=== PATIENT | female | born 1995 | race Caucasian/White ===

== ENCOUNTER 2017-06-12 16:44 | Emergency (ER) | payer BC, OTHER ==
[2017-06-12] MEDS ORDERED: MORPHINE 4 MG/ML SYR ONE ×2 (18:40→21:02)
[2017-06-12] MEDS ORDERED: ONDANSETRON 4 MG/2 ML VIAL ONE (18:41)
[2017-06-12] MEDS ORDERED: NA CHLORIDE 0.9% 1,000 ML ONE (18:43)
[2017-06-12 18:50] LABS: Absolute Monocytes 0.8 K/uL (0.1-1.3); Absolute Neutrophil 9.7 K/uL (1.8-8.0); Basophils % 0.6 % (0-1.3); Eosinophils % 0.6 % (0-4.4); Hematocrit 39.7 % (36.0-45.0); MCH 27.9 pg (27.0-35.0); MPV 7.4 fL (7.6-11.3); Monocytes % 5.8 % (3.3-12.3); RBC Red Blood Cell Count 4.67 M/uL (3.86-4.86)
[2017-06-12 19:05] LABS: Urine Blood TRACE (NEG); Urine Glucose NEGATIVE (NEG); Urine Protein NEGATIVE (NEG); Urine Specific Gravity 1.025 (1.005-1.030)
[2017-06-12 19:07] LABS: Bicarbonate 26 mEq/L (21-31); Glucose Level 88 mg/dL (65-120); Lipase 23 U/L (22-51); Potassium 3.8 mEq/L (3.6-5.0); Sodium Level 137 mEq/L (135-145)
[2017-06-12 19:07] LABS: Urine Bacteria <20 /HPF (<20); Urine Culture Reflex Order NOT NEEDED; Urine Mucus 1+ /HPF (NONE SEEN); Urine RBC <5 /HPF (NONE SEEN)
[2017-06-12 19:13] LABS: ALT/SGPT 16 IU/L (10-60); AST/SGOT 18 IU/L (10-42); Albumin 4.6 g/dL (3.2-5.5); Alkaline Phosphatase 67 IU/L (42-121); Amylase Level 45 U/L (28-100); BUN Blood Urea Nitrogen 14 mg/dL (6-20); Bilirubin Direct < 0.1 mg/dL (0-0.2); Bilirubin Total 0.3 mg/dL (0.3-1.2); Protein, Total 7.7 g/dL (6.0-8.3)
--- NOTE | 2017-06-12 20:42 | RAD REPORT ---
EXAM DESCRIPTION: CT - Abdomen Pelvis W Contrast - 06/12/2017 8:28 pm CLINICAL HISTORY: Right lower quadrant pain, history of ovarian cysts COMPARISON: November 2015 TECHNIQUE: Biphasic, helical CT imaging of the abdomen and pelvis was performed following 100 ml non -ionic IV contrast. Oral contrast was given. All CT scans are performed using dose optimization technique as appropriate and may include automated exposure control or mA/KV adjustment according to patient size. FINDINGS: No suspicious findings in the lung bases. The liver, spleen, and pancreas show no suspicious findings. Gallbladder and biliary tree are also wi thout suspicious finding. Symmetric renal function is seen with no hydronephrosis or suspicious renal mass. No pyelonephritis o r acute renal parenchymal process. No urinary bladder abnormality. Uterus and left ovary show no suspicious findings. An approximately 3 centimeter ruptured or involuting right ovarian cyst present. There is free fluid adjacent to the right ovary and in the cul-de-sac. This is relatively low in attenuation and without any significant hemorrhagic component. No dilated bowel loops or bowel wall thickening. No appendicitis findings. Cecum is low lying along t he floor the pelvis. No free air, free fluid or inflammatory stranding. No hernia, mass or bulky lym phadenopathy. No adrenal abnormality. No suspicious bony findings. IMPRESSION: Approximately 3 centimeter ruptured or involuting right ovarian cyst with free fluid in the cul-de-sac and right adnexa. This is the most likely etiology for the patient's pain symptoms. No appendicitis or other acute GI process. No pyelonephritis or other abnormality to explain right lo wer quadrant symptoms.
[2017-06-12] MEDS ORDERED: KETOROLAC 30 MG/ML INJ ONE (21:03)
--- NOTE | 2017-06-12 21:05 | EDPHYS ---
Physician Documentation [facility] Name: Maria Rivera Age: 21 yrs Sex: Female : 1995 Arrival Date: 06/12/2017 Time: 16:47 Bed 30 Private MD: Manny Avery T ED Physician Alverto Mondragon HPI: 06/12 20:00 This 21 yrs old Female presents to ER via Ambulatory with complaints of pm1 Abdominal Pain. 20:00 The patient presents with abdominal pain in the lower abdomen. Onset: The pm1 symptoms/episode began/occurred 1 week(s) ago. The symptoms do not radiate. Associated signs and symptoms: Pertinent negatives: nausea, vomiting, and diarrhea, chest pain, dysuria, fever, shortness of breath. The symptoms are described as achy, constant. Modifying factors: The symptoms are alleviated by nothing, the symptoms are aggravated by nothing. Severity of pain: in the emergency department the pain is actually worse. The patient has not experienced similar symptoms in the past. The patient has not recently seen a physician. Patient with history of ovarian cysts. 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 - Social history:: Smoking status: Patient/guardian denies using tobacco. ROS: 20:00 Constitutional: Negative for fever, chills, and weight loss, Eyes: Negative for injury, pm1 pain, redness, and discharge, ENT: Negative for injury, pain, and discharge, Neck: Negative for injury, pain, and swelling, Cardiovascular: Negative for chest pain, palpitations, and edema, Respiratory: Negative for shortness of breath, cough, wheezing, and pleuritic chest pain. 20:00 Back: Negative for injury and pain, : Negative for injury, bleeding, discharge, and swelling, MS/Extremity: Negative for injury and deformity, Skin: Negative for injury, rash, and discoloration, Neuro: Negative for headache, weakness, numbness, tingling, and seizure. 20:00 Abdomen/GI: Positive for abdominal pain, Negative for nausea, vomiting, and diarrhea. Exam: 20:00 Constitutional: This is a well developed, well nourished patient who is awake, alert, pm1 and in no acute distress. Head/Face: Normocephalic, atraumatic. Eyes: Pupils equal round and reactive to light, extra-ocular motions intact. Lids and lashes normal. Conjunctiva and sclera are non-icteric and not injected. Cornea within normal limits. Periorbital areas with no swelling, redness, or edema. ENT: Nares patent. No nasal discharge, no septal abnormalities noted. Tympanic membranes are normal and external auditory canals are clear. Oropharynx with no redness, swelling, or masses, exudates, or evidence of obstruction, uvula midline. Mucous membranes moist. Neck: Trachea midline, no thyromegaly or masses palpated, and no cervical lymphadenopathy. Supple, full range of motion without nuchal rigidity, or vertebral point tenderness. No Meningismus. Chest/axilla: Normal chest wall appearance and motion. Nontender with no deformity. No lesions are appreciated. Cardiovascular: Regular rate and rhythm with a normal S1 and S2. No gallops, murmurs, or rubs. Normal PMI, no JVD. No pulse deficits. Respiratory: Lungs have equal breath sounds bilaterally, clear to auscultation and percussion. No rales, rhonchi or wheezes noted. No increased work of breathing, no retractions or nasal flaring. Back: No spinal tenderness. No costovertebral tenderness. Full range of motion. Skin: Warm, dry with normal turgor. Normal color with no rashes, no lesions, and no evidence of cellulitis. MS/ Extremity: Pulses equal, no cyanosis. Neurovascular intact. Full, normal range of motion. Neuro: Awake and alert, GCS 15, oriented to person, place, time, and situation. Cranial nerves II-XII grossly intact. Motor strength 5/5 in all extremities. Sensory grossly intact. Cerebellar exam normal. Normal gait. 20:00 Abdomen/GI: Inspection: abdomen appears normal, Bowel sounds: normal, Palpation: soft, mild abdominal tenderness, in the left lower quadrant, mass, is not appreciated, rebound tenderness, is not appreciated. Vital Signs: 17:20 BP 133 / 65; Pulse 82; Resp 16; Temp 98.4; Pulse Ox 100% on R/A; Weight 68.95 kg; hb Height 5 ft. 4 in. (162.56 cm); Pain 8/10; 19:00 BP 120 / 76; Pulse 69; Resp 17; Pulse Ox 100% on R/A; rk2 20:32 BP 115 / 75; Pulse 71; Resp 16; Pulse Ox 99% on R/A; rk2 21:30 BP 119 / 76; Pulse 76; Resp 16; Pulse Ox 100% on R/A; rk2 17:20 Body Mass Index 26.09 (68.95 kg, 162.56 cm) hb MDM: 17:29 Patient medically screened. pm1 21:03 Data reviewed: vital signs. Data interpreted: Pulse oximetry: on room air is 100 %. pm1 Interpretation: normal. Counseling: I had a detailed discussion with the patient and/or guardian regarding: the historical points, exam findings, and any diagnostic results supporting the discharge/admit diagnosis, lab results, radiology results, the need for outpatient follow up, to return to the emergency department if symptoms worsen or persist or if there are any questions or concerns that arise at home. 06/12 18:13 Order name: Amylase, Serum; Complete Time: 19:23 pm06/12 18:13 Order name: Basic Metabolic Panel; Complete Time: 19:23 pm06/12 18:13 Order name: CBC with Diff; Complete Time: 19:01 pm06/12 18:13 Order name: Creatinine for Radiology; Complete Time: 19:23 pm06/12 18:13 Order name: Hepatic Function; Complete Time: 19:23 pm06/12 18:13 Order name: Lipase; Complete Time: 19:23 pm06/12 18:13 Order name: Urine Microscopic Only; Complete Time: 19:23 pm06/12 18:17 Order name: CT Abd/Pelvis - W/Contrast; Complete Time: 20:51 pm06/12 18:29 Order name: Urine Dipstick--Ancillary (enter results); Complete Time: 19:23 bd 06/12 18:29 Order name: Urine --Ancillary (enter results); Complete Time: 19:23 bd 06/12 18:13 Order name: Urine Test (obtain specimen); Complete Time: 18:28 pm06/12 18:13 Order name: IV Saline Lock; Complete Time: 20:58 pm1 06/12 18:13 Order name: Labs collected and sent; Complete Time: 20:58 pm1 06/12 18:13 Order name: Urine Dipstick-Ancillary (obtain specimen); Complete Time: 18:28 pm1 Administered Medications: 18:49 Drug: morphine 4 mg Route: IVP; Site: right antecubital; rk2 21:41 Follow up: Response: No adverse reaction rk2 18:49 Drug: Zofran 4 mg Route: IVP; Site: right antecubital; rk2 21:40 Follow up: Response: No adverse reaction rk2 18:49 Drug: NS 0.9% 1000 ml Route: IV; Rate: 1000 ml; Site: right antecubital; rk2 20:00 Follow up: Response: No adverse reaction; IV Status: Completed infusion rk2 21:07 Drug: morphine 4 mg Route: IVP; Site: right antecubital; rk2 21:40 Follow up: Response: No adverse reaction rk2 21:08 Drug: TORadol 30 mg Route: IVP; Site: right antecubital; rk2 21:40 Follow up: Response: No adverse reaction rk2 Disposition: 06/13 12:35 Co-signature as Attending Physician, Alverto Mondragon MD. Disposition: 06/12/17 21:05 Discharged to Home. Impression: Other ovarian cysts - right - ruptured. - Condition is Stable. - Discharge Instructions: Ovarian Cyst. - Prescriptions for Naprosyn 500 mg Oral Tablet - take 1 tablet by ORAL route 2 times per day take with food; 30 tablet. Tramadol 50 mg Oral Tablet - take 1 tablet by ORAL route every 8 hours as needed; 12 tablet. - Medication Reconciliation Form, Thank You Letter, Prescription Opioid Use form. - Follow up: Emergency Department; When: As needed; Reason: Worsening of condition. Follow up: Deborah Barton MD; When: 2 - 3 days; Reason: Recheck today's complaints, Continuance of care, Re-evaluation by your physician. Follow up: Danita Poe MD; When: 2 - 3 days; Reason: Recheck today's complaints, Continuance of care, Re-evaluation by your physician. - Problem is new. - Symptoms have improved. Signatures: Dispatcher [employer] EDSC Heather Gay, INTERNAL MEDICINE PHYSICIAN-C INTERNAL MEDICINE PHYSICIAN-Csnw Jin Hall, PREFITTER DOORS PREFITTER DOORS pm1 Larissa Ware, RN RN hb Alverto Mondragon MD MD gs Renee Aragon, RN RN rk2
--- NOTE | 2017-06-12 21:05 | ER ---
Nurse's Notes [facility] Name: Maria Rivera Age: 21 yrs Sex: Female : 1995 Arrival Date: 06/12/2017 Time: 16:47 Bed 30 Private MD: Manny Avery T Diagnosis: Other ovarian cysts-right - ruptured Presentation: 06/12 17:17 Presenting complaint: Patient states: Intermittent RLQ pain x 2 weeks. Today she felt a hb pop and then a gushing heat in the same area, then severe pain that radiates to LLQ and left flank and left low back. Denies vaginal bleeding/diarrhea/constipation/urinary s/s. Hx ovarian cysts. Transition of care: patient was not received from another setting of care. Onset of symptoms was June 12, 2017. Initial Sepsis Screen: Does the patient meet any 2 criteria? No. Patient's initial sepsis screen is negative. Does the patient have a suspected source of infection? No. Patient's initial sepsis screen is negative. Care prior to arrival: None. 17:17 Method Of Arrival: Ambulatory 17:17 Acuity: BROOKE 3 hb Triage Assessment: 18:04 General: Appears in no apparent distress. well groomed, well developed, well nourished, rk2 Behavior is cooperative. Pain: Complains of pain in abdomen. Neuro: Level of Consciousness is alert, obeys commands, Oriented to person, place, time, situation. Respiratory: Airway is patent Respiratory effort is even, unlabored, Respiratory pattern is regular, symmetrical, Breath sounds are clear bilaterally. GI: Abdomen is flat, Bowel sounds present X 4 quads. Abd is soft X 4 quads Abdomen is tender to palpation in left upper quadrant, right lower quadrant and left lower quadrant. Derm: Skin is pink, warm \T\ dry. 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 - Social history:: Smoking status: Patient/guardian denies using tobacco. Screenin:50 Abuse screen: Denies threats or abuse. Nutritional screening: No deficits noted. rk2 Tuberculosis screening: No symptoms or risk factors identified. Fall Risk None identified. Assessment: 19:08 Reassessment: Pt. resting in room \T\ this time... iv fluids infusing. Pt. appears to be rk2 in no obvious distress nor did she voice any needs \T\ this time. 20:00 Reassessment: Pt. resting in room \T\ this time... appears to be in no obvious distress. rk2 No needs voiced. 21:10 Reassessment: Pt. received pain medication... resting in room \T\ this time waiting for rk2 ride home. No other needs voiced. Vital Signs: 17:20 BP 133 / 65; Pulse 82; Resp 16; Temp 98.4; Pulse Ox 100% on R/A; Weight 68.95 kg; hb Height 5 ft. 4 in. (162.56 cm); Pain 8/10; 19:00 BP 120 / 76; Pulse 69; Resp 17; Pulse Ox 100% on R/A; rk2 20:32 BP 115 / 75; Pulse 71; Resp 16; Pulse Ox 99% on R/A; rk2 21:30 BP 119 / 76; Pulse 76; Resp 16; Pulse Ox 100% on R/A; rk2 17:20 Body Mass Index 26.09 (68.95 kg, 162.56 cm) hb ED Course: 16:47 Patient arrived in ED. mr 16:47 Manny Avery MD is Private Physician. mr 17:20 Triage completed. hb 17:20 Arm band placed on right wrist. hb 17:21 Renee Aragon, NIEVES is Primary Nurse. rk2 17:26 Jin Hall NP is PHCP. pm1 17:26 Alverto Mondragon MD is Attending Physician. pm1 17:50 Patient has correct armband on for positive identification. Bed in low position. Call rk2 light in reach. 20:24 CT completed. Patient moved to CT via wheelchair. Patient moved back from CT. cw1 20:28 CT Abd/Pelvis - W/Contrast In Process Unspecified. EDMS 21:04 Deborah Barton MD is Referral Physician. pm1 21:04 Danita Poe MD is Referral Physician. pm1 21:42 No provider procedures requiring assistance completed. IV discontinued. rk2 Administered Medications: 18:49 Drug: morphine 4 mg Route: IVP; Site: right antecubital; rk2 21:41 Follow up: Response: No adverse reaction rk2 18:49 Drug: Zofran 4 mg Route: IVP; Site: right antecubital; rk2 21:40 Follow up: Response: No adverse reaction rk2 18:49 Drug: NS 0.9% 1000 ml Route: IV; Rate: 1000 ml; Site: right antecubital; rk2 20:00 Follow up: Response: No adverse reaction; IV Status: Completed infusion rk2 21:07 Drug: morphine 4 mg Route: IVP; Site: right antecubital; rk2 21:40 Follow up: Response: No adverse reaction rk2 21:08 Drug: TORadol 30 mg Route: IVP; Site: right antecubital; rk2 21:40 Follow up: Response: No adverse reaction rk2 Outcome: 21:05 Discharge ordered by . pm1 21:42 Discharged to home ambulatory. rk2 21:42 Condition: good 21:42 Discharge instructions given to patient, Prescriptions given X 2. 21:44 Patient left the ED. rk2 Signatures: Dispatcher [employer] EDSC Yancy Meza mr DeG uzman, Poonam cw1 Jin Hall NP [employer] PROCESSOR pm1 Larissa Ware RN RN hb Kidder, Rhonda, RN RN rk2
[2017-06-12 21:47] VITALS: TEMP 98.4
[2017-06-12 21:51] VITALS: BP 119/76; O2SAT 100
== END 2017-06-12 21:44 | disposition home or self-care (01) ==
LOC: ER 16:44
DX: N83.291 Other ovarian cyst, right side (principal)
CPT/HCPCS: 36415; 74177; 80048; 80076; 81003; 81015; 81025; 82150; 83690; 85025; 96361; 96374; 96375; 99284; J2405; J7030; Q9967

== ENCOUNTER 2024-07-06 12:04 | Emergency (ER) | payer BC, OTHER ==
--- OUTSIDE RECORDS SUMMARY | 2024-07-06 12:16 | XMS REPORT | Continuity of Care Document ---
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 [facility] Loestrin Fe 03/05 Loestrin Fe 03/05 Yes Danita Browna 1 tablet Common [facility] Zofran ODT Zofran ODT Yes Danita Poe 1 Tab Common [facility] Immunizations Ordered Immunization Name Filled Immunization Name Date Status Comments Source Influenza Virus Vaccine Quad .5 mL IM 6+ MO (FLUZONE/FLULAVAL/FL UARIX) 2023-07-11 13:43:00 Completed [facility] TDAP 2023-07-11 13:43:00 Completed [facility] Varicella (varivax)(chicken pox) 2023-07-11 13:43:00 Completed [facility] SARS-COV-2 COVID-19 PFIZER VACCINE 2023-07-11 13:43:00 Completed [facility] Meningococcal B, OMV 2023-07-11 13:43:00 Completed [facility] Influenza Virus Vaccine Quad IM, Preserv and ABX Free 6 MO-64 YRS (FLUCELVAX) 2023-07-11 13:43:00 Completed [facility] Influenza Virus Vaccine Quad .5 mL IM 6+ MO (FLUZONE/FLULAVAL/FL UARIX) 2023-01-05 13:31:06 Completed [facility] TDAP 2023-01-05 13:31:06 Completed [facility] Varicella (varivax)(chicken pox) 2023-01-05 13:31:06 Completed [facility] SARS-COV-2 COVID-19 PFIZER VACCINE 2023-01-05 13:31:06 Completed [facility] Meningococcal B, OMV 2023-01-05 13:31:06 Completed [facility] Influenza Virus Vaccine Quad IM, Preserv and ABX Free 6 MO-64 YRS (FLUCELVAX) 2023-01-05 13:31:06 Completed [facility] Influenza Virus Vaccine Quad .5 mL IM 6+ MO (FLUZONE/FLULAVAL/FL UARIX) 2022-11-14 11:00:00 Completed [facility] TDAP 2022-11-14 11:00:00 Completed [facility] Varicella (varivax)(chicken pox) 2022-11-14 11:00:00 Completed [facility] SARS-COV-2 COVID-19 PFIZER VACCINE 2022-11-14 11:00:00 Completed [facility] Meningococcal B, OMV 2022-11-14 11:00:00 Completed [facility] Influenza Virus Vaccine Quad IM, Preserv and ABX Free 6 MO-64 YRS (FLUCELVAX) 2022-11-14 11:00:00 Completed [facility] Influenza Virus Vaccine Quad IM, Preserv and ABX Free 6 MO-64 YRS 2022-01-26 00:00:00 Completed [facility] Influenza Virus Vaccine Quad IM, Preserv and ABX Free 6 MO-64 YRS 2022-01-26 00:00:00 Completed [facility] Influenza Virus Vaccine Quad IM, Preserv and ABX Free 6 MO-64 YRS 2022-01-26 00:00:00 Completed [facility] Influenza Virus Vaccine Quad IM, Preserv and ABX Free 6 MO-64 YRS 2022-01-26 00:00:00 Completed [facility] Influenza Virus Vaccine Quad IM, Preserv and ABX Free 6 MO-64 YRS 2022-01-26 00:00:00 Completed [facility] Influenza Virus Vaccine Quad IM, Preserv and ABX Free 6 MO-64 YRS 2022-01-26 00:00:00 Completed [facility] Influenza Virus Vaccine Quad IM, Preserv and ABX Free 6 MO-64 YRS 2022-01-26 00:00:00 Completed [facility] Influenza Virus Vaccine Quad IM, Preserv and ABX Free 6 MO-64 YRS 2022-01-26 00:00:00 Completed [facility] Influenza Virus Vaccine Quad IM, Preserv and ABX Free 6 MO-64 YRS 2022-01-26 00:00:00 Completed [facility] Influenza Virus Vaccine Quad IM, Preserv and ABX Free 6 MO-64 YRS 2022-01-26 00:00:00 Completed [facility] Influenza Virus Vaccine Quad IM, Preserv and ABX Free 6 MO-64 YRS 2022-01-26 00:00:00 Completed [facility] Influenza Virus Vaccine Quad IM, Preserv and ABX Free 6 MO-64 YRS 2022-01-26 00:00:00 Completed [facility] Influenza Virus Vaccine Quad IM, Preserv and ABX Free 6 MO-64 YRS 2022-01-26 00:00:00 Completed [facility] Influenza Virus Vaccine Quad IM, Preserv and ABX Free 6 MO-64 YRS 2022-01-26 00:00:00 Completed [facility] Influenza Virus Vaccine Quad IM, Preserv and ABX Free 6 MO-64 YRS 2022-01-26 00:00:00 Completed [facility] Influenza Virus Vaccine Quad IM, Preserv and ABX Free 6 MO-64 YRS 2022-01-26 00:00:00 Completed [facility] Influenza Virus Vaccine Quad IM, Preserv and ABX Free 6 MO-64 YRS 2022-01-26 00:00:00 Completed [facility] Influenza Virus Vaccine Quad IM, Preserv and ABX Free 6 MO-64 YRS 2022-01-26 00:00:00 Completed [facility] Influenza Virus Vaccine Quad IM, Preserv and ABX Free 6 MO-64 YRS 2022-01-26 00:00:00 Completed [facility] Influenza Virus Vaccine Quad IM, Preserv and ABX Free 6 MO-64 YRS 2022-01-26 00:00:00 Completed [facility] Influenza Virus Vaccine Quad IM, Preserv and ABX Free 6 MO-64 YRS 2022-01-26 00:00:00 Completed [facility] Influenza Virus Vaccine Quad IM, Preserv and ABX Free 6 MO-64 YRS 2022-01-26 00:00:00 Completed [facility] Influenza Virus Vaccine Quad IM, Preserv and ABX Free 6 MO-64 YRS 2022-01-26 00:00:00 Completed [facility] Influenza Virus Vaccine Quad IM, Preserv and ABX Free 6 MO-64 YRS 2022-01-26 00:00:00 Completed [facility] Influenza Virus Vaccine Quad IM, Preserv and ABX Free 6 MO-64 YRS 2022-01-26 00:00:00 Completed [facility] Influenza Virus Vaccine Quad IM, Preserv and ABX Free 6 MO-64 YRS 2022-01-26 00:00:00 Completed [facility] Influenza Virus Vaccine Quad IM, Preserv and ABX Free 6 MO-64 YRS (FLUCELVAX) 2022-01-26 00:00:00 Completed [facility] Influenza Virus Vaccine Quad .5 mL IM 6+ MO (FLUZONE/FLULAVAL/FL UARIX) 2021-05-13 00:00:00 Completed [facility] TDAP 2021-05-13 00:00:00 Completed [facility] Varicella (varivax)(chicken pox) 2021-05-13 00:00:00 Completed [facility] SARS-COV-2 COVID-19 PFIZER VACCINE 2021-05-13 00:00:00 Completed [facility] Meningococcal B, OMV 2021-05-13 00:00:00 Completed [facility] Meningococcal B, OMV 2021-01-13 00:00:00 Completed [facility] Meningococcal B, OMV 2021-01-13 00:00:00 Completed [facility] Meningococcal B, OMV 2021-01-13 00:00:00 Completed [facility] Meningococcal B, OMV 2021-01-13 00:00:00 Completed [facility] Meningococcal B, OMV 2021-01-13 00:00:00 Completed [facility] Meningococcal B, OMV 2021-01-13 00:00:00 Completed [facility] Meningococcal B, OMV 2021-01-13 00:00:00 Completed [facility] Meningococcal B, OMV 2021-01-13 00:00:00 Completed [facility] Meningococcal B, OMV 2021-01-13 00:00:00 Completed [facility] Meningococcal B, OMV 2021-01-13 00:00:00 Completed [facility] Meningococcal B, OMV 2021-01-13 00:00:00 Completed [facility] Meningococcal B, OMV 2021-01-13 00:00:00 Completed [facility] Meningococcal B, OMV 2021-01-13 00:00:00 Completed [facility] Meningococcal B, OMV 2021-01-13 00:00:00 Completed [facility] Meningococcal B, OMV 2021-01-13 00:00:00 Completed [facility] Meningococcal B, OMV 2021-01-13 00:00:00 Completed [facility] Meningococcal B, OMV 2021-01-13 00:00:00 Completed [facility] Meningococcal B, OMV 2021-01-13 00:00:00 Completed [facility] Meningococcal B, OMV 2021-01-13 00:00:00 Completed [facility] Meningococcal B, OMV 2021-01-13 00:00:00 Completed [facility] Meningococcal B, OMV 2021-01-13 00:00:00 Completed [facility] Meningococcal B, OMV 2021-01-13 00:00:00 Completed [facility] Meningococcal B, OMV 2021-01-13 00:00:00 Completed [facility] Meningococcal B, OMV 2021-01-13 00:00:00 Completed [facility] Meningococcal B, OMV 2021-01-13 00:00:00 Completed [facility] Meningococcal B, OMV 2021-01-13 00:00:00 Completed [facility] Meningococcal B, OMV 2021-01-13 00:00:00 Completed [facility] Meningococcal B, OMV 2021-01-13 00:00:00 Completed [facility] Meningococcal B, OMV 2021-01-13 00:00:00 Completed SARS-COV-2 COVID-19 PFIZER VACCINE 2020-10-11 00:00:00 Completed [facility] SARS-COV-2 COVID-19 PFIZER VACCINE 2020-10-11 00:00:00 Completed [facility] SARS-COV-2 COVID-19 PFIZER VACCINE 2020-10-11 00:00:00 Completed [facility] SARS-COV-2 COVID-19 PFIZER VACCINE 2020-10-11 00:00:00 Completed [facility] SARS-COV-2 COVID-19 PFIZER VACCINE 2020-10-11 00:00:00 Completed [facility] SARS-COV-2 COVID-19 PFIZER VACCINE 2020-10-11 00:00:00 Completed [facility] SARS-COV-2 COVID-19 PFIZER VACCINE 2020-10-11 00:00:00 Completed [facility] SARS-COV-2 COVID-19 PFIZER VACCINE 2020-10-11 00:00:00 Completed [facility] SARS-COV-2 COVID-19 PFIZER VACCINE 2020-10-11 00:00:00 Completed [facility] SARS-COV-2 COVID-19 PFIZER VACCINE 2020-10-11 00:00:00 Completed [facility] SARS-COV-2 COVID-19 PFIZER VACCINE 2020-10-11 00:00:00 Completed [facility] SARS-COV-2 COVID-19 PFIZER VACCINE 2020-10-11 00:00:00 Completed [facility] SARS-COV-2 COVID-19 PFIZER VACCINE 2020-10-11 00:00:00 Completed [facility] SARS-COV-2 COVID-19 PFIZER VACCINE 2020-10-11 00:00:00 Completed [facility] SARS-COV-2 COVID-19 PFIZER VACCINE 2020-10-11 00:00:00 Completed [facility] SARS-COV-2 COVID-19 PFIZER VACCINE 2020-10-11 00:00:00 Completed [facility] SARS-COV-2 COVID-19 PFIZER VACCINE 2020-10-11 00:00:00 Completed [facility] SARS-COV-2 COVID-19 PFIZER VACCINE 2020-10-11 00:00:00 Completed [facility] SARS-COV-2 COVID-19 PFIZER VACCINE 2020-10-11 00:00:00 Completed [facility] SARS-COV-2 COVID-19 PFIZER VACCINE 2020-10-11 00:00:00 Completed [facility] SARS-COV-2 COVID-19 PFIZER VACCINE 2020-10-11 00:00:00 Completed [facility] SARS-COV-2 COVID-19 PFIZER VACCINE 2020-10-11 00:00:00 Completed [facility] SARS-COV-2 COVID-19 PFIZER VACCINE 2020-10-11 00:00:00 Completed [facility] SARS-COV-2 COVID-19 PFIZER VACCINE 2020-10-11 00:00:00 Completed [facility] SARS-COV-2 COVID-19 PFIZER VACCINE 2020-10-11 00:00:00 Completed [facility] SARS-COV-2 COVID-19 PFIZER VACCINE 2020-10-11 00:00:00 Completed [facility] SARS-COV-2 COVID-19 PFIZER VACCINE 2020-10-11 00:00:00 Completed [facility] SARS-COV-2 COVID-19 PFIZER VACCINE 2020-10-11 00:00:00 Completed [facility] SARS-COV-2 COVID-19 PFIZER VACCINE 2020-10-11 00:00:00 Completed [facility] SARS-COV-2 COVID-19 PFIZER VACCINE 2020-10-11 00:00:00 Completed [facility] SARS-COV-2 COVID-19 PFIZER VACCINE 2020-10-11 00:00:00 Completed SARS-COV-2 COVID-19 PFIZER VACCINE 2020-10-11 00:00:00 Completed [facility] SARS-COV-2 COVID-19 PFIZER VACCINE 2020-09-20 00:00:00 Completed [facility] SARS-COV-2 COVID-19 PFIZER VACCINE 2020-09-20 00:00:00 Completed [facility] SARS-COV-2 COVID-19 PFIZER VACCINE 2020-09-20 00:00:00 Completed [facility] SARS-COV-2 COVID-19 PFIZER VACCINE 2020-09-20 00:00:00 Completed [facility] SARS-COV-2 COVID-19 PFIZER VACCINE 2020-09-20 00:00:00 Completed [facility] SARS-COV-2 COVID-19 PFIZER VACCINE 2020-09-20 00:00:00 Completed [facility] SARS-COV-2 COVID-19 PFIZER VACCINE 2020-09-20 00:00:00 Completed [facility] SARS-COV-2 COVID-19 PFIZER VACCINE 2020-09-20 00:00:00 Completed [facility] SARS-COV-2 COVID-19 PFIZER VACCINE 2020-09-20 00:00:00 Completed [facility] SARS-COV-2 COVID-19 PFIZER VACCINE 2020-09-20 00:00:00 Completed [facility] SARS-COV-2 COVID-19 PFIZER VACCINE 2020-09-20 00:00:00 Completed [facility] SARS-COV-2 COVID-19 PFIZER VACCINE 2020-09-20 00:00:00 Completed [facility] SARS-COV-2 COVID-19 PFIZER VACCINE 2020-09-20 00:00:00 Completed [facility] SARS-COV-2 COVID-19 PFIZER VACCINE 2020-09-20 00:00:00 Completed [facility] SARS-COV-2 COVID-19 PFIZER VACCINE 2020-09-20 00:00:00 Completed [facility] SARS-COV-2 COVID-19 PFIZER VACCINE 2020-09-20 00:00:00 Completed [facility] SARS-COV-2 COVID-19 PFIZER VACCINE 2020-09-20 00:00:00 Completed [facility] SARS-COV-2 COVID-19 PFIZER VACCINE 2020-09-20 00:00:00 Completed [facility] SARS-COV-2 COVID-19 PFIZER VACCINE 2020-09-20 00:00:00 Completed [facility] SARS-COV-2 COVID-19 PFIZER VACCINE 2020-09-20 00:00:00 Completed [facility] SARS-COV-2 COVID-19 PFIZER VACCINE 2020-09-20 00:00:00 Completed [facility] SARS-COV-2 COVID-19 PFIZER VACCINE 2020-09-20 00:00:00 Completed [facility] SARS-COV-2 COVID-19 PFIZER VACCINE 2020-09-20 00:00:00 Completed [facility] SARS-COV-2 COVID-19 PFIZER VACCINE 2020-09-20 00:00:00 Completed [facility] SARS-COV-2 COVID-19 PFIZER VACCINE 2020-09-20 00:00:00 Completed [facility] SARS-COV-2 COVID-19 PFIZER VACCINE 2020-09-20 00:00:00 Completed [facility] SARS-COV-2 COVID-19 PFIZER VACCINE 2020-09-20 00:00:00 Completed [facility] SARS-COV-2 COVID-19 PFIZER VACCINE 2020-09-20 00:00:00 Completed [facility] SARS-COV-2 COVID-19 PFIZER VACCINE 2020-09-20 00:00:00 Completed [facility] SARS-COV-2 COVID-19 PFIZER VACCINE 2020-09-20 00:00:00 Completed [facility] SARS-COV-2 COVID-19 PFIZER VACCINE 2020-09-20 00:00:00 Completed [facility] SARS-COV-2 COVID-19 PFIZER VACCINE 2020-09-20 00:00:00 Completed [facility] SARS-COV-2 COVID-19 PFIZER VACCINE 2020-09-20 00:00:00 Completed [facility] Varicella (varivax)(chicken pox) 2020-04-28 00:00:00 Completed [facility] Varicella (varivax)(chicken pox) 2020-04-28 00:00:00 Completed [facility] Varicella (varivax)(chicken pox) 2020-04-28 00:00:00 Completed [facility] Varicella (varivax)(chicken pox) 2020-04-28 00:00:00 Completed [facility] Varicella (varivax)(chicken pox) 2020-04-28 00:00:00 Completed [facility] Varicella (varivax)(chicken pox) 2020-04-28 00:00:00 Completed [facility] Varicella (varivax)(chicken pox) 2020-04-28 00:00:00 Completed [facility] Varicella (varivax)(chicken pox) 2020-04-28 00:00:00 Completed [facility] Varicella (varivax)(chicken pox) 2020-04-28 00:00:00 Completed [facility] Varicella (varivax)(chicken pox) 2020-04-28 00:00:00 Completed [facility] Varicella (varivax)(chicken pox) 2020-04-28 00:00:00 Completed [facility] Varicella (varivax)(chicken pox) 2020-04-28 00:00:00 Completed [facility] Varicella (varivax)(chicken pox) 2020-04-28 00:00:00 Completed [facility] Varicella (varivax)(chicken pox) 2020-04-28 00:00:00 Completed [facility] Varicella (varivax)(chicken pox) 2020-04-28 00:00:00 Completed [facility] Varicella (varivax)(chicken pox) 2020-04-28 00:00:00 Completed [facility] Varicella (varivax)(chicken pox) 2020-04-28 00:00:00 Completed [facility] Varicella (varivax)(chicken pox) 2020-04-28 00:00:00 Completed [facility] Varicella (varivax)(chicken pox) 2020-04-28 00:00:00 Completed [facility] Varicella (varivax)(chicken pox) 2020-04-28 00:00:00 Completed [facility] Varicella (varivax)(chicken pox) 2020-04-28 00:00:00 Completed [facility] Varicella (varivax)(chicken pox) 2020-04-28 00:00:00 Completed [facility] Varicella (varivax)(chicken pox) 2020-04-28 00:00:00 Completed [facility] Varicella (varivax)(chicken pox) 2020-04-28 00:00:00 Completed [facility] Varicella (varivax)(chicken pox) 2020-04-28 00:00:00 Completed [facility] Varicella (varivax)(chicken pox) 2020-04-28 00:00:00 Completed [facility] Varicella (varivax)(chicken pox) 2020-04-28 00:00:00 Completed [facility] Varicella (varivax)(chicken pox) 2020-04-28 00:00:00 Completed [facility] Varicella (varivax)(chicken pox) 2020-04-28 00:00:00 Completed [facility] Varicella (varivax)(chicken pox) 2020-04-28 00:00:00 Completed [facility] Varicella (varivax)(chicken pox) 2020-04-28 00:00:00 Completed [facility] Varicella (varivax)(chicken pox) 2020-04-28 00:00:00 Completed [facility] Varicella (varivax)(chicken pox) 2020-04-28 00:00:00 Completed [facility] Varicella (varivax)(chicken pox) 2020-04-28 00:00:00 Completed [facility] Varicella (varivax)(chicken pox) 2020-04-28 00:00:00 Completed [facility] Varicella (varivax)(chicken pox) 2020-04-28 00:00:00 Completed [facility] Varicella (varivax)(chicken pox) 2020-04-28 00:00:00 Completed [facility] Varicella (varivax)(chicken pox) 2020-04-28 00:00:00 Completed [facility] Varicella (varivax)(chicken pox) 2020-04-28 00:00:00 Completed [facility] Varicella (varivax)(chicken pox) 2020-04-28 00:00:00 Completed [facility] Varicella (varivax)(chicken pox) 2020-04-28 00:00:00 Completed [facility] Varicella (varivax)(chicken pox) 2020-04-28 00:00:00 Completed [facility] Varicella (varivax)(chicken pox) 2020-04-28 00:00:00 Completed [facility] Varicella (varivax)(chicken pox) 2020-04-28 00:00:00 Completed [facility] Varicella (varivax)(chicken pox) 2020-04-28 00:00:00 Completed [facility] Varicella (varivax)(chicken pox) 2020-04-28 00:00:00 Completed [facility] Varicella (varivax)(chicken pox) 2020-04-28 00:00:00 Completed [facility] Varicella (varivax)(chicken pox) 2020-04-28 00:00:00 Completed [facility] Varicella (varivax)(chicken pox) 2020-04-28 00:00:00 Completed [facility] Varicella (varivax)(chicken pox) 2020-04-28 00:00:00 Completed [facility] Varicella (varivax)(chicken pox) 2020-04-28 00:00:00 Completed [facility] Varicella (varivax)(chicken pox) 2020-03-25 00:00:00 Completed [facility] Varicella (varivax)(chicken pox) 2020-03-25 00:00:00 Completed [facility] Varicella (varivax)(chicken pox) 2020-03-25 00:00:00 Completed [facility] Varicella (varivax)(chicken pox) 2020-03-25 00:00:00 Completed [facility] Varicella (varivax)(chicken pox) 2020-03-25 00:00:00 Completed [facility] Varicella (varivax)(chicken pox) 2020-03-25 00:00:00 Completed [facility] Varicella (varivax)(chicken pox) 2020-03-25 00:00:00 Completed [facility] Varicella (varivax)(chicken pox) 2020-03-25 00:00:00 Completed [facility] Varicella (varivax)(chicken pox) 2020-03-25 00:00:00 Completed [facility] Varicella (varivax)(chicken pox) 2020-03-25 00:00:00 Completed [facility] Varicella (varivax)(chicken pox) 2020-03-25 00:00:00 Completed [facility] Varicella (varivax)(chicken pox) 2020-03-25 00:00:00 Completed [facility] Varicella (varivax)(chicken pox) 2020-03-25 00:00:00 Completed [facility] Varicella (varivax)(chicken pox) 2020-03-25 00:00:00 Completed [facility] Varicella (varivax)(chicken pox) 2020-03-25 00:00:00 Completed [facility] Varicella (varivax)(chicken pox) 2020-03-25 00:00:00 Completed [facility] Varicella (varivax)(chicken pox) 2020-03-25 00:00:00 Completed [facility] Varicella (varivax)(chicken pox) 2020-03-25 00:00:00 Completed [facility] Varicella (varivax)(chicken pox) 2020-03-25 00:00:00 Completed [facility] Varicella (varivax)(chicken pox) 2020-03-25 00:00:00 Completed [facility] Varicella (varivax)(chicken pox) 2020-03-25 00:00:00 Completed [facility] Varicella (varivax)(chicken pox) 2020-03-25 00:00:00 Completed [facility] Varicella (varivax)(chicken pox) 2020-03-25 00:00:00 Completed [facility] Varicella (varivax)(chicken pox) 2020-03-25 00:00:00 Completed [facility] Varicella (varivax)(chicken pox) 2020-03-25 00:00:00 Completed [facility] Varicella (varivax)(chicken pox) 2020-03-25 00:00:00 Completed [facility] Varicella (varivax)(chicken pox) 2020-03-25 00:00:00 Completed [facility] Varicella (varivax)(chicken pox) 2020-03-25 00:00:00 Completed [facility] Varicella (varivax)(chicken pox) 2020-03-25 00:00:00 Completed [facility] Varicella (varivax)(chicken pox) 2020-03-25 00:00:00 Completed [facility] Varicella (varivax)(chicken pox) 2020-03-25 00:00:00 Completed Varicella (varivax)(chicken pox) 2020-03-25 00:00:00 Completed [facility] Varicella (varivax)(chicken pox) 2020-03-25 00:00:00 Completed [facility] Varicella (varivax)(chicken pox) 2020-03-25 00:00:00 Completed [facility] Varicella (varivax)(chicken pox) 2020-03-25 00:00:00 Completed [facility] Varicella (varivax)(chicken pox) 2020-03-25 00:00:00 Completed [facility] Varicella (varivax)(chicken pox) 2020-03-25 00:00:00 Completed [facility] Varicella (varivax)(chicken pox) 2020-03-25 00:00:00 Completed [facility] Varicella (varivax)(chicken pox) 2020-03-25 00:00:00 Completed [facility] Varicella (varivax)(chicken pox) 2020-03-25 00:00:00 Completed [facility] Varicella (varivax)(chicken pox) 2020-03-25 00:00:00 Completed [facility] Varicella (varivax)(chicken pox) 2020-03-25 00:00:00 Completed [facility] Varicella (varivax)(chicken pox) 2020-03-25 00:00:00 Completed [facility] Varicella (varivax)(chicken pox) 2020-03-25 00:00:00 Completed [facility] Varicella (varivax)(chicken pox) 2020-03-25 00:00:00 Completed [facility] Varicella (varivax)(chicken pox) 2020-03-25 00:00:00 Completed [facility] Varicella (varivax)(chicken pox) 2020-03-25 00:00:00 Completed [facility] Varicella (varivax)(chicken pox) 2020-03-25 00:00:00 Completed [facility] Varicella (varivax)(chicken pox) 2020-03-25 00:00:00 Completed [facility] Varicella (varivax)(chicken pox) 2020-03-25 00:00:00 Completed [facility] Varicella (varivax)(chicken pox) 2020-03-25 00:00:00 Completed [facility] Varicella (varivax)(chicken pox) 2020-03-25 00:00:00 Completed [facility] Influenza Virus Vaccine Quad .5 mL IM 6+ MO 2019-12-04 00:00:00 Completed [facility] TDAP 2019-12-04 00:00:00 Completed [facility] Influenza Virus Vaccine Quad .5 mL IM 6+ MO 2019-12-04 00:00:00 Completed [facility] TDAP 2019-12-04 00:00:00 Completed [facility] Influenza Virus Vaccine Quad .5 mL IM 6+ MO 2019-12-04 00:00:00 Completed [facility] TDAP 2019-12-04 00:00:00 Completed [facility] Influenza Virus Vaccine Quad .5 mL IM 6+ MO 2019-12-04 00:00:00 Completed [facility] TDAP 2019-12-04 00:00:00 Completed [facility] Influenza Virus Vaccine Quad .5 mL IM 6+ MO 2019-12-04 00:00:00 Completed [facility] TDAP 2019-12-04 00:00:00 Completed [facility] Influenza Virus Vaccine Quad .5 mL IM 6+ MO 2019-12-04 00:00:00 Completed [facility] TDAP 2019-12-04 00:00:00 Completed [facility] Influenza Virus Vaccine Quad .5 mL IM 6+ MO 2019-12-04 00:00:00 Completed [facility] TDAP 2019-12-04 00:00:00 Completed [facility] Influenza Virus Vaccine Quad .5 mL IM 6+ MO 2019-12-04 00:00:00 Completed [facility] TDAP 2019-12-04 00:00:00 Completed [facility] Influenza Virus Vaccine Quad .5 mL IM 6+ MO 2019-12-04 00:00:00 Completed [facility] TDAP 2019-12-04 00:00:00 Completed [facility] Influenza Virus Vaccine Quad .5 mL IM 6+ MO 2019-12-04 00:00:00 Completed [facility] TDAP 2019-12-04 00:00:00 Completed [facility] Influenza Virus Vaccine Quad .5 mL IM 6+ MO 2019-12-04 00:00:00 Completed [facility] TDAP 2019-12-04 00:00:00 Completed [facility] Influenza Virus Vaccine Quad .5 mL IM 6+ MO 2019-12-04 00:00:00 Completed [facility] TDAP 2019-12-04 00:00:00 Completed [facility] Influenza Virus Vaccine Quad .5 mL IM 6+ MO 2019-12-04 00:00:00 Completed [facility] TDAP 2019-12-04 00:00:00 Completed [facility] Influenza Virus Vaccine Quad .5 mL IM 6+ MO 2019-12-04 00:00:00 Completed [facility] TDAP 2019-12-04 00:00:00 Completed [facility] Influenza Virus Vaccine Quad .5 mL IM 6+ MO 2019-12-04 00:00:00 Completed [facility] TDAP 2019-12-04 00:00:00 Completed [facility] Influenza Virus Vaccine Quad .5 mL IM 6+ MO 2019-12-04 00:00:00 Completed [facility] TDAP 2019-12-04 00:00:00 Completed [facility] Influenza Virus Vaccine Quad .5 mL IM 6+ MO 2019-12-04 00:00:00 Completed [facility] TDAP 2019-12-04 00:00:00 Completed [facility] Influenza Virus Vaccine Quad .5 mL IM 6+ MO 2019-12-04 00:00:00 Completed [facility] TDAP 2019-12-04 00:00:00 Completed [facility] Influenza Virus Vaccine Quad .5 mL IM 6+ MO 2019-12-04 00:00:00 Completed [facility] TDAP 2019-12-04 00:00:00 Completed [facility] Influenza Virus Vaccine Quad .5 mL IM 6+ MO 2019-12-04 00:00:00 Completed [facility] TDAP 2019-12-04 00:00:00 Completed [facility] Influenza Virus Vaccine Quad .5 mL IM 6+ MO 2019-12-04 00:00:00 Completed [facility] TDAP 2019-12-04 00:00:00 Completed [facility] Influenza Virus Vaccine Quad .5 mL IM 6+ MO 2019-12-04 00:00:00 Completed [facility] TDAP 2019-12-04 00:00:00 Completed [facility] Influenza Virus Vaccine Quad .5 mL IM 6+ MO 2019-12-04 00:00:00 Completed [facility] TDAP 2019-12-04 00:00:00 Completed [facility] Influenza Virus Vaccine Quad .5 mL IM 6+ MO 2019-12-04 00:00:00 Completed [facility] TDAP 2019-12-04 00:00:00 Completed [facility] Influenza Virus Vaccine Quad .5 mL IM 6+ MO 2019-12-04 00:00:00 Completed [facility] TDAP 2019-12-04 00:00:00 Completed [facility] Influenza Virus Vaccine Quad .5 mL IM 6+ MO 2019-12-04 00:00:00 Completed [facility] TDAP 2019-12-04 00:00:00 Completed [facility] Influenza Virus Vaccine Quad .5 mL IM 6+ MO 2019-12-04 00:00:00 Completed [facility] TDAP 2019-12-04 00:00:00 Completed [facility] Influenza Virus Vaccine Quad .5 mL IM 6+ MO 2019-12-04 00:00:00 Completed [facility] TDAP 2019-12-04 00:00:00 Completed [facility] Influenza Virus Vaccine Quad .5 mL IM 6+ MO 2019-12-04 00:00:00 Completed [facility] TDAP 2019-12-04 00:00:00 Completed [facility] Influenza Virus Vaccine Quad .5 mL IM 6+ MO 2019-12-04 00:00:00 Completed [facility] TDAP 2019-12-04 00:00:00 Completed [facility] Influenza Virus Vaccine Quad .5 mL IM 6+ MO (FLUZONE/FLULAVAL/FL UARIX) 2019-12-04 00:00:00 Completed TDAP 2019-12-04 00:00:00 Completed Influenza Virus Vaccine Quad .5 mL IM 6+ MO 2019-12-04 00:00:00 Completed [facility] TDAP 2019-12-04 00:00:00 Completed [facility] Influenza Virus Vaccine Quad .5 mL IM 6+ MO 2019-12-04 00:00:00 Completed [facility] TDAP 2019-12-04 00:00:00 Completed [facility] Influenza Virus Vaccine Quad .5 mL IM 6+ MO 2019-12-04 00:00:00 Completed [facility] TDAP 2019-12-04 00:00:00 Completed [facility] Influenza Virus Vaccine Quad .5 mL IM 6+ MO 2019-12-04 00:00:00 Completed [facility] TDAP 2019-12-04 00:00:00 Completed [facility] Influenza Virus Vaccine Quad .5 mL IM 6+ MO 2019-12-04 00:00:00 Completed [facility] TDAP 2019-12-04 00:00:00 Completed [facility] Influenza Virus Vaccine Quad .5 mL IM 6+ MO 2019-12-04 00:00:00 Completed [facility] TDAP 2019-12-04 00:00:00 Completed [facility] Influenza Virus Vaccine Quad .5 mL IM 6+ MO 2019-12-04 00:00:00 Completed [facility] TDAP 2019-12-04 00:00:00 Completed [facility] Influenza Virus Vaccine Quad .5 mL IM 6+ MO 2019-12-04 00:00:00 Completed [facility] TDAP 2019-12-04 00:00:00 Completed [facility] Influenza Virus Vaccine Quad .5 mL IM 6+ MO 2019-12-04 00:00:00 Completed [facility] TDAP 2019-12-04 00:00:00 Completed [facility] Influenza Virus Vaccine Quad .5 mL IM 6+ MO 2019-12-04 00:00:00 Completed [facility] TDAP 2019-12-04 00:00:00 Completed [facility] Influenza Virus Vaccine Quad .5 mL IM 6+ MO 2019-12-04 00:00:00 Completed [facility] TDAP 2019-12-04 00:00:00 Completed [facility] Influenza Virus Vaccine Quad .5 mL IM 6+ MO 2019-12-04 00:00:00 Completed [facility] TDAP 2019-12-04 00:00:00 Completed [facility] Influenza Virus Vaccine Quad .5 mL IM 6+ MO 2019-12-04 00:00:00 Completed [facility] TDAP 2019-12-04 00:00:00 Completed [facility] Influenza Virus Vaccine Quad .5 mL IM 6+ MO 2019-12-04 00:00:00 Completed [facility] TDAP 2019-12-04 00:00:00 Completed [facility] Influenza Virus Vaccine Quad .5 mL IM 6+ MO 2019-12-04 00:00:00 Completed [facility] TDAP 2019-12-04 00:00:00 Completed [facility] Influenza Virus Vaccine Quad .5 mL IM 6+ MO 2019-12-04 00:00:00 Completed [facility] TDAP 2019-12-04 00:00:00 Completed [facility] Influenza Virus Vaccine Quad .5 mL IM 6+ MO 2019-12-04 00:00:00 Completed [facility] TDAP 2019-12-04 00:00:00 Completed [facility] Influenza Virus Vaccine Quad .5 mL IM 6+ MO 2019-12-04 00:00:00 Completed [facility] TDAP 2019-12-04 00:00:00 Completed [facility] Influenza Virus Vaccine Quad .5 mL IM 6+ MO 2019-12-04 00:00:00 Completed [facility] TDAP 2019-12-04 00:00:00 Completed [facility] Influenza Virus Vaccine Quad .5 mL IM 6+ MO 2019-12-04 00:00:00 Completed [facility] TDAP 2019-12-04 00:00:00 Completed [facility] Influenza Virus Vaccine Quad .5 mL IM 6+ MO 2019-12-04 00:00:00 Completed [facility] TDAP 2019-12-04 00:00:00 Completed [facility] Influenza Virus Vaccine Quad .5 mL IM 6+ MO 2019-12-04 00:00:00 Completed [facility] TDAP 2019-12-04 00:00:00 Completed [facility] Influenza Virus Vaccine Quad .5 mL IM 6+ MO 2019-12-04 00:00:00 Completed [facility] TDAP 2019-12-04 00:00:00 Completed [facility] Influenza Virus Vaccine Quad .5 mL IM 6+ MO 2019-12-04 00:00:00 Completed [facility] TDAP 2019-12-04 00:00:00 Completed [facility] Influenza Virus Vaccine Quad .5 mL IM 6+ MO 2019-12-04 00:00:00 Completed [facility] TDAP 2019-12-04 00:00:00 Completed [facility] Influenza Virus Vaccine Quad .5 mL IM 6+ MO 2019-12-04 00:00:00 Completed [facility] TDAP 2019-12-04 00:00:00 Completed [facility] Influenza Virus Vaccine Quad .5 mL IM 6+ MO 2019-12-04 00:00:00 Completed [facility] TDAP 2019-12-04 00:00:00 Completed [facility] Influenza Virus Vaccine Quad .5 mL IM 6+ MO 2019-12-04 00:00:00 Completed [facility] TDAP 2019-12-04 00:00:00 Completed [facility] Influenza Virus Vaccine Quad .5 mL IM 6+ MO 2019-12-04 00:00:00 Completed [facility] TDAP 2019-12-04 00:00:00 Completed [facility] Influenza Virus Vaccine Quad .5 mL IM 6+ MO 2019-12-04 00:00:00 Completed [facility] TDAP 2019-12-04 00:00:00 Completed [facility] Influenza Virus Vaccine Quad .5 mL IM 6+ MO 2019-12-04 00:00:00 Completed [facility] TDAP 2019-12-04 00:00:00 Completed [facility] Influenza Virus Vaccine Quad .5 mL IM 6+ MO 2019-12-04 00:00:00 Completed [facility] TDAP 2019-12-04 00:00:00 Completed [facility] Influenza Virus Vaccine Quad .5 mL IM 6+ MO 2019-12-04 00:00:00 Completed [facility] TDAP 2019-12-04 00:00:00 Completed [facility] Influenza Virus Vaccine Quad .5 mL IM 6+ MO 2019-12-04 00:00:00 Completed [facility] TDAP 2019-12-04 00:00:00 Completed [facility] Influenza Virus Vaccine Quad .5 mL IM 6+ MO 2019-12-04 00:00:00 Completed [facility] TDAP 2019-12-04 00:00:00 Completed [facility] Influenza Virus Vaccine Quad .5 mL IM 6+ MO 2019-12-04 00:00:00 Completed [facility] Influenza Virus Vaccine Quad .5 mL IM 6+ MO 2019-12-04 00:00:00 Completed [facility] TDAP 2019-12-04 00:00:00 Completed [facility] TDAP 2019-12-04 00:00:00 Completed [facility] Influenza Virus Vaccine Quad .5 mL IM 6+ MO 2019-12-04 00:00:00 Completed [facility] TDAP 2019-12-04 00:00:00 Completed [facility] Influenza Virus Vaccine Quad .5 mL IM 6+ MO 2019-12-04 00:00:00 Completed [facility] TDAP 2019-12-04 00:00:00 Completed [facility] Vital Signs Vital Name Observation Time Observation Value Shelli cervantes Systolic blood pressure 2024-06-13 18:42:00 120 mm[Hg] [facility] Diastolic blood pressure 2024-06-13 18:42:00 80 mm[Hg] [facility] Heart rate 2024-06-13 18:42:00 83 /min [facility] Body temperature 2024-06-13 18:42:00 36.94 Am[facility] Respiratory rate 2024-06-13 18:42:00 14 /min [facility] Body height 2024-06-13 18:42:00 162.6 cm [facility] Body weight 2024-06-13 18:42:00 74.39 kg [facility] BMI 2024-06-13 18:42:00 28.15 kg/m2 [facility] Oxygen saturation in Arterial blood by Pulse oximetry 2024-06-13 18:42:00 99 /min [facility] Systolic blood pressure 2024-05-08 20:49:00 127 mm[Hg] [facility] Diastolic blood pressure 2024-05-08 20:49:00 89 mm[Hg] [facility] Heart rate 2024-05-08 20:49:00 98 /min [facility] Body temperature 2024-05-08 20:49:00 36.67 Amelia [facility] Respiratory rate 2024-05-08 20:49:00 16 /min [facility] Body height 2024-05-08 20:49:00 162.6 cm [facility] Body weight 2024-05-08 20:49:00 68.04 kg [facility] BMI 2024-05-08 20:49:00 25.75 kg/m2 [facility] Oxygen saturation in Arterial blood by Pulse oximetry 2024-05-08 20:49:00 98 /min [facility] Body temperature 2023-07-11 20:08:00 38.17 Am[facility] Systolic blood pressure 2023-07-11 20:00:00 110 mm[Hg] [facility] Diastolic blood pressure 2023-07-11 20:00:00 64 mm[Hg] [facility] Heart rate 2023-07-11 20:00:00 112 /min [facility] Respiratory rate 2023-07-11 20:00:00 22 /min [facility] Oxygen saturation in Arterial blood by Pulse oximetry 2023-07-11 20:00:00 99 /min [facility] Body height 2023-07-11 18:44:00 162.6 cm [facility] Body weight 2023-07-11 18:44:00 58.968 kg [facility] BMI 2023-07-11 18:44:00 22.31 kg/m2 [facility] Systolic blood pressure 2022-11-14 16:22:00 118 mm[Hg] [facility] Diastolic blood pressure 2022-11-14 16:22:00 86 mm[Hg] [facility] Heart rate 2022-11-14 16:22:00 84 /min [facility] Body temperature 2022-11-14 16:22:00 36.5 Amelia [facility] Respiratory rate 2022-11-14 16:22:00 17 /min [facility] Body weight 2022-11-14 16:22:00 57.652 kg [facility] BMI 2022-11-14 16:22:00 21.82 kg/m2 [facility] Oxygen saturation in Arterial blood by Pulse oximetry 2022-11-14 16:22:00 94 /min [facility] Systolic blood pressure 2022-07-08 21:36:00 143 mm[Hg] [facility] Diastolic blood pressure 2022-07-08 21:36:00 95 mm[Hg] [facility] Heart rate 2022-07-08 21:36:00 100 /min [facility] Body temperature 2022-07-08 21:36:00 36.89 Am[facility] Respiratory rate 2022-07-08 21:36:00 18 /min [facility] Body weight 2022-07-08 21:36:00 58.06 kg [facility] BMI 2022-07-08 21:36:00 21.97 kg/m2 [facility] Oxygen saturation in Arterial blood by Pulse oximetry 2022-07-08 21:36:00 100 /min [facility] Systolic blood pressure 2022-07-05 21:04:00 118 mm[Hg] [facility] Diastolic blood pressure 2022-07-05 21:04:00 76 mm[Hg] [facility] Heart rate 2022-07-05 21:04:00 83 /min [facility] Body temperature 2022-07-05 21:04:00 36.61 Amelia [facility] Respiratory rate 2022-07-05 21:04:00 18 /min [facility] Body height 2022-07-05 21:04:00 162.6 cm [facility] Body weight 2022-07-05 21:04:00 58.599 kg [facility] BMI 2022-07-05 21:04:00 22.17 kg/m2 [facility] Oxygen saturation in Arterial blood by Pulse oximetry 2022-07-05 21:04:00 98 /min [facility] Systolic blood pressure 2022-06-29 14:35:00 117 mm[Hg] [facility] Diastolic blood pressure 2022-06-29 14:35:00 77 mm[Hg] [facility] Heart rate 2022-06-29 14:35:00 92 /min [facility] Body temperature 2022-06-29 14:35:00 36.61 Am[facility] Respiratory rate 2022-06-29 14:35:00 17 /min [facility] Body weight 2022-06-29 14:35:00 58.145 kg [facility] BMI 2022-06-29 14:35:00 22.00 kg/m2 [facility] Oxygen saturation in Arterial blood by Pulse oximetry 2022-06-29 14:35:00 100 /min [facility] Systolic blood pressure 2022-06-09 14:30:00 110 mm[Hg] [facility] Diastolic blood pressure 2022-06-09 14:30:00 78 mm[Hg] [facility] Heart rate 2022-06-09 14:30:00 77 /min [facility] Body temperature 2022-06-09 14:30:00 36.78 Amelia [facility] Respiratory rate 2022-06-09 14:30:00 16 /min [facility] Body height 2022-06-09 14:30:00 162.6 cm [facility] Body weight 2022-06-09 14:30:00 58.712 kg [facility] BMI 2022-06-09 14:30:00 22.22 kg/m2 [facility] Oxygen saturation in Arterial blood by Pulse oximetry 2022-06-09 14:30:00 97 /min [facility] Systolic blood pressure 2022-03-25 19:16:00 116 mm[Hg] [facility] Diastolic blood pressure 2022-03-25 19:16:00 74 mm[Hg] [facility] Heart rate 2022-03-25 19:16:00 77 /min [facility] Body temperature 2022-03-25 19:16:00 36.83 Amelia [facility] Respiratory rate 2022-03-25 19:16:00 18 /min [facility] Body height 2022-03-25 19:16:00 162.6 cm [facility] Body weight 2022-03-25 19:16:00 57.607 kg [facility] BMI 2022-03-25 19:16:00 21.80 kg/m2 [facility] Systolic blood pressure 2022-03-11 20:16:00 116 mm[Hg] [facility] Diastolic blood pressure 2022-03-11 20:16:00 79 mm[Hg] [facility] Heart rate 2022-03-11 20:16:00 77 /min [facility] Body temperature 2022-03-11 20:16:00 36.72 Amelia [facility] Respiratory rate 2022-03-11 20:16:00 17 /min [facility] Body height 2022-03-11 20:16:00 162.6 [facility] Body weight 2022-03-11 20:16:00 57.244 kg [facility] BMI 2022-03-11 20:16:00 21.66 kg/m2 [facility] Systolic blood pressure 2022-03-10 21:42:00 126 mm[Hg] [facility] Diastolic blood pressure 2022-03-10 21:42:00 89 mm[Hg] [facility] Heart rate 2022-03-10 21:42:00 91 /min [facility] Body temperature 2022-03-10 21:42:00 36.78 Am[facility] Respiratory rate 2022-03-10 21:42:00 17 /min [facility] Body height 2022-03-10 21:42:00 162.6 cm [facility] Body weight 2022-03-10 21:42:00 56.7 kg [facility] BMI 2022-03-10 21:42:00 21.46 kg/m2 [facility] Oxygen saturation in Arterial blood by Pulse oximetry 2022-03-10 21:42:00 100 /min [facility] Systolic blood pressure 2022-03-04 15:58:00 113 mm[Hg] [facility] Diastolic blood pressure 2022-03-04 15:58:00 70 mm[Hg] [facility] Heart rate 2022-03-04 15:58:00 80 /min [facility] Body temperature 2022-03-04 15:58:00 36.94 Am[facility] Respiratory rate 2022-03-04 15:58:00 18 /min [facility] Body height 2022-03-04 15:58:00 162.6 [facility] Body weight 2022-03-04 15:58:00 56.7 kg [facility] BMI 2022-03-04 15:58:00 21.46 kg/m2 [facility] Systolic blood pressure 2022-02-25 19:44:00 121 mm[Hg] [facility] Diastolic blood pressure 2022-02-25 19:44:00 72 mm[Hg] [facility] Heart rate 2022-02-25 19:44:00 84 /min [facility] Body temperature 2022-02-25 19:44:00 36.72 Am[facility] Body height 2022-02-25 19:44:00 162.6 cm [facility] Body weight 2022-02-25 19:44:00 56.518 kg [facility] BMI 2022-02-25 19:44:00 21.39 kg/m2 [facility] Systolic blood pressure 2022-02-09 17:38:00 126 mm[Hg] [facility] Diastolic blood pressure 2022-02-09 17:38:00 74 mm[Hg] [facility] Heart rate 2022-02-09 17:38:00 73 /min [facility] Body temperature 2022-02-09 17:38:00 36.61 Am[facility] Body height 2022-02-09 17:38:00 162.6 cm [facility] Body weight 2022-02-09 17:38:00 56.337 kg [facility] BMI 2022-02-09 17:38:00 21.32 kg/m2 [facility] Systolic blood pressure 2022-01-26 17:24:00 129 mm[Hg] [facility] Diastolic blood pressure 2022-01-26 17:24:00 84 mm[Hg] [facility] Heart rate 2022-01-26 17:24:00 96 /min [facility] Body temperature 2022-01-26 17:24:00 36.83 Amelia [facility] Respiratory rate 2022-01-26 17:24:00 17 /min [facility] Body height 2022-01-26 17:24:00 162.6 cm Univ [facility] Body weight 2022-01-26 17:24:00 55.792 kg Univ [facility] BMI 2022-01-26 17:24:00 21.11 kg/m2 [facility] Systolic blood pressure 2021 19:00:00 125 mm[Hg] [facility] Diastolic blood pressure 2021 19:00:00 83 mm[Hg] [facility] Heart rate 2021 19:00:00 71 /min [facility] Respiratory rate 2021 19:00:00 18 /min [facility] Oxygen saturation in Arterial blood by Pulse oximetry 2021 19:00:00 100 /min [facility] Body temperature 2021 16:19:00 37 Amelia [facility] Body weight 2021 16:19:00 56.7 kg [facility] BMI 2021 16:19:00 21.46 kg/m2 [facility] Systolic blood pressure 2021-04-29 15:48:00 121 mm[Hg] [facility] Diastolic blood pressure 2021-04-29 15:48:00 72 mm[Hg] [facility] Heart rate 2021-04-29 15:48:00 118 /min [facility] Body temperature 2021-04-29 15:48:00 38.11 Amelia [facility] Respiratory rate 2021-04-29 15:48:00 18 /min [facility] Body height 2021-04-29 15:48:00 162.6 cm [facility] Body weight 2021-04-29 15:48:00 56.7 kg Univ [facility] BMI 2021-04-29 15:48:00 21.46 kg/m2 [facility] Oxygen saturation in Arterial blood by Pulse oximetry 2021-04-29 15:48:00 98 /min [facility] Oxygen saturation in Arterial blood by Pulse oximetry 2021-01-31 16:16:00 99 /min [facility] Systolic blood pressure 2021-01-31 15:48:00 121 mm[Hg] [facility] Diastolic blood pressure 2021-01-31 15:48:00 72 mm[Hg] [facility] Heart rate 2021-01-31 15:48:00 91 /min [facility] Body temperature 2021-01-31 15:48:00 36.67 Amelia [facility] Respiratory rate 2021-01-31 15:48:00 18 /min [facility] Body weight 2021-01-31 15:48:00 72.576 kg [facility] BMI 2021-01-31 15:48:00 27.46 kg/m2 [facility] Systolic blood pressure 2020-05-13 14:10:00 115 mm[Hg] [facility] Diastolic blood pressure 2020-05-13 14:10:00 58 mm[Hg] [facility] Heart rate 2020-05-13 14:10:00 81 /min [facility] Body temperature 2020-05-13 14:10:00 36.94 Amelia [facility] Respiratory rate 2020-05-13 14:10:00 20 /min [facility] Oxygen saturation in Arterial blood by Pulse oximetry 2020-05-13 14:10:00 100 /min [facility] Body height 2020-05-12 17:32:00 162.6 cm [facility] Body weight 2020-05-12 17:32:00 72.576 kg [facility] BMI 2020-05-12 17:32:00 27.46 kg/m2 [facility] Systolic blood pressure 2020-05-01 18:40:00 123 mm[Hg] [facility] Diastolic blood pressure 2020-05-01 18:40:00 75 mm[Hg] [facility] Heart rate 2020-05-01 18:40:00 81 /min [facility] Body temperature 2020-05-01 18:40:00 36.78 Amelia [facility] Respiratory rate 2020-05-01 18:40:00 18 /min [facility] Body height 2020-05-01 18:40:00 162.6 cm [facility] Body weight 2020-05-01 18:40:00 72.576 kg [facility] BMI 2020-05-01 18:40:00 27.46 kg/m2 [facility] Systolic blood pressure 2020-04-28 13:55:00 108 mm[Hg] [facility] Diastolic blood pressure 2020-04-28 13:55:00 72 mm[Hg] [facility] Heart rate 2020-04-28 13:55:00 82 /min [facility] Body temperature 2020-04-28 13:55:00 36.83 Ameila [facility] Respiratory rate 2020-04-28 13:55:00 18 /min [facility] Body height 2020-04-28 13:55:00 162.6 cm [facility] Body weight 2020-04-28 13:55:00 73.029 kg [facility] BMI 2020-04-28 13:55:00 27.64 kg/m2 [facility] Systolic blood pressure 2020-02-26 14:45:00 126 mm[Hg] [facility] Diastolic blood pressure 2020-02-26 14:45:00 79 mm[Hg] [facility] Heart rate 2020-02-26 14:45:00 83 /min [facility] Body temperature 2020-02-26 14:40:00 36.72 Amelia [facility] Respiratory rate 2020-02-26 14:40:00 18 /min [facility] Oxygen saturation in Arterial blood by Pulse oximetry 2020-02-25 22:30:00 100 /min [facility] Body height 2020-02-25 10:00:00 162.6 cm [facility] Body weight 2020-02-25 10:00:00 83.825 kg [facility] BMI 2020-02-25 10:00:00 31.70 kg/m2 [facility] Systolic blood pressure 2020-02-19 19:42:00 124 mm[Hg] [facility] Diastolic blood pressure 2020-02-19 19:42:00 85 mm[Hg] [facility] Heart rate 2020-02-19 19:42:00 86 /min [facility] Body temperature 2020-02-19 19:42:00 36.67 Amelia [facility] Respiratory rate 2020-02-19 19:42:00 18 /min [facility] Body height 2020-02-19 19:42:00 162.6 cm [facility] Body weight 2020-02-19 19:42:00 82.736 kg [facility] BMI 2020-02-19 19:42:00 31.31 kg/m2 [facility] Systolic blood pressure 2020-02-12 18:13:00 128 mm[Hg] [facility] Diastolic blood pressure 2020-02-12 18:13:00 81 mm[Hg] [facility] Heart rate 2020-02-12 18:13:00 90 /min [facility] Body temperature 2020-02-12 18:13:00 36.67 Amelia [facility] Respiratory rate 2020-02-12 18:13:00 16 /min [facility] Body height 2020-02-12 18:13:00 162.6 cm [facility] Body weight 2020-02-12 18:13:00 82.373 kg [facility] BMI 2020-02-12 18:13:00 31.17 kg/m2 [facility] Systolic blood pressure 2020-01-28 21:12:00 132 mm[Hg] [facility] Diastolic blood pressure 2020-01-28 21:12:00 79 mm[Hg] [facility] Heart rate 2020-01-28 21:12:00 96 /min [facility] Body temperature 2020-01-28 21:12:00 36.78 Amelia [facility] Respiratory rate 2020-01-28 21:12:00 16 /min [facility] Body height 2020-01-28 21:12:00 162.6 cm [facility] Body weight 2020-01-28 21:12:00 82.192 kg [facility] BMI 2020-01-28 21:12:00 31.10 kg/m2 [facility] Systolic blood pressure 2020-01-07 15:14:00 113 mm[Hg] [facility] Diastolic blood pressure 2020-01-07 15:14:00 68 mm[Hg] [facility] Heart rate 2020-01-07 15:14:00 99 /min [facility] Body temperature 2020-01-07 15:14:00 36.78 Amelia [facility] Respiratory rate 2020-01-07 15:14:00 18 /min [facility] Body height 2020-01-07 15:14:00 162.6 cm [facility] Body weight 2020-01-07 15:14:00 78.019 kg [facility] BMI 2020-01-07 15:14:00 29.52 kg/m2 [facility] Systolic blood pressure 2019-12-24 15:09:00 113 mm[Hg] [facility] Diastolic blood pressure 2019-12-24 15:09:00 72 mm[Hg] [facility] Heart rate 2019-12-24 15:09:00 96 /min [facility] Body temperature 2019-12-24 15:09:00 36.72 Amelia [facility] Respiratory rate 2019-12-24 15:09:00 18 /min [facility] Body height 2019-12-24 15:09:00 162.6 cm [facility] Body weight 2019-12-24 15:09:00 76.204 kg [facility] BMI 2019-12-24 15:09:00 28.84 kg/m2 [facility] Systolic blood pressure 2019-12-14 15:00:00 126 mm[Hg] [facility] Diastolic blood pressure 2019-12-14 15:00:00 68 mm[Hg] [facility] Heart rate 2019-12-14 15:00:00 82 /min [facility] Oxygen saturation in Arterial blood by Pulse oximetry 2019-12-14 15:00:00 100 /min [facility] Body temperature 2019-12-14 14:33:00 36.78 Amelia [facility] Respiratory rate 2019-12-14 14:33:00 16 /min [facility] Body height 2019-12-14 14:33:00 162.6 cm [facility] Body weight 2019-12-14 14:33:00 75.297 kg [facility] BMI 2019-12-14 14:33:00 28.49 kg/m2 [facility] Systolic blood pressure 2019-12-04 13:53:00 123 mm[Hg] [facility] Diastolic blood pressure 2019-12-04 13:53:00 79 mm[Hg] [facility] Heart rate 2019-12-04 13:53:00 92 /min [facility] Body temperature 2019-12-04 13:53:00 36.72 Amelia [facility] Respiratory rate 2019-12-04 13:53:00 16 /min [facility] Body height 2019-12-04 13:53:00 162.6 cm [facility] Body weight 2019-12-04 13:53:00 73.936 kg [facility] BMI 2019-12-04 13:53:00 27.98 kg/m2 [facility] Systolic blood pressure 2019-10-01 16:55:00 115 mm[Hg] [facility] Diastolic blood pressure 2019-10-01 16:55:00 68 mm[Hg] [facility] Heart rate 2019-10-01 16:55:00 84 /min [facility] Body temperature 2019-10-01 16:55:00 36.72 Amelia [facility] Respiratory rate 2019-10-01 16:55:00 18 /min [facility] Body height 2019-10-01 16:55:00 162.6 cm [facility] Body weight 2019-10-01 16:55:00 64.864 kg [facility] BMI 2019-10-01 16:55:00 24.55 kg/m2 [facility] Systolic blood pressure 2019-09-24 14:24:00 119 mm[Hg] [facility] Diastolic blood pressure 2019-09-24 14:24:00 68 mm[Hg] [facility] Heart rate 2019-09-24 14:24:00 95 /[facility] 2019-09-24 14:24:00 36.78 Amelia [facility] Respiratory rate 2019-09-24 14:24:00 18 /min [facility] Body height 2019-09-24 14:24:00 [facility] Body weight 2019-09-24 14:24:00 63.504 kg [facility] BMI 2019-09-24 14:24:00 24.03 kg/m2 [facility] Systolic blood pressure 2019-08-06 14:06:00 114 mm[Hg] [facility] Diastolic blood pressure 2019-08-06 14:06:00 71 mm[Hg] [facility] Heart rate 2019-08-06 14:06:00 85 /min [facility] Body temperature 2019-08-06 14:06:00 36.94 Amelia [facility] Respiratory rate 2019-08-06 14:06:00 18 /min [facility] Body height 2019-08-06 14:06:00 162.6 cm [facility] Body weight 2019-08-06 14:06:00 60.328 kg [facility] BMI 2019-08-06 14:06:00 22.83 kg/m2 [facility] Systolic blood pressure 2019-07-04 00:15:00 127 mm[Hg] [facility] Diastolic blood pressure 2019-07-04 00:15:00 81 mm[Hg] [facility] Heart rate 2019-07-04 00:15:00 99 /min [facility] Body temperature 2019-07-04 00:15:00 37.28 Amelia [facility] Respiratory rate 2019-07-04 00:15:00 18 /min [facility] Body height 2019-07-04 00:15:00 162.6 [facility] Body weight 2019-07-04 00:15:00 61.236 kg [facility] BMI 2019-07-04 00:15:00 23.17 kg/m2 [facility] Oxygen saturation in Arterial blood by Pulse oximetry 2019-07-04 00:15:00 100 /min [facility] Body height 2019-07-02 19:39:00 162.6 cm [facility] Body weight 2019-07-02 19:39:00 61.236 kg [facility] BMI 2019-07-02 19:39:00 23.17 kg/m2 [facility] Systolic blood pressure 2018-10-29 17:57:00 124 mm[Hg] [facility] Diastolic blood pressure 2018-10-29 17:57:00 66 mm[Hg] [facility] Heart rate 2018-10-29 17:57:00 84 /min [facility] Body temperature 2018-10-29 17:57:00 36.89 Amelia [facility] Respiratory rate 2018-10-29 17:57:00 18 /min [facility] Oxygen saturation in Arterial blood by Pulse oximetry 2018-10-29 17:57:00 99 /min [facility] Body weight 2018-10-29 17:55:00 63.504 kg [facility] Procedures Procedure Date / Time Performed Performing Clinician Source POCT MOLECULAR STREP 2024-05-08 20:53:00 Deyanira Wright [facility] XR CHEST 1 VW 2023-07-11 19:25:00 Shayna Flores [facility] COMP. METABOLIC PANEL ([id number]) 2023-07-11 19:13:00 Shayna Flores [facility] CBC WITH DIFF 2023-07-11 19:13:00 Shayna Flores [facility] URINALYSIS 2023-07-11 19:13:00 Shayna Flores [facility] RAPID STREP SCREEN FOR GROUP A 2023-07-11 19:13:00 Shayna Flores [facility] POCT TEST 2023-07-11 19:13:00 Elder Flores [facility] COVID-19 (ID NOW RAPID TESTING) 2023-07-11 19:13:00 Shayna Flores [facility] POCT MOLECULAR FLU 2022-11-14 16:39:00 Unknown, Attend ing [facility] POCT SARS-COV-2 ANTIGEN (BINAX NOW) 2022-11-14 16:37:00 Yfn Pandya [facility] POCT MOLECULAR STREP 2022-11-14 16:28:00 Unknown, Attbinh cornell [facility] NOTICE OF PRIVACY PRACTICES 2022-07-08 21:29:26 Doctor Unassigned, [place] [facility] CONSENT/REFUSAL FOR DIAGNOSIS AND TREATMENT 2022-07-08 21:27:46 Doctor Unassigned, [place] [facility] POCT MOLECULAR STREP 2022-07-05 21:09:00 Unknown, Attbinh cornell [facility] POCT MOLECULAR STREP 2022-06-29 14:43:00 Unknown, Attbinh cornell [facility] POCT MOLECULAR STREP 2022-06-09 14:35:00 Unknown, Attbinh cornell [facility] PATIENT FINANCIAL POLICY 2022-06-09 14:15:59 Doctor Unassigned, [place] [facility] US PELVIS COMPLETE WITH TRANSVAGINAL 2022-03-12 19:50:00 Max Sherly [facility] ASSIGNMENT OF BENEFITS 2022-03-12 16:55:06 Docto r Unassigned, [place] [facility] POCT URINALYSIS W/O SPECIFIC GRAVITY 2022-03-11 21:29:00 Sherly Santana [facility] POCT MOLECULAR STREP 2022-03-10 21:54:00 Unknown, Attbinh cornell [facility] POCT URINALYSIS W/O SPECIFIC GRAVITY 2022-03-04 00:00:00 Max Sherly [facility] DISCLOSURE AND CONSENT MEDICAL & SURGICAL PROCEDURES - FEMALM 2022-02-25 06:01:00 Doctor Unassigned, [place] [facility] POCT TEST 2022-02-25 00:00:00 [place] Ponce [facility] POCT URINALYSIS W/O SPECIFIC GRAVITY 2022-02-25 00:00:00 Rosario [place] Estrada [facility] US UPPER LEG LEFT 2022-02-02 20:07:27 Sherly Santana [facility] FLU VACC (), 6 MO-64 YRS, .5ML, IM, QUAD (FLUCELVAX) 2022-01-26 17:29:16 Sherly Santana [facility] CT ABDOMEN PELVIS W CONTRAST 2021 17:33:17 Yfn Pandya [facility] US OVARY TORSION 2021 17:22:42 [facility] 2021 16:39:00 Yfn Pandya [facility] URINALYSIS 2021 16:37:00 Yfn Pandya [facility] LIPASE 2021 16:30:00 Yfn Pandya [facility] COMP. METABOLIC PANEL ([id number]) 2021 [facility]:30[facility]00 [facility] CBC WITH DIFF 2021 16:30:00 Yfn Pandya [facility] CONSENT/REFUSAL FOR DIAGNOSIS AND TREATMENT 2021 16:16:02 Doctor Unassigned, [place] [facility] URINALYSIS 2021-04-29 16:06:00 Kenneth Meade [facility] RAPID INFLUENZA A/B 2021-04-29 15:53:00 Adriane Meade [facility] COVID-19 (ID NOW RAPID TESTING) 2021-04-29 15:53:00 Kenneth Meade [facility] CONSENT/REFUSAL FOR DIAGNOSIS AND TREATMENT 2021-04-29 15:43:26 Doctor Unassigned, [place] [facility] NOTICE OF PRIVACY PRACTICES 2021-04-29 15:42:48 Doctor Unassigned, [place] [facility] VACCINATIONS - CONSENTS, ELIGIBILITY, HISTORY 2020-10-11 05:01:00 Doctor Unassigned, [place] [facility] VACCINATIONS - CONSENTS, ELIGIBILITY, HISTORY 2020-09-20 05:01:00 Doctor Unassigned, [place] [facility] INTUBATION 2020-05-13 12:52:03 Denisse Lemus [facility] ASSIGNMENT OF BENEFITS 2020-05-12 18:31:54 Docto r Unassigned, [place] [facility] DISCLOSURE AND CONSENT, MEDICAL AND SURGICAL PROCEDURES 2020-05-01 05:01:00 Doctor Unassigned, [place] [facility] DSU PRE-OP 2020-05-01 05:01:00 Doctor Unass igned, [place] [facility] POCT TEST 2020-05-01 00:00:00 Rosario [facility] VARICELLA (VARIVAX)(CHICKEN POX) VACCINE 2020-04-28 14:25:02 Sherly Santana [facility] SCANNED LAB RESULTS 2020-03-26 06:01:00 Doctor Amos eisenberg, [place] [facility] CBC WITH DIFF 2020-02-26 08:07:00 [facility] VENOUS CORD GAS 2020-02-25 13:24:00 Rosario [facility] HB ABO GROUPING 2020-02-25 10:15:00 [facility] RHO (D) IMMUNE GLOBULIN 2020-02-25 10:15:00 Rosario [facility] CBC WITH DIFF 2020-02-25 10:13:00 Ponce [facility] HEPATITIS B SURFACE ANTIGEN 2020-02-25 10:13:00 Rosario [facility] ADC OR RONNIE ONLY - RPR 2020-02-25 10:13:00 Rosario [facility] HIV 1/2 AG-AB WITH REFLEX 2020-02-25 10:13:00 Rosario [facility] ASSIGNMENT OF BENEFITS 2020-02-19 20:20:46 Docto r Unassigned, [place] [facility] POCT URINALYSIS W/O SPECIFIC GRAVITY 2020-02-19 00:00:00 Sherly Santana [facility] POCT URINALYSIS W/O SPECIFIC GRAVITY 2020-02-12 18:16:00 Max Sherly [facility] DSU PRE-OP 2020-01-28 06:01:00 Doctor Unass igned, [place] [facility] POCT URINALYSIS W/O SPECIFIC GRAVITY 2020-01-28 00:00:00 [place] Ponce [facility] POCT URINALYSIS W/O SPECIFIC GRAVITY 2020-01-07 00:00:00 Sherly Santana [facility] STERILIZATION CONSENT FORM 2019-12-24 06:01:00 Doctor Unassigned, [place] [facility] POCT URINALYSIS W/O SPECIFIC GRAVITY 2019-12-24 00:00:00 [place] Ponce [facility] NOTICE OF PRIVACY PRACTICES 2019-12-14 14:01:52 Doctor Unassigned, [place] [facility] CONSENT/REFUSAL FOR DIAGNOSIS AND TREATMENT 2019-12-14 14:01:34 Doctor Unassigned, [place] [facility] L&D VISIT (NON-DELIVERED) 2019-12-14 05:01:00 Doctor Unassigned, [place] [facility] TDAP VACCINE, >11 YRS, IM 2019-12-04 13:57:06 [place] Ponce [facility] FLU VACC ([id number]), 6+ MONTHS, IM, QUAD 2019-12-04 13:57:06 [place] Ponce [facility] POCT URINALYSIS W/O SPECIFIC GRAVITY 2019-12-04 13:54:00 Sherly Santana [facility] POCT URINALYSIS W/O SPECIFIC GRAVITY 2019-10-01 00:00:00 Max Sherly [facility] DISCLOSURE AND CONSENT, MEDICAL AND SURGICAL PROCEDURES 2019-09-24 05:01:00 Doctor Unassigned, [place] [facility] CONSENT/REFUSAL FOR DIAGNOSIS AND TREATMENT 2019-08-23 16:30:16 Doctor Unassigned, [place] [facility] <14 WEEKS US LIMITED 2019-08-06 16:04:41 [place] Ponce [facility] LAB ONLY PAP SMEAR-LIQUID BASED 2019-08-06 14:27:00 Rosario [place] Estrada [facility] ADC / LCC - DRUG SCREEN TRIAGE 2019-08-06 14:27:00 Rosario [place] Estrada [facility] PAP SMEAR-LIQUID BASED-CP 2019-08-06 14:27:00 RosarioBoston [facility] GC & CHLAMYDIA AMPLIFIED ASSAY 2019-08-06 14:26:00 [place] Ponce [facility] ASSIGNMENT OF BENEFITS 2019-08-06 13:47:17 Docto r Unassigned, [place] [facility] US FIRST TRIMESTER LESS THAN 14 WEEKS WITH TRANSVAGINAL 2019-07-04 02:01:46 Helen Tai [facility] COMP. METABOLIC PANEL ([id number]) 2019-07-04 00:39:00 Helen Tai [facility] TOTAL BETA HCG ASSAY 2019-07-04 00:39:00 Helen Tai [facility] CBC WITH DIFFERENTIAL 2019-07-04 00:39:00 Helen Tai [facility] POCT TEST 2019-07-04 00:39:00 Helen Tai [facility] URINALYSIS 2019-07-04 00:23:00 Helen Tai [facility] CONSENT/REFUSAL FOR DIAGNOSIS AND TREATMENT 2019-07-04 00:08:56 Doctor Unassigned, [place] [facility] RAPID STREP SCREEN FOR GROUP A 2018-10-29 17:58:00 Kenneth Meade [facility] NOTICE OF PRIVACY PRACTICES 2018-10-29 17:48:12 Doctor Unassigned, [place] [facility] CONSENT/REFUSAL FOR DIAGNOSIS AND TREATMENT 2018-10-29 17:47:58 Doctor Unassigned, [place] [facility] CONSENT/REFUSAL FOR DIAGNOSIS AND TREATMENT 2018-10-29 17:47:56 Doctor Unassigned, [place] [facility] Encounters Start Date/Time End Date/Time Encounter Type Admission Type Attending Clinicians Care Facility Care Department Encounter ID Source 2020-12-14 07:16:05 Outpatient R BOSTON PONCE [facility] ACID BLOWER [id number] [facility] 2020-12-13 02:08:43 Outpatient X [facility] MARU [id number] [facility] 2020-12-13 02:01:22 Emergency [facility] [id number] [facility] 2020-12-12 05:47:04 Emergency [facility] [id number] [facility] 2024-07-06 10:40:00 2024-07-06 10:40:00 Outpatient R UNKNOWN, ATTENDING [facility] [id number] [facility] 2024-06-13 13:40:00 2024-06-13 14:00:00 Urgent Care Gisela Ninamariluamos Unknown, Attending [facility] 1..[id number] [facility] 2024-06-13 13:40:00 2024-06-13 13:58:02 Outpatient R MAICO [facility] [id number] [facility] 2024-05-08 15:40:00 2024-05-08 16:00:00 Urgent Care RenardsandraYfn Unknown, Attending Shonda Wright [facility] 1..[id number] [facility] 2024-05-08 15:40:00 2024-05-08 15:40:00 Outpatient R SHONDA WRIGHT [facility] [id number] [facility] 2023-07-11 13:43:00 2023-07-11 15:30:00 Emergency X SHAYNA FLORES [facility] [id number] [place] [facility] 13:43:00 2023-07-11 15:30:00 Emergency Shayna Flores [facility] 1..840.114 350.1.13.10 4.2.7.2.686 [id number] 084 [id number] [facility] 2023-02-16 00:00:00 2023-02-16 00:00:00 Outpatient R [facility]Y [facility] [id number] [facility] 2023-01-05 13:31:06 2023-01-05 23:59:00 Outpatient R RADIOLOGY [facility] [id number] [facility] 2023-01-05 13:31:06 2023-01-05 23:59:00 Hospital Encounter Radiology [facility] 1.0.114 350.1.13.10 4.2.7.2.686 [id number] [facility] 2022-11-14 11:00:00 2022-11-14 12:05:54 Urgent Care JemlavonneYfn flores Unknown, Attending [facility] 1..114 350.1.13.10 4.2.7.2.686 [id number] [facility] 2022-11-14 11:00:00 2022-11-14 11:00:00 Outpatient R YFN PANDYA [facility] [id number] [facility] 2022-07-08 16:37:00 2022-07-08 17:28:00 Emergency X ASHLY K [facility] ERT [id number] [facility] 2022-07-08 16:37:00 2022-07-08 17:28:00 Emergency Ashly K Ivnaa [facility] 1..114 350.1.13.10 4.2.7.2.686 [id number] [id number] [facility] 2022-07-07 00:00:00 2022-07-07 00:00:00 Sherly Rodgers [facility] MEDICAL OFFICE BUILDING 1.84.114 350.1.13.10 4.2.7.2.686 [id number] 370 [id number] [facility] 2022-07-05 15:40:00 2022-07-05 16:25:37 Outpatient R FLOYD NINA [facility] [id number] [facility] 2022-07-05 15:40:00 2022-07-05 16:25:37 Urgent Care Floyd Nina Unknown, Attending [facility] MEDICAL OFFICE BUILDING 1.840.114 350.1.13.10 4.2.7.2.686 [id number] [facility] 2022-06-29 09:20:00 2022-06-29 10:02:57 Outpatient R YFN PANDYA [facility] [id number] [facility] 2022-06-29 09:20:00 2022-06-29 10:02:57 Urgent Care Yfn Pandya Unknown, Attending [facility] MEDICAL OFFICE BUILDING 1.840.114 350.1.13.10 4.2.7.2.686 [id number] 370 [id number] [facility] 2022-06-22 11:00:00 2022-06-22 11:00:00 Outpatient R SHERLY SANTANA [facility] [id number] [facility] 2022-06-15 00:00:00 2022-06-15 00:00:00 [facility] MEDICAL OFFICE BUILDING 1.840.114 350.1.13.10 4.2.7.2.686 [id number] 370 [id number] [facility] 2022-06-09 10:15:00 2022-06-09 10:30:00 Washroom Cleaner Visit Lab, Devyn [facility]ana [facility] MEDICAL OFFICE BUILDING 1.840.114 350.1.13.10 4.2.7.2.686 [id number] [facility] 2022-06-09 09:20:00 2022-06-09 09:53:22 Outpatient R MAX SHERLY [facility] [id number] [facility] 2022-06-09 09:20:00 2022-06-09 09:53:22 Urgent Care Sherly Santana Unknown, Attending [facility] 1.2.840.114 350.1.13.10 4.2.7.2.686 [id number] [facility] 2022-06-09 00:00:00 2022-06-09 00:00:00 Orders Only Doctor Unassigned, [place] [facility] 1..840.114 350.1.13.10 4.2.7.2.686 [id number] [facility] 2022-04-07 00:00:00 2022-04-07 00:00:[address] [facility] BUILDING 1..840.114 350.1.13.10 4.2.7.2.686 [id number] [facility] 2022-03-31 11:00:00 2022-03-31 11:00:00 Outpatient SHERLY RODAS [facility] [id number] [facility] 2022-03-26 11:00:00 2022-03-26 13:03:27 Outpatient SHERLY RODAS [facility] [id number] [facility] 2022-03-26 11:00:00 2022-03-26 13:03:27 Ancillary Visit Shelia Joseph [facility] BUILDING 1..840.114 350.1.13.10 4.2.7.2.686 [id number] [facility] 2022-03-25 13:15:00 2022-03-25 13:59:22 Outpatient R SHERLY SANTANA [facility] [id number] [facility] 2022-03-25 13:15:00 2022-03-25 13:59:22 Office Visit Sherly Santana [facility] BUILDING 1.2.840.114 350.1.13.10 4.2.7.2.686 [id number] [facility] 2022-03-12 10:55:27 2022-03-12 23:59:00 [facility] [id number] [facility] 2022-03-12 10:55:27 2022-03-12 23:59:00 Hospital Encounter Sherly Santana [facility] 1.2.840.114 350.1.13.10 4.2.7.2.686 [id number] [facility] 2022-03-12 00:00:00 2022-03-12 00:00:00 Orders Only Doctor Unassigned, [place] [facility] 1.2.840.114 350.1.13.10 4.2.7.2.686 [id number] [facility] 2022-03-11 14:15:00 2022-03-11 14:42:16 Outpatient [facility] [id number] [facility] 2022-03-11 14:15:00 2022-03-11 14:42:16 [facility] 1.2.840.114 350.1.13.10 4.2.7.2.686 [id number] 134 [id number] [facility] 2022-03-10 15:20:00 2022-03-10 16:24:37 Outpatient R FLOYD NINA [facility] [id number] [facility] 2022-03-10 15:20:00 2022-03-10 16:24:37 Urgent Care Floyd Nina Unknown, Attending [facility] 1.2.840.114 350.1.13.10 4.2.7.2.686 [id number] 370 [id number] [facility] 2022-03-08 00:00:00 2022-03-08 00:00:00 Outpatient R SHERLY SANTANA [facility] [id number] [facility] 2022-03-05 00:00:00 2022-03-05 00:00:00 Case Management Sherly Santana [facility] 1..840.114 350.1.13.10 4.2.7.2.686 [id number] [facility] 2022-03-04 10:00:00 2022-03-04 11:18:47 Outpatient [facility] [id number] [facility] 2022-03-04 10:00:00 2022-03-04 11:18:47 Office Visit Max Sherly [facility] BUILDING 1.2.840.114 350.1.13.10 4.2.7.2.686 [id number] 134 [id number] [facility] 2022-03-03 00:00:00 2022-03-03 00:00:00 Patient Secure Daysi Espinosa [facility] BUILDING 1.2.840.114 350.1.13.10 4.2.7.2.686 [id number] 134 [id number] [facility] 2022-02-25 13:00:00 2022-02-25 14:13:31 Outpatient R BOSTON PONCE [facility] [id number] [facility] 2022-02-25 13:00:00 2022-02-25 14:13:31 Office Visit [place] Ponce [facility] BUILDING 1.2.840.114 350.1.13.10 4.2.7.2.686 [id number] 134 [id number] [facility] 2022-02-25 00:00:00 2022-02-25 00:00:00 Orders Only Doctor Unassigned, [place] [facility] 1.2.840.114 350.1.13.10 4.2.7.2.686 [id number] [facility] 2022-02-09 13:15:00 2022-02-09 13:30:00 Washroom Cleaner Visit 2, Adc Lab Sherly Santana [facility] 1.2.840.114 350.1.13.10 4.2.7.2.686 [id number] [facility] 2022-02-09 13:15:00 2022-02-09 12:58:48 Outpatient R MAX SHERLY [facility] [id number] [facility] 2022-02-09 11:30:00 2022-02-09 11:55:08 Office Visit MaxSherly [facility] 1.2.840.114 350.1.13.10 4.2.7.2.686 [id number] 134 [id number] [facility] 2022-02-02 12:51:42 2022-02-02 23:59:00 Outpatient R MAX SHERLY [facility] [id number] [facility] 2022-02-02 12:51:42 2022-02-02 23:59:00 Hospital Encounter Sherly Santana [facility] 1.2.840.114 350.1.13.10 4.2.7.2.686 [id number] [facility] 2022-02-01 00:00:00 2022-02-01 00:00:00 Case Management Max [facility] 1.2.840.114 350.1.13.10 4.2.7.2.686 [id number] [facility] 2022-02-01 00:00:00 2022-02-01 00:00:00 Telephone Sherly Santana [facility] 1.2.840.114 350.1.13.10 4.2.7.2.686 [id number] 134 [id number] [facility] 2022-01-26 11:15:00 2022-01-26 12:04:10 Outpatient R MAX [facility] [id number] [facility] 2022-01-26 11:15:00 2022-01-26 12:04:10 Office Visit Max [facility] 1.2.840.114 350.1.13.10 4.2.7.2.686 [id number] 134 [id number] [facility] 2021-12-29 09:00:00 2021-12-29 09:00:00 Out[facility] [id number] [facility] 2021 11:20:00 2021 14:53:00 Emergency X YFN PANDYA [facility] ERT [id number] [facility] 2021 11:20:00 2021 14:53:00 Emergency Yfn Pandya [facility] 1.2.840.114 350.1.13.10 4.2.7.2.686 [id number] [id number] [facility] 2021-05-13 00:00:00 2021-05-13 00:00:00 Telephone Chika [place] 1.2.840.114 350.1.13.10 4.2.7.2.686 [id number] [id number] [facility] 2021-05-13 00:00:00 2021-05-13 00:00:00 Patient Secure Msg Doctor Unassigned, [place] ADELINA HILARIO 1.2840.114 350.1.13.10 4.2.7.2.686 [id number] 086 [id number] [facility] 2021-04-29 10:51:00 2021-04-29 11:59:00 Emergency X [facility] [id number] [facility] 2021-04-29 10:51:00 2021-04-29 11:59:00 Emergency Kenneth Meade [facility] 1.20.114 350.1.13.10 4.2.7.2.686 [id number] [id number] [facility] 2021-01-31 09:50:00 2021-01-31 10:44:00 Emergency X RU MCCORMICK [facility] ERT [id number] [facility] 2021-01-31 09:50:00 2021-01-31 10:44:00 Emergency JessicacarmenzaedilsonRu [facility] 1.20.114 350.1.13.10 4.2.7.2.686 [id number] [id number] [facility] 2020-10-11 00:00:00 2020-10-11 00:00:00 Orders Only Doctor Unassigned, [place] [facility] 1.20.114 350.1.13.10 4.2.7.2.686 [id number] [facility] 2020-09-20 00:00:00 2020-09-20 00:00:00 Orders Only Doctor Unassigned, [place] [facility] 1.2840.114 350.1.13.10 4.2.7.2.686 [id number] [id number] [facility] 2020-07-23 00:00:00 2020-07-23 00:00:00 Refill Sherly Santana [facility] 1.2.840.114 350.1.13.10 4.2.7.2.686 [id number] 134 [id number] [facility] 2020-06-25 09:30:00 2020-06-25 10:00:00 Telemedici ne Visit Max [facility] 1.2.840.114 350.1.13.10 4.2.7.2.686 [id number] 134 [id number] [facility] 2020-06-25 09:30:00 2020-06-25 09:30:00 Outpatient R MAX [facility] [id number] [facility] 2020-06-23 00:00:00 2020-06-23 00:00:00 Refill Max [facility] 1.2.840.114 350.1.13.10 4.2.7.2.686 [id number] 134 [id number] [facility] 2020-06-09 08:00:00 2020-06-09 08:00:00 Outpatient [facility] [id number] [facility] 2020-05-29 11:00:00 2020-05-29 11:00:00 Outpatient [facility] [id number] [facility] 2020-05-27 00:00:00 2020-05-27 00:00:00 Refill Max [facility] 1.2.840.114 350.1.13.10 4.2.7.2.686 [id number] 134 [id number] [facility] 2020-05-26 10:56:40 2020-05-26 11:26:40 Telemedici ne Visit Max [facility] 1.2.840.114 350.1.13.10 4.2.7.2.686 [id number] 134 [id number] [facility] 2020-05-26 10:00:00 2020-05-26 10:00:00 Outpatient SHERLY RODAS [facility] [id number] [facility] 2020-05-13 06:31:00 2020-05-13 09:23:00 Hospital Encounter [place] [facility] 1.2.840.114 350.1.13.10 4.2.7.2.686 [id number] [facility] 2020-05-13 07:27:00 2020-05-13 08:44:00 Anesthesia Event Jorge Montilla Leonard [facility] 1.2.840.114 350.1.13.10 4.2.7.2.686 [id number] [id number] [facility] 2020-05-13 00:00:00 2020-05-13 00:00:00 Telephone [place] [facility] 1.2.840.114 350.1.13.10 4.2.7.2.686 [id number] 134 [id number] [facility] 2020-05-13 00:00:00 2020-05-13 00:00:00 Telephone [place] [facility] 1.2.840.114 350.1.13.10 4.2.7.2.686 [id number] 134 [id number] [facility] 2020-05-12 13:33:21 2020-05-12 13:48:21 Laboratory Only Only, Adc Test [place] [facility] 1.2.840.114 350.1.13.10 4.2.7.2.686 [id number] 353 [id number] [facility] 2020-05-12 13:32:05 2020-05-12 13:47:05 Washroom Cleaner Visit 1, Adc Lab [place] [facility] 1.2.840.114 350.1.13.10 4.2.7.2.686 [id number] 353 [id number] [facility] 2020-05-12 13:30:00 2020-05-12 13:30:00 Outpatient R [facility] [id number] [facility] 2020-05-12 00:00:00 2020-05-12 00:00:00 Orders Only Doctor Unassigned, [place] [facility] 1.2.840.114 350.1.13.10 4.2.7.2.686 [id number] [facility] 2020-05-06 00:00:00 2020-05-06 00:00:00 Telephone [place] [facility] 1.2.840.114 350.1.13.10 4.2.7.2.686 [id number] 134 [id number] [facility] 2020-05-06 00:00:00 2020-05-06 00:00:00 Patient Outreach [place] Wang [facility] 1.2.840.114 350.1.13.10 4.2.7.2.686 [id number] [facility] 2020-05-02 00:00:00 2020-05-02 00:00:00 Prep For Surgery [place] [facility] 1.2.840.114 350.1.13.10 4.2.7.2.686 [id number] 134 [id number] [facility] 2020-05-01 13:22:03 2020-05-01 14:27:04 [facility] [place] [facility] 1.2.840.114 350.1.13.10 4.2.7.2.686 [id number] 134 [id number] [facility] 2020-05-01 13:30:00 2020-05-01 13:30:00 Outpatient R [facility] PONCE [facility] [id number] [facility] 2020-04-28 08:47:13 2020-04-28 09:35:46 Office Visit Max [facility] 1..840.114 350.1.13.10 4.2.7.2.686 [id number] 134 [id number] [facility] 2020-04-28 08:30:00 2020-04-28 08:30:00 Outpatient Denisse SANTANA [facility] [id number] [facility] 2020-04-28 00:00:00 2020-04-28 00:00:00 Case Management Max [facility] 1..840.114 350.1.13.10 4.2.7.2.686 [id number] 134 [id number] [facility] 2020-04-22 11:00:00 2020-04-22 11:00:00 [facility] [id number] [facility] 2020-03-26 00:00:00 2020-03-26 00:00:00 Orders Only Doctor Unassigned, [place] [facility] 1.840.114 350.1.13.10 4.2.7.2.686 [id number] [facility] 2020-03-25 10:00:00 2020-03-25 10:00:00 Outpatient Denisse SANTANA [facility] [id number] [facility] 2020-02-25 03:32:00 2020-02-26 12:30:00 Hospital Encounter [place] Megan [facility] 1..840.114 350.1.13.10 4.2.7.2.686 [id number] [id number] [facility] 2020-02-26 00:00:00 2020-02-26 00:00:00 Cyndee Ponce [place] Estrada [facility] Professio nal Building 1.20.114 350.1.13.10 4.2.7.2.686 [id number] 134 [id number] [facility] 2020-02-22 11:34:43 2020-02-22 11:49:43 Laboratory Only Only, Adc Test Colin Hayward [facility] 1.0.114 350.1.13.10 4.2.7.2.686 [id number] [facility] 2020-02-22 11:15:00 2020-02-22 11:15:00 Outpatient R [facility] [id number] [facility] 2020-02-19 13:28:35 2020-02-19 13:43:35 Routine Visit Sherly Santana [facility] Building 1.0.114 350.1.13.10 4.2.7.2.686 [id number] 134 [id number] [facility] 2020-02-19 13:30:00 2020-02-19 13:30:00 Outpatient R BOST[facility] PONCE [facility] [id number] [facility] 2020-02-19 00:00:00 2020-02-19 00:00:00 Orders Only Doctor Unassigned, [place] [facility] 1.0.114 350.1.13.10 4.2.7.2.686 [id number] [facility] 2020-02-12 11:33:09 2020-02-12 12:27:07 Routine [facility] Building 1.20.114 350.1.13.10 4.2.7.2.686 [id number] 134 [id number] [facility] 2020-02-12 11:30:00 2020-02-12 11:30:00 Outpatient R YOHANNESSHERLY CASTREJON [facility] [id number] [facility] 2020-01-28 15:40:34 2020-01-28 15:55:34 Washroom Cleaner Visit 2, Adc Lab [place] [facility] Building 1.2.840.114 350.1.13.10 4.2.7.2.686 [id number] [facility] 2020-01-28 13:58:01 2020-01-28 14:13:01 Routine Visit [place] [facility] Building 1.2.840.114 350.1.13.10 4.2.7.2.686 [id number] 134 [id number] [facility] 2020-01-28 14:00:00 2020-01-28 14:00:00 Outpatient R [facility] PONCE [facility] [id number] [facility] 2020-01-28 00:00:00 2020-01-28 00:00:00 Orders Only Doctor Unassigned, [place] [facility] 1.2.840.114 350.1.13.10 4.2.7.2.686 [id number] [facility] 2020-01-07 09:01:50 2020-01-07 09:23:41 Routine Visit YohannesSherly castrejon [facility] Building 1.2.840.114 350.1.13.10 4.2.7.2.686 [id number] 134 [id number] [facility] 2020-01-07 09:00:00 2020-01-07 09:00:00 Outpatient R MAX [facility] [id number] [facility] 2020-01-04 10:47:52 2020-01-04 11:17:52 Washroom Cleaner Visit Ultrasound, Adc Antoni Reyes [facility] 1.114 350.1.13.10 4.2.7.2.686 [id number] 134 [id number] [facility] 2020-01-04 10:45:00 2020-01-04 10:45:00 Outpatient P [facility] [id number] [facility] 2019-12-24 08:49:12 2019-12-24 09:57:40 Routine Visit [place] [facility] 1.114 350.1.13.10 4.2.7.2.686 [id number] 134 [id number] [facility] 2019-12-24 08:45:00 2019-12-24 08:45:00 Outpatient R ROSARIO [facility] [id number] [facility] 2019-12-24 00:00:00 2019-12-24 00:00:00 Orders Only Doctor Unassigned, [place] [facility] 1.114 350.1.13.10 4.2.7.2.686 [id number] [id number] [facility] 2019-12-14 09:04:00 2019-12-14 14:00:00 Emergency Gela Morse Megan [facility] 1.114 350.1.13.10 4.2.7.2.686 [id number] [id number] [facility] 2019-12-14 00:00:00 2019-12-14 00:00:00 Telephone [place] [facility] 1.114 350.1.13.10 4.2.7.2.686 [id number] 134 [id number] [facility] 2019-12-14 00:00:00 2019-12-14 00:00:00 Orders Only Doctor Unassigned, [place] [facility] 1..114 350.1.13.10 4.2.7.2.686 [id number] [facility] 2019-12-04 10:30:00 2019-12-04 10:30:00 Outpatient R SHERLY SANTANA [facility] [id number] [facility] 2019-12-04 09:13:06 2019-12-04 09:28:06 Washroom Cleaner Visit 2, Adc [facility] 1.2.840.114 350.1.13.10 4.2.7.2.686 [id number] [facility] 2019-12-04 08:38:14 2019-12-04 09:09:55 Routine Visit Sherly Santana [facility] Building 1.2.840.114 350.1.13.10 4.2.7.2.686 [id number] 134 [id number] [facility] 2019-12-04 08:30:00 2019-12-04 08:30:00 Outpatient R MAX [facility] [id number] [facility] 2019-12-03 10:30:00 2019-12-03 10:30:00 Outpatient R MAX [facility] [id number] [facility] 2019-10-29 11:30:00 2019-10-29 11:30:00 Outpatient R BOST[facility] PONCE [facility] [id number] [facility] 2019-10-12 10:24:22 2019-10-12 11:27:32 Washroom Cleaner Visit Ultrasound, [facility] [place] Gay [facility] Building 1.2.840.114 350.1.13.10 4.2.7.2.686 [id number] 134 [id number] [facility] 2019-10-12 10:30:00 2019-10-12 10:30:00 Outpatient P [facility] [id number] [facility] 2019-10-12 10:30:00 2019-10-12 10:30:00 Outpatient P [facility] [id number] [facility] 2019-10-03 11:30:00 2019-10-03 11:30:00 Outpatient R SHERLY SANTANA [facility] [id number] [facility] 2019-10-01 12:35:12 2019-10-01 12:50:12 Washroom Cleaner Visit Pob, Adc Lab Main Sherly Santana [facility] 1.2.840.114 350.1.13.10 4.2.7.2.686 [id number] [facility] 2019-10-01 11:34:17 2019-10-01 12:18:03 Routine Visit Sherly Santana [facility] Building 1.2.840.114 350.1.13.10 4.2.7.2.686 [id number] [facility] 2019-10-01 11:30:00 2019-10-01 11:30:00 Outpatient R SHERLY SANTANA [facility] [id number] [facility] 2019-09-25 00:00:00 2019-09-25 00:00:00 Telephone Sherly Santana [facility] 1.2.840.114 350.1.13.10 4.2.7.2.686 [id number] [facility] 2019-09-24 08:34:35 2019-09-24 09:58:15 Office Visit [place] [facility] 1.2.840.114 350.1.13.10 4.2.7.2.686 [id number] [facility] 2019-09-24 08:30:00 2019-09-24 08:30:00 Outpatient R [facility] [id number] [facility] 2019-09-24 00:00:00 2019-09-24 00:00:00 Orders Only Doctor Unassigned, [place] [facility] 1.2840.114 350.1.13.10 4.2.7.2.686 [id number] [facility] 2019-09-03 13:30:00 2019-09-03 13:30:00 Outpatient R [facility] [id number] [facility] 2019-09-03 07:55:57 2019-09-03 08:10:57 Telemedici ne Visit [facility] 1..840.114 350.1.13.10 4.2.7.2.686 [id number] [facility] 2019-08-25 00:00:00 2019-08-25 00:00:00 Telephone [place] [facility] 1.840.114 350.1.13.10 4.2.7.2.686 [id number] [facility] 2019-08-23 16:00:00 2019-08-23 16:00:00 Outpatient R ROSARIO [facility] [id number] [facility] 2019-08-23 00:00:00 2019-08-23 00:00:00 Orders Only Doctor Unassigned, [place] [facility] 1.840.114 350.1.13.10 4.2.7.2.686 [id number] [facility] 2019-08-15 00:00:00 2019-08-15 00:00:00 Telephone [place] [facility] 1.2.840.114 350.1.13.10 4.2.7.2.686 [id number] 134 [id number] [facility] 2019-08-06 10:57:16 2019-08-06 11:12:16 Washroom Cleaner Visit 2, [facility] [place] [facility] 1.2.840.114 350.1.13.10 4.2.7.2.686 [id number] [facility] 2019-08-06 08:48:09 2019-08-06 09:42:54 Routine Visit [place] [facility] 1.2.840.114 350.1.13.10 4.2.7.2.686 [id number] 134 [id number] [facility] 2019-08-06 08:45:00 2019-08-06 08:45:00 Outpatient R [facility] [id number] [facility] 2019-08-06 00:00:00 2019-08-06 00:00:00 Orders Only Doctor Unassigned, [place] [facility] 1.2.840.114 350.1.13.10 4.2.7.2.686 [id number] [facility] 2019-08-06 00:00:00 2019-08-06 00:00:00 Letter (Out) Doctor Unassigned, [place] [facility] 1.2.840.114 350.1.13.10 4.2.7.2.686 [id number] [facility] 2019-07-26 00:00:00 2019-07-26 00:00:00 Telephone [place] [facility] 1.2.840.114 350.1.13.10 4.2.7.2.686 [id number] [facility] 2019-07-03 19:12:39 2019-07-03 21:49:00 Emergency Helen Tai [facility] 1.2.840.114 350.1.13.10 4.2.7.2.686 [id number] [facility] 2019-07-03 19:12:39 2019-07-03 21:49:00 Emergency X HELEN TAI [facility] ERT [id number] [facility] 2019-07-02 08:08:54 2019-07-02 15:18:13 Telemedici ne Visit [place] [facility] Building 1.2.840.114 350.1.13.10 4.2.7.2.686 [id number] [facility] 2019-07-02 14:15:00 2019-07-02 14:15:00 Outpatient R [facility] [id number] [facility] 2018-10-29 12:58:49 2018-10-29 13:35:00 Emergency Myles Eddy [facility] 1.2.840.114 350.1.13.10 4.2.7.2.686 [id number] [facility] 2018-10-29 00:00:00 2018-10-29 00:00:00 Orders Only Doctor Unassigned, [place] [facility] 1.2.840.114 350.1.13.10 4.2.7.2.686 [id number] [facility] 2017-06-23 11:00:00 2017-06-23 11:00:00 Outpatient [facility] [id number] [facility] Results Test Description Test Time Test Comments Results Result Co mments Source [facility] [id number] 19:59:54EXAM: XR CHEST 1 VW COMPARISON: 03/27/2018 HISTORY: 27 years-old Female; chest pain FINDINGS: Lungs:The lung volumes are normal. No focal opacities. No pneumothorax. Nopleural effusion. Heart/Mediastinum: The cardiac silhouette appears normal. Bones and soft tissues: No acute osseous findings are detected.[facility]PO[facility] [id number] 19:13:00* Test Item Value Reference Range Interpretation Comme nts POCT PREG (test code = 1605) Negative On board controls acceptable with C Line (test code = 3574) Yes POCT PREG LOT # (test code = 3575) [id number] POCT PREG TEST DATE ( test code = 3576) 06/17/2024 Lab Interpretation (test cod e = 63341-7) [facility] MOLECULAR [id number] 16:50:31* Test Item Value Reference Range Interpretation Comme nts POCT Molecular FluA (test co de = 99946-0) Negative Negative POCT Molecular FluB (test co de = 57099-4) Negative Negative Lab Interpretation (test cod e = 36708-0) [facility] SARS-COV-2 ANTIGEN (BINAX NOW)2022-11-14 16:37:00* Test Item Value Reference Range Interpretation Comme nts POCT SARS-COV-2 ANTIGEN (test code = 99087-6) Not Detected Not Detected On board controls acceptable with C Line (test code = 3574) Yes ADELITA (test code = ADELITA) accurate developme nt and interpretation of all internal controls Lab Interpretation (test code = 94965-4) [facility] MOLECULAR [id number] 16:35:19* Test Item Value Reference Range Interpretation Comme nts POCT Molecular Strep (test c ode = 25351-6) Negative Negative Lab Interpretation (test cod e = 43423-9) [facility] MOLECULAR [id number] 21:17:03* Test Item Value Reference Range Interpretation Comme nts POCT Molecular Strep (test c ode = 42875-3) Negative Negative Lab Interpretation (test cod e = 34957-3) [facility] MOLECULAR [id number] 14:51:09* Test Item Value Reference Range Interpretation Comme nts POCT Molecular Strep (test c ode = 90826-2) Negative Negative Lab Interpretation (test cod e = 95396-2) [facility] MOLECULAR [id number] 14:42:34* Test Item Value Reference Range Interpretation Comme nts POCT Molecular Strep (test c ode = 67020-5) Negative Negative Lab Interpretation (test cod e = 49431-4) [facility] URINALYSIS W/O SPECIFIC [id number] 21:29:00* Test Item Value Reference Range Interpretation Comme nts POCT PH U (test code = 3254) 6 mg/dl 5-8 POCT U LEUK EST (test code = 3263) trace Negative - Negative POCT U NIT (test code = 3262) negative Negative - Negati ve POCT U PROT (test code = 3259) trace Negative - Negat ricarda POCT U GLU (test code = 3256) negative Negative - Negati ve POCT U KETONE (test code = 3258) negative Negative - Neg ative POCT U BLD (test code = 3257) trace Negative - Negati ve [facility] MOLECULAR [id number] 22:02:56* Test Item Value Reference Range Interpretation Comme nts POCT Molecular Strep (test c ode = 04703-6) Negative Negative Lab Interpretation (test cod e = 10931-6) Normal [facility] URINALYSIS W/O SPECIFIC [id number] 16:15:00* Test Item Value Reference Range Interpretation Comme nts POCT PH U (test code = 3254) 5 mg/dl 5-8 POCT U LEUK EST (test code = 3263) NEG Negative - Negative POCT U NIT (test code = 3262) NEG Negative - Negati ve POCT U PROT (test code = 3259) NEG Negative - Negat ricarda POCT U GLU (test code = 3256) NEG Negative - Negati ve POCT U KETONE (test code = 3258) NEG Negative - Neg ative POCT U BLD (test code = 3257) NEG Negative - Negati ve [facility] URINALYSIS W/O SPECIFIC [id number] 16:15:00* Test Item Value Reference Range Interpretation Comme nts POCT PH U (test code = 3254) 5 mg/dl 5-8 POCT U LEUK EST (test code = 3263) NEG Negative - Negative POCT U NIT (test code = 3262) NEG Negative - Negati ve POCT U PROT (test code = 3259) NEG Negative - Negat ricarda POCT U GLU (test code = 3256) NEG Negative - Negati ve POCT U KETONE (test code = 3258) NEG Negative - Neg ative POCT U BLD (test code = 3257) NEG Negative - Negati ve [facility] URINALYSIS W/O SPECIFIC [id number] 19:37:00* Test Item Value Reference Range Interpretation Comme nts POCT PH U (test code = 3254) 5 mg/dl 5-8 POCT U LEUK EST (test code = 3263) Trace Negative - Negative POCT U NIT (test code = 3262) negative Negative - Negati ve POCT U PROT (test code = 3259) negative Negative - Negat ricarda POCT U GLU (test code = 3256) negative Negative - Negati ve POCT U KETONE (test code = 3258) 1+ Negative - Neg ative POCT U BLD (test code = 3257) Negative - Negati ve [facility] URINALYSIS W/O SPECIFIC [id number] 19:37:00* Test Item Value Reference Range Interpretation Comme nts POCT PH U (test code = 3254) 5 mg/dl 5-8 POCT U LEUK EST (test code = 3263) Trace Negative - Negative POCT U NIT (test code = 3262) negative Negative - Negati ve POCT U PROT (test code = 3259) negative Negative - Negat ricarda POCT U GLU (test code = 3256) negative Negative - Negati ve POCT U KETONE (test code = 3258) 1+ Negative - Neg ative POCT U BLD (test code = 3257) Negative - Negati ve [facility] [id number] 19:36:00* Test Item Value Reference Range Interpretation Comme nts POCT PREG (test code = 1605) Negative On board controls acceptable with C Line (test code = 3574) Yes POCT PREG LOT # (test code = 3575) POCT PREG TEST DATE ( test code = 3576) [facility] [id number] 19:36:00* Test Item Value Reference Range Interpretation Comme nts POCT PREG (test code = 1605) Negative On board controls acceptable with C Line (test code = 3574) Yes POCT PREG LOT # (test code = 3575) POCT PREG TEST DATE ( test code = 3576) [facility] METABOLIC PANEL (12152)2021 17:32:25* Test Item Value Reference Range Interpretation Comme nts NA (test code = 8315884781) 140 mmol/L 135-145 K (test code = 0541948035) 4.2 mmol/L 3.5-5.0 CL (test code = 3972586494) 105 mmol/L 98-108 CO2 TOTAL (test code = 4689910054) 23 mmol/L 23-31 AGAP (test code = 0606170217) 2-16 BUN (test code = 0491711807) 15 mg/dL 7-23 GLUCOSE (test code = 4363846543) 115 mg/dL 70-110 H CREATININE (test code = 4120292640) 0.68 mg/dL 0.50-1.04 TOTAL BILI (test code = 1046137907) 0.4 mg/dL 0.1-1.1 CALCIUM (test code = 5072438074) 9.2 mg/dL 8.6-10.6 T PROTEIN (test code = 8195866883) 7.4 g/dL 6.3-8.2 ALBUMIN (test code = 9360684592) 4.7 g/dL 3.5-5.0 ALK PHOS (test code = 6874297354) 48 U/L 34-122 ALTv (test code = 1742-6) 23 U/L 5-35 AST(SGOT) (test code = 3161426017) 26 U/L 13-40 eGFR (test code = 9538687799) mL/min/1.73m2 ADELITA (test code = ADELITA) Association of Glomerular Filtration Rate (GFR) and Staging of Kidney Disease* + --+ --+ ------+| GFR (mL/min/1.73 m2) ?| With Kidney Damage ?| ?Without Kidney Damage+ --------+ --------+ +| ?>90 ?| ?Stage one ?| ? Normal ?+ ---+ ---+ -------+| ?60-89 ?| ?Stage two ?| ? Decreased GFR ? + --+ --+ ------+| ?30-59 ?| ?Stage three ?| ? Stage three ? + --+ --+ ------+| ?15-29 ?| ?Stage four ? | ? Stage four ?+ ---+ ---+ -------+| ?<15 (or dialysis) ? ?| ?Stage five ? | ? Stage five ?+ ---+ ---+ -------+ *Each stage assumes the associated GFR level has been in effect for at least three months. ?Stages 1 to 5, with or without kidney disease, indicate chronic kidney disease. Notes: Determination of stages one and two (with eGFR >59mL/min/1.73 m2) requires estimation of kidney damage for at least three months as defined by structural or functional abnormalities of the kidney, manifested by either:Pathological abnormalities or Markers of kidney damage (including abnormalities in the composition of the blood or urine or abnormalities in imaging tests). Lab Interpretation (test code = 15371-0) Abnormal [facility] CenterLIPASE2022-07-[facility] 17:32:00* Test Item Value Reference Range Interpretation Comme nts LIPASE (test code = 6776933739) 114 U/L 0-220 Lab Interpretation (test cod e = 32678-8) Normal [facility]PO[facility] [id number] 16:39:00* Test Item Value Reference Range Interpretation Comme nts POCT PREG (test code = 1605) negative On board controls acceptable with C Line (test code = 3574) present POCT PREG LOT # (test code = 3575) [id number] POCT PREG TEST DATE ( test code = 3576) 12/14/2022 Lab Interpretation (test cod e = 45610-5) Normal [facility] CenterCBC WITH [id number] 16:38:39* Test Item Value Reference Range Interpretation Comme nts WBC (test code = 6690-2) See_Comment [Automated [employer]] The system which generated this result transmitted reference range: 4.30 - 11.10 10*3/?L. The reference range was not used to interpret this result as normal/abnormal. RBC (test code = 789-8) See_Comment [Automated [employer]] The system which generated this result transmitted reference range: 3.93 - 5.25 10*6/?L. The reference range was not used to interpret this result as normal/abnormal. HGB (test code = 718-7) 13.1 g/dL 11.6-15.0 HCT (test code = 4544-3) 40.0 % 35.7-45.2 MCV (test code = 787-2) 86.8 fL 80.6-95.5 MCH (test code = 785-6) 28.4 pg 25.9-32.8 MCHC (test code = 786-4) 32.8 g/dL 31.6-35.1 RDW-SD (test code = 79422-3) 44.7 fL 39.0-49.9 RDW-CV (test code = 788-0) 14.1 % 12.0-15.5 PLT (test code = 777-3) See_Comment [Automated messa ge] The system which generated this result transmitted reference range: 166 - 358 10*3/?L. The reference range was not used to interpret this result as normal/abnormal. MPV (test code = 76168-4) 9.1 fL 9.5-12.9 L NRBC/100 WBC (test code = 0838532118) See_Comment [Automated [employer] ssage] The system which generated this result transmitted reference range: 0.0 - 10.0 /100 WBCs. The reference range was not used to interpret this result as normal/abnormal. NRBC x10^3 (test code = 5125703174) <0.01 See_Comment [Automated [employer]] The system which generated this result transmitted reference range: 10*3/?L. The reference range was not used to interpret this result as normal/abnormal. GRAN MAT (NEUT) % (test code = 770-8) 65.9 % IMM GRAN % (test code = 5999815226) 0.30 % LYMPH % (test code = 736-9) 25.8 % MONO % (test code = 5905-5) 6.1 % EOS % (test code = 713-8) 1.2 % BASO % (test code = 706-2) 0.7 % GRAN MAT x10^3(ANC) (test code = 3901661847) 6.60 10*3/uL 1.88-7.09 IMM GRAN x10^3 (test code = 0880617350) 0.03 10*3/uL 0.00-0.06 LYMPH x10^3 (test code = 731-0) 2.59 10*3/uL 1.32-3.29 MONO x10^3 (test code = 742-7) 0.61 10*3/uL 0.33-0.92 EOS x10^3 (test code = 711-2) 0.12 10*3/uL 0.03-0.39 BASO x10^3 (test code = 704-7) 0.07 10*3/uL 0.01-0.07 Lab Interpretation (test code = 46534-6) Abnormal [facility] CenterIntubation2021-03-30 12:52:03[place], R III, [employer] AND ESTATES ATTORNEY ? ? 05/13/2020 ?7:52 AMIntubationDate/Time: 05/13/2020 7:35 AMUrgency: elective Airway not difficult General Information and Staff Patient location during procedure: ORResident/TRUST AND ESTATES ATTORNEY: Fonciro, R III, CRNAPerformed: resident/TRUST AND ESTATES ATTORNEY Indications and Patient ConditionIndications for airway management: anesthesia and airway protectionSpontaneous Ventilation: absentSedation level:deepPreoxygenated: yesPatient position: sniffingMILS maintained throughoutMask difficulty assessment: 1 - vent by mask Final Airway DetailsFinal airway type: endotracheal airway Successful airway: ETTCuffed: yes Successful intubation technique: direct laryngoscopyFacilitating devices/methods: intubating styletEndotracheal tube insertion site: oralBlade: MacintoshBlade size: #3ETT size (mm): 7.0Cormack-Lehane Classification: grade I - full view of glottisPlacement verified by: chest auscultation, capnometry and palpation of cuff Cuff volume (mL): 7Measured from: lipsETT to lips (cm): 21Number of attempts at approach: 1Ventilation between attempts: noneNumber of other approaches attempted: 0 Additional CommentsSmooth, atraumatic, dentition and lips unchanged from pre-op.[facility] CenterPOCT [id number] 18:43:00* Test Item Value Reference Range Interpretation Comme nts POCT PREG (test code = 1605) Negative On board controls acceptable with C Line (test code = 3574) Yes POCT PREG LOT # (test code = 3575) POCT PREG TEST DATE ( test code = 3576) [facility] CenterPOCT [id number] 18:43:00* Test Item Value Reference Range Interpretation Comme nts POCT PREG (test code = 1605) Negative On board controls acceptable with C Line (test code = 3574) Yes POCT PREG LOT # (test code = 3575) POCT PREG TEST DATE ( test code = 3576) [facility] CenterCBC with [id number] 10:22:00* Test Item Value Reference Range Interpretation Comme nts WBC (test code = 6690-2) See_Comment H [Automated message] The system which generated this result transmitted reference range: 4.30 - 11.10 10*3/?L. The reference range was not used to interpret this result as normal/abnormal. RBC (test code = 789-8) See_Comment L [Automated message] The system which generated this result transmitted reference range: 3.93 - 5.25 10*6/?L. The reference range was not used to interpret this result as normal/abnormal. HGB (test code = 718-7) 9.7 g/dL 11.6-15 L HCT (test code = 4544-3) 31.5 % 35.7-45.2 L MCV (test code = 787-2) 85.4 fL 80.6-95.5 MCH (test code = 785-6) 26.3 pg 25.9-32.8 MCHC (test code = 786-4) 30.8 g/dL 31.6-35.1 L RDW-SD (test code = 66010-5) 41.3 fL 39-49.9 RDW-CV (test code = 788-0) 13.4 % 12-15.5 PLT (test code = 777-3) See_Comment [Automated message] The system which generated this result transmitted reference range: 166 - 358 10*3/?L. The reference range was not used to interpret this result as normal/abnormal. MPV (test code = 26780-3) 10.9 fL 9.5-12.9 NRBC/100 WBC (test code = 3196202789) See_Comment [Automated message] The system which generated this result transmitted reference range: 0.0 - 10.0 /100 WBCs. The reference range was not used to interpret this result as normal/abnormal. NRBC x10^3 (test code = 6799057776) <0.01 See_Comment [Automated message] The system which generated this result transmitted reference range: 10*3/?L. The reference range was not used to interpret this result as normal/abnormal. GRAN MAT (NEUT) % (test code = 770-8) 67.6 % IMM GRAN % (test code = 6631817218) 1.10 % LYMPH % (test code = 736-9) 24.0 % MONO % (test code = 5905-5) 5.8 % EOS % (test code = 713-8) 0.9 % BASO % (test code = 706-2) 0.6 % GRAN MAT x10^3(ANC) (test code = 4749712866) 11.77 10*3/uL 1.88-7.09 H IMM GRAN x10^3 (test code = 3094744547) 0.19 10*3/uL 0-0.06 H LYMPH x10^3 (test code = 731-0) 4.17 10*3/uL 1.32-3.29 H MONO x10^3 (test code = 742-7) 1.00 10*3/uL 0.33-0.92 H EOS x10^3 (test code = 711-2) 0.15 10*3/uL 0.03-0.39 BASO x10^3 (test code = 704-7) 0.11 10*3/uL 0.01-0.07 H POLYCHROMASIA (test code = 31997-1) 2+ See_Comment [Automated message] The system which generated this result transmitted reference range: 2+. The reference range was not used to interpret this result as normal/abnormal. Lab Interpretation (test code = 58800-9) Abnormal [facility] OR RONNIE ONLY - [id number] 09:06:00* Test Item Value Reference Range Interpretation Comme nts RPR (Qualitative) (test code = 30574-8) Nonreactive Nonreactive Lab Interpretation (test cod e = 54884-2) Normal [facility] CenterHepatitis B Surface [id number] 17:31:00 * Test Item Value Reference Range Interpretation Comme nts HBsAg Semi-Quantitative (bashir t code = 5195-3) Negative Negative [facility] CenterRHO (D) IMMUNE [id number] 17:03:39* Test Item Value Reference Range Interpretation Comme nts RHIG CANDIDATE? (test code = 5055) No- see comment Patient is not a candidate for RhIg- Patient is Rh Positive.Performed at [facility] Laboratory Services - [facility] Blood [address] [place] [id number] Free: [phone] No. [id number] [facility] CenterArterial Cord [id number] 13:43:00* Test Item Value Reference Range Interpretation Comme nts BASE EXCESS, CORD (test code = 8446075423) mEq/L AC PH, CORD (BEAKER) (test code = 1590970693) 7.18-7.38 PC02, CORD (test code = 5830058627) See_Comment [Automated messa ge] The system which generated this result transmitted reference range: 32 - 66 mmHg. The reference range was not used to interpret this result as normal/abnormal. PO2, CORD (test code = 5870772274) See_Comment [Automated messa ge] The system which generated this result transmitted reference range: 10 - 30 mmHg. The reference range was not used to interpret this result as normal/abnormal. BICARBONATE, CORD (test code = 8994534787) See_Comment [Automated messa ge] The system which generated this result transmitted reference range: 17 - 27 mEq/L. The reference range was not used to interpret this result as normal/abnormal. [facility] CenterVenous Cord [id number] 13:40:00* Test Item Value Reference Range Interpretation Comme [facility] VENOUS BASE EXCESS, CORD (test code = 6901501825) mEq/L VENOUS PH, CORD (test code = 0933599330) 7.25-7.45 VENOUS PC02, CORD (test code = 0923816693) See_Comment [Automated me ssage] The system which generated this result transmitted reference range: 27 - 49 mmHg. The reference range was not used to interpret this result as normal/abnormal. VENOUS PO2, CORD (test code = 5168611698) See_Comment H [Automated me ssage] The system which generated this result transmitted reference range: 17 - 41 mmHg. The reference range was not used to interpret this result as normal/abnormal. VENOUS BICARBONATE, CORD (test code = 8561050823) See_Comment [[employer] message] The system which generated this result transmitted reference range: 12 - 29 mEq/L. The reference range was not used to interpret this result as normal/abnormal. Lab Interpretation (test code = 70687-8) Abnormal [facility] CenterHIV 1/2 AG-AB WITH [id number] 12:06:00* Test Item Value Reference Range Interpretation Comme nts HIV Semi-quantitative (test code = 77048-7) Negative Negative ADELITA (test code = ADELITA) Non-reactive for HIV-1 antigen and HIV-1/HIV-2 antibodies. ?No laboratory evidence of HIV infection. ?Repeat in 2-4 weeks if acute HIV infection is suspected. [facility] CenterType and Screen - ONCE [id number] 11:19:09 * Test Item Value Reference Range Interpretation Comme nts ABO & RH (test code = 20) O Positive Performed at [facility] Laboratory Services - [facility] Blood [address] [place] [address] Free: [phone] No. [id number] IAT (test code = 1185) Negative Performed at [facility] Laboratory Services - [facility] Blood [address] [place], [place] [address]Toll Free: [phone] No. [id number] [facility] CenterCBC with Spclnjpbiryd6810-91-47 10:39:00* Test Item Value Reference Range Interpretation Comme nts WBC (test code = 6690-2) See_Comment H [Automated messa ge] The system which generated this result transmitted reference range: 4.30 - 11.10 10*3/?L. The reference range was not used to interpret this result as normal/abnormal. RBC (test code = 789-8) See_Comment [Automated messa ge] The system which generated this result transmitted reference range: 3.93 - 5.25 10*6/?L. The reference range was not used to interpret this result as normal/abnormal. HGB (test code = 718-7) 10.4 g/dL 11.6-15 L HCT (test code = 4544-3) 33.8 % 35.7-45.2 L MCV (test code = 787-2) 84.9 fL 80.6-95.5 MCH (test code = 785-6) 26.1 pg 25.9-32.8 MCHC (test code = 786-4) 30.8 g/dL 31.6-35.1 L RDW-SD (test code = 87239-5) 41.3 fL 39-49.9 RDW-CV (test code = 788-0) 13.4 % 12-15.5 PLT (test code = 777-3) See_Comment [Automated [employer]] The system which generated this result transmitted reference range: 166 - 358 10*3/?L. The reference range was not used to interpret this result as normal/abnormal. MPV (test code = 41483-6) 11.2 fL 9.5-12.9 NRBC/100 WBC (test code = 9956617870) See_Comment [Automated [employer] ss[employer]] The system which generated this result transmitted reference range: 0.0 - 10.0 /100 WBCs. The reference range was not used to interpret this result as normal/abnormal. NRBC x10^3 (test code = 8791903136) <0.01 See_Comment [Automated [employer]] The system which generated this result transmitted reference range: 10*3/?L. The reference range was not used to interpret this result as normal/abnormal. GRAN MAT (NEUT) % (test code = 770-8) 71.3 % IMM GRAN % (test code = 8239803504) 0.80 % LYMPH % (test code = 736-9) 20.6 % MONO % (test code = 5905-5) 6.4 % EOS % (test code = 713-8) 0.5 % BASO % (test code = 706-2) 0.4 % GRAN MAT x10^3(ANC) (test code = 6655933041) 9.25 10*3/uL 1.88-7.09 H IMM GRAN x10^3 (test code = 3378100355) 0.10 10*3/uL 0-0.06 H LYMPH x10^3 (test code = 731-0) 2.67 10*3/uL 1.32-3.29 MONO x10^3 (test code = 742-7) 0.83 10*3/uL 0.33-0.92 EOS x10^3 (test code = 711-2) 0.07 10*3/uL 0.03-0.39 BASO x10^3 (test code = 704-7) 0.05 10*3/uL 0.01-0.07 Lab Interpretation (test code = 64059-7) Abnormal [facility] URINALYSIS W/O SPECIFIC [id number] 19:48:00* Test Item Value Reference Range Interpretation Comme nts POCT PH U (test code = 3254) n/a 5-8 POCT U LEUK EST (test code = 3263) n/a Negative - N egative POCT U NIT (test code = 3262) n/a Negative - Negati ve POCT U PROT (test code = 3259) neg Negative - Negat ricarda POCT U GLU (test code = 3256) neg Negative - Negati ve POCT U KETONE (test code = 3258) n/a Negative - Neg ative POCT U BLD (test code = 3257) n/a Negative - Negati ve Lab Interpretation (test cod e = 02553-1) Normal [facility] URINALYSIS W/O SPECIFIC [id number] 18:16:00* Test Item Value Reference Range Interpretation Comme nts POCT PH U (test code = 3254) n/a 5-8 POCT U LEUK EST (test code = 3263) n/a Negative - N egative POCT U NIT (test code = 3262) n/a Negative - Negati ve POCT U PROT (test code = 3259) neg Negative - Negat ricarda POCT U GLU (test code = 3256) neg Negative - Negati ve POCT U KETONE (test code = 3258) n/a Negative - Neg ative POCT U BLD (test code = 3257) n/a Negative - Negati ve [facility] URINALYSIS W/O SPECIFIC [id number] 21:33:00* Test Item Value Reference Range Interpretation Comme nts POCT PH U (test code = 3254) na 5-8 POCT U LEUK EST (test code = 3263) na Negative - N egative POCT U NIT (test code = 3262) na Negative - Negati ve POCT U PROT (test code = 3259) neg Negative - Negat ricarda POCT U GLU (test code = 3256) neg Negative - Negati ve POCT U KETONE (test code = 3258) na Negative - Neg ative POCT U BLD (test code = 3257) na Negative - Negati ve [facility] URINALYSIS W/O SPECIFIC [id number] 15:16:00* Test Item Value Reference Range Interpretation Comme nts POCT PH U (test code = 3254) n/a 5-8 POCT U LEUK EST (test code = 3263) n/a Negative - N egative POCT U NIT (test code = 3262) n/a Negative - Negati ve POCT U PROT (test code = 3259) neg Negative - Negat ricarda POCT U GLU (test code = 3256) neg Negative - Negati ve POCT U KETONE (test code = 3258) n/a Negative - Neg ative POCT U BLD (test code = 3257) n/a Negative - Negati ve Lab Interpretation (test cod e = 29647-6) [facility] URINALYSIS W/O SPECIFIC [id number] 15:12:00* Test Item Value Reference Range Interpretation Comme nts POCT PH U (test code = 3254) n/a 5-8 POCT U LEUK EST (test code = 3263) na Negative - N egative POCT U NIT (test code = 3262) n/a Negative - Negati ve POCT U PROT (test code = 3259) neg Negative - Negat ricarda POCT U GLU (test code = 3256) neg Negative - Negati ve POCT U KETONE (test code = 3258) n/a Negative - Neg ative POCT U BLD (test code = 3257) n/a Negative - Negati ve Lab Interpretation (test cod e = 03444-7) [facility] URINALYSIS W/O SPECIFIC [id number] 13:54:00* Test Item Value Reference Range Interpretation Comme nts POCT PH U (test code = 3254) n/a 5-8 POCT U LEUK EST (test code = 3263) n/a Negative - N egative POCT U NIT (test code = 3262) n/a Negative - Negati ve POCT U PROT (test code = 3259) neg Negative - Negat ricarda POCT U GLU (test code = 3256) neg Negative - Negati ve POCT U KETONE (test code = 3258) n/a Negative - Neg ative POCT U BLD (test code = 3257) n/a Negative - [facility] [id number] 17:27:00* Test Item Value Reference Range Interpretation Comme nts POCT PH U (test code = 3254) n/a 5-8 POCT U LEUK EST (test code = 3263) n/a Negative - N egative POCT U NIT (test code = 3262) n/a Negative - Negati ve POCT U PROT (test code = 3259) neg Negative - Negat ricarda POCT U GLU (test code = 3256) neg Negative - Negati ve POCT U KETONE (test code = 3258) n/a Negative - Neg ative POCT U BLD (test code = 3257) n/a Negative - Negati ve [facility]ID [id number] 17:15:00* Test Item Value Reference Range Interpretation Comme [facility] Case Report (test code = 9577965374) Gynecologic Cytology ?Case: [id number] ? Authorizing Provider: ?Boston Ponce MD ?Collected: ? 08/06/2019926 ?Ordering Location: ? ? [facility]'s ?Received: ?08/07/2019 0000 ? [facility] [place] ? First Screen: ?Victor, Yohana E. ? Pathologist: ? Rafaela Marcial, ? Specimen: ? ?Liquid Based Pap Preparation, CERVIX ? Clinical Information (test code = 4337573885) no hx of pap Specimen Adequacy (test code = 81012-3) Satisfactory for Evaluation(Endocervic al/Transformation Zone Component Present) Interpretation (test code = 66538-6) Atypical squamous cells of undetermined significance, cannot exclude high grade Comments (test code = 0498055212) l4eqkKGvRMOfk7btMRIen GFuZzEwMzNcZnRuYmpcdW TgZKsbydYsMKoxb5VtK2M yMjAwMFxhbnNpXGRlZmxh lqozEOFqHYR6jnIrMKSkT BkyHFZhHTwiJt4stPOovR yqNkUfKWGpz1tsgaNXcpq ufAx5q1onUIQiXdW5xFOq XWnvK6djrlNspMMoGDYvW Zw4xV06QKVroP7gmJGpRV tccmVkMFxncmVlbjBcYmx 0PWZwT3raTBNyPMNsT1Jp DJ3zLNFjTph2HAV1XOY7w Zipk7B9oAQsxUUwoHqfAl MkAdWyVDGOl2BpRUz6vZx qB2CqHRGuYwJ9mMBzIAOb QPrxKRFiZHJgttA1rP21Y JveevK6eQZsu6Msg88ye2 40rG0jvURcASV4IPOjSIY uzCLhJXZuXYZ6PNQglVVq R2snTRnePA3ogfawUFO5S FxtYXJndDcyMFxtYXJnYj MswIDaHBPmlOmcMJuaf10 8ZKS6BtSsIL7kW3Zui8H2 tY8tkHKyJQUdmUXhMjKkI LNyih9qyLGvURgky4RgOZ E7ybL9vWSxqAPuPGElBA7 7Ojura7SmEswsVDQ8OMQg vvMuz7QgLFV7tm4gtREnj FarqfZwwIFdJNavR1XkTZ Trd089HZJmJ1PsGHAnv8B 8quEuEiMxSBKjfXD5meX9 CPXvJWo7pCJkdxN4wrAoc OElM0oxjQ8jHWabWK5uzg sci6nkJVP3GPgjPQJsnAP 6amapWEjbPOOxSkF1hfEt cRRcDDQtrKzoUQrcy786A EB2FjTnTIPem5FsL9HgeQ htH44ueXehC52jRSYbvDo unX7dpYclfX1uLjPcWzMd MFxxbFxwbGFpblxmMFxmc zIwXHBsYWluXGYxXGZzMj BcbGFuZzEwMzNcaGljaFx rPFkgIgGzYGMnFDbyR3pg KdYmP3DmFPBaTrFlrAAsB 4mlG68rz7ggWEJiG43biT 1pL75vhYQixjHrWcladWZ 9FkWDEcMbCCKwz3KefHNd xyYxutQxjOO5HKTxIPTtF B5ajEbwejLigcE3mHI3bD lvbiwgcGxlYXNlIGZvcnd lurNwHDRjg3U8SV6hRUQy BEEtUSJce5snS4vwwgFya 8K2TCAnGBPqRHHJhhz5SC JwnHE3TS1ySIBcbUJxAH6 lZGljYWwgQnJhbmNoIEN5 zZ2rFTAmy4ngZ0alFFPio 9GhqC1ypTYgs9FfoGQrrH a5gRJnb5X3rhFpD2OoxWE xuH4oHOCbHBGlPHmpHUAq VMCwKcJijYBoDFRipn45N WW3QxOed4R7ZYAiOmAbQF LlOD7ydVhnTJVhCR3cQEZ lH1votX4hrzj2BkNmOBNd JqK7AKNqjlG0Kzw3AFCoE Avrh5vpe3QrZ2MwrWSmiL z3k9uqAIHhOyA1nCFqGDw dE1fjsuSulPKvUXDqJJl5 eX68WDOttI2ziNTmLYabt mQqXyI4TUanSRGvRsD6WF KjlDAzEVMyB4ekQGVaGQp eEYHgUMbwnLZsLCX6sLsb b1D6nJVmjRPhxArlKdCzR aDxTHNIj5WgNWh1vYqmM1 WuMCTfQsE3sZIzGRGoBEc hSNJpVCTmxmV1vG24AXsx idI1kBYia9Mun87yv798v V1zhKXhRBP1UXEmDMWgfD WoSYBiRNZ3INDlkXKjR8r dMXFwCT5unsyfILedTRhv REAyaBH1TGVgaWCcI9RkI DOeSKsiSHOklgk0TeYvDp 1bcUPhiVhyONimr4tyr8f vrSZyQmr1PNWxXiNjKwtb WYiiw7Ury3isRHUkpi07j DQsxYCriZAfak8mxuNpaF WnrOAkVGB5eHEqoeRdSZD qbGRgDODeLE7pcPDySICu bF4gjlgbMTWzDnGctvwnL WAecMiumoNxZg1zaEszNC K3EEzuW2ipxY2jSwS4PIo nM4uonK8iQGn6RHgvxYD1 PHMrqZ9sYW6ibhrik2azZ YzkSFxqTJQedhP2yuZ0HY TceSLjH8IolZ2yPGRhFM2 ajmbjn8iqIFV9OYufBKNk ABK1LuStAGEcp8Hiedo3R iHdz3IetQYpIVqjP92tw0 55IEObhsPbU0iaxACkskm qxDZemxnuMWgzswU3AVVs ejZip1BkDGArVBL1AFwyL GimmTFtBISzbZqma9uzJ3 RscGFyXHBsYWluXGYxXGZ zMjBcbGFuZzEwMzNcaGlj aFxmMVxkYmNoXGYxXGxvY 1doZbHmK2BrPEYvYtEgoT PwI4wscLSzDSgcvIL6CSN cOFTst42bnVw2RSDwyjvn d1PsPCLovKFpnTGttH1yi yRpm6qfDTReSJFjDBPzZ4 OnGXQ6fZShMOVxxVGgwFU 3QQ5sdaHqGR5oLBWmFljv cmVzaWRlbnRzLCBmZWxsb 9qbDN2lCKEolGemmO5lnT C2FJNnl9haiSQboSXjk7u dg7VltvVgUZldWMXnWXnt MGJjVXEmRA1vHPEdfQJet hUvc3K5BybyyPVxjahuFD xmczIwXGxhbmcxMDMzXGh sQ4reRdDcPAPdtZabVSka i3IiVQKwWMScWlzsjoVvM HBhclxwYXJccGFyXHNhMT RgYXZsMcT2SRHbqZIylHF oqOagmH2lYaKzGoIuWHlm tWGzznscBCurfbM6XOvir jdxNJKwWLjdF7qiVyGaAZ WpcNafLXngs7QbZUBcKBB rSkkoymL7URo0hgLvOKNb cKwdfP9weVG6HXRqw7Tdd 3Epu94yiSXgk04gy76kkw BhaETjAb5rlIBsIUM7PUG BNAHoAPNgN2HlBRAscLjk F2YigQNfTNDbIwUxARo3k LZqVkRiODfycCXRr2A4lH erZFRnJ3MhDDWwzJclOEE COBb1VDglNSDpGYftHTTq XGZzMjBcbGFuZzEwMzNca GljaFxmMVxkYmNoXGYxXG bnA7ctZgUwP3ZcIMKuQpO xpXTrU0wxzHPdaB0= LMP (test code = 9559677207) Educational Note (test code = 0443601644) t4vlvZEgKHBygZTwXoBzW EUpPITpg1gwZLNjdPPyZr EwMzNcZnRuYmpcdWMxXGR mBnFwx0rmu451wWVcu7jj IVQjOkW3cIPyZCBeoEDbW 078PCYmWZmaf6xvs6OeJU RhnEYxe9Y7OMKJoslceBd 1nVsoY78ky7X6OvqzH4hd GMKvBHDhT3NoSO5mEAMdP aq4TGF2DHS9KDZcAHE6AM xncmVlbjEyOFxibHVlNjQ pJ7nsJWCkRWwsVZBzIHqh gSAzRZQ0zWqji7W6lUQpp GVldHtcZjBcZnMyNCBOb3 IyHCm4nIxxT9JbVULuFtN 1bHQgUGFyYWdyYXBoIEZv ppF8bE48JOkooqL3dYBed 7Mos50cc051bX3ffUQvIW K1IQJaKCPvuYAeUZOyLHD 1NARujYPrV0fpVPxiYV6c zrbfRVW5MHgwMFIgjLkkM FxtYXJnYjBcaGVhZGVyeT fzOVnht143DQG1EkFfCC5 tD6Kxq6U2qF8epLIdPGRh sFYrXfDaMAVugf5krNNmH RorNYN5IWLmaaWkj5Mwm3 ioOqHawlKxU6lmP8RcATK nPEPrFQEcLoNaitFok2Es u2UwcCTqdXj4c5hxCGXtH KWzfHapu2sxZIC1TMUsJ4 J0hDTgo7ahVBwxVSWrqKF 4hvHrWDQdpKMfM0MeuX2a KKpxYD4uuin9p9moFeVoV S4brgqia3rjZJqgSWKuMJ F3CcOyISImr3DxpgozEqU il7IndWByQVbsE02gq207 DFBpidEzP1ifzBRorjbxt YAqdgppQUlwgdA3YWRsLV BsYWluXGYxXGZzMjJcbGF uZzEwMzNcaGljaFxmMVxk QtUjEZNcOBraR3uhPvHmG 1DfIAByRlHvoUEALJC1fT QngIFdcPWcxO5vtPGvBOG tHQAeb8NxJKdyHBCkg9Al EPTffO8dQJOok8JsvQGzg GVwwMx4NGMjgpXqxSVlcL 31lpJhFG4qHKDwOOPfGRB yvoQoyYHpm1QbAkXWeJVv kYVzsXXqGGJoZO6zdS5aR KXtyqZqZFM2mLSqo1eoAZ Prt5PiBggeuQO4RD7iDOE dcAZjMZ6fB6T2fBBrLVKk UPTnUPmhKW9qh5LunFs7B RLwAFZ1pQFsCxQwXmLvpV scovLiTM9haDvxDjUfvqU wIc7xdL67CLZiKW6cNAZt JAmynDChvcGsOBVkbY0lF 5MfBHMiI72cJDLxZHNxjQ 6ohX5gjbMdzgUfpbLif49 sQG9xTFJfeS9atQpfsR4y emUgdGhlIGVmZmVjdCBvZ sHzMFtjXBPpXNiklVo6PD PiQJL0eWGtAiEyCR13hxM vWBCoNO01QEOjf8AsNRHz XKFvHV6xpnEiRXZ9doRan 43cyFl9WXzrxKRukP1iML lhdGVseSBpZiBzaGUgZXh lIJUzIM4iIAOcJB30GHKx MNbizTCwojWzIYPqzQ8eK 0QwGTPyU14jVOHoTZJlwE 0ltI7bsqgmcrXbLCPgwPJ zcyBvZiBhbnkgUGFwIFRl u5HbeeWrjPw7JhqynLQyi lxmMVxmczIyXGxhbmcxMD MzVTgqG7lxAtBiYMWocYf yJMtwk5BzFTOpUIJzCmJs fWMhAOLbeyFenOyxqZ0uN jBcZnMyNFxwbGFpblxmMV bexmJ0FIOrok0= Embedded Images (test code = 0696025374) [facility] ONLY PAP SMEAR-LIQUID [id number] 17:15:00* Test Item Value Reference Range Interpretation Comme nts Case Report (test code = 6845626268) Gynecologic Cytology ?Case: [id number] ? Authorizing Provider: ?Boston Ponce MD ?Collected: ? 08/06/2019 0927 ?Ordering Location: ? ? [facility] ?Received: ?08/07/2019 0000 ? [facility] [place] ? First Screen: ?Victor, Yohana E. ? Pathologist: ? Rafaela Marcial MD ? Specimen: ? ?Liquid Based Pap Preparation, CERVIX ? Clinical Information (test code = 3761793130) no hx of pap Specimen Adequacy (test code = 33959-8) Satisfactory for Evaluation(Endocervic al/Transformation Zone Component Present) Interpretation (test code = 61656-4) Atypical squamous cells of undetermined significance, cannot exclude high grade Comments (test code = 9087704395) [id number] GFuZzEwMzNcZnRuYmpcdW YnJAodgmWpCXrkl2LmA5Z yMjAwMFxhbnNpXGRlZmxh fvyxAZGzNDY3reQsGNThT LqyGBCgMVjtQo4rkDIeqB yhKsOhIMLkl4wswsNMxar yyTu2c4duOHQeOgK9zSVv MJnlY0bbsuSqsMMcICNxV Tr9yI27PZQaiN4qsXEnHN tccmVkMFxncmVlbjBcYmx 7PKGxX7owBMBjGPUwV6Qv GS1cCMXaKua1XRH5GGU5x Omak1R0qTAtoTWzgIhxNp AoZfZvUBHGf6GfPDx9uPz bG2WzNRZeCeY1rYKgUQJm FRrqJHTnNMMddzZ1uE48D JanmlE9qOGdd6Vwd52qd4 74nK4naVHyNOG8QNSgUOD orHAlESQyJEM4LLFcpLGi H8neOXhaUT0tzbwqGXY6P FxtYXJndDcyMFxtYXJnYj PcnEXzCIFfvJbyGTknh58 3RRF9NoOeBJ2bX2Fva6Z0 jR5szFJqJRQkpPPlAfMwV EXnag7cmZXjPLpur1NgER L5alP6wHEtePIaXPKyJM5 7Zodjx6EmMduqMWJ2ELLg ltVta7ZsNJD6ed7puSPej AkyqiSmkWTdWJjnJ9UdHF Jwf998SZDgP5IyNGMvd2V 2mdHwVeBcUFOtoHD2erL3 GYJzWJg2jCAfibG9mzBck JHwJ5jgnQ9yAMftMP2nui gos1ypUOU5SJjySBIcjCU 0laxkVEfnWIOgOrN9fdEs wWBhEBVckJofIDkvl318A VN7RjEiZEVuk6JkC4MeiJ fnG82mfQesU71xQYIgjJr yxC0oyHudkX8nHaXkShXm MFxxbFxwbGFpblxmMFxmc zIwXHBsYWluXGYxXGZzMj BcbGFuZzEwMzNcaGljaFx wRMloDcNzMETeXWmyX0zi YzTxQ8BsRRVcUgLguBVaO 2xpP21fk3qbAJRuQ90tvY 9rM78raLJyhsHvVqizfQN 5BfELFgLoWGQnj8JspMPl giPyicOrmDR2TUTvXJAeA R2nxLlparSibaC3hZO0kG lvbiwgcGxlYXNlIGZvcnd bleJgCDBwx4V7FX9uZIFl DHTzIHTiy5dqC1omdePvr 1C7LFXvVVYyHYIMyag7RX LobKT6RM4qISWghKEsTT5 lZGljYWwgQnJhbmNoIEN5 yS4oKJAqv6yjS2pgKWEof 4JltH3mkGFer0YanBKkoD t5kYWqn3W6taScH6AbiSL pkF0pMGMzHREcBGjuETUi OIQgTgUhtNWsIRYubl35C XF3PrTox8M1LGWkFqIgFS ArME5lyQfuSSDuWF8oPSJ kC1rplO0jedk4NfIhXGLa JlO4IANlyuQ1Gkq3UPZwC Cvdi0stu7YvZ3QtoFCpwI s9n8zaNSGqCnL3rOJwZYy nP8ceefPbjHWkCKJwOYl8 yG06ZVQcdE9dwJXeUKtqf uLwPjH3XJnmPQQvXmX5CP ChsQBnTLHxB9swHPTjKXu gGNGaTRznqMAtVZF2bKwb u4Z3aFTghWJeoMxaUaUjA wUoILXRg6JyQQi7mEfjO5 LcYBVrTaK9bCGlBBYyYMq mMFLeEPEsjeW8cP56SCqu myH9zBLkv8Xir19mu566r U5mhHIfYBB8EGSeKJDtsZ EhQVClFAF3TROhzRFhF9c mPMWlOV4gpizmUXhuUWri TFJptJR7KORvaGFrO0ArA QBqZDwrRYFoxik1FsHxSb 2iaKPbvTnxJOuwq1hvw0a anNZyAkt7FRUcRtNxKqpq FZdxw9Lby9agENSffb26p MNclWWrkEMnme7xtoXnwO NdoMWyMRS3dZRldxDvWPC rfZHkNNFsGO5bkDRzFUBl tE8zwbxrYITbFlPmfyxaS SRquGsgltKxKy7iwLdiNS J5XUxdW2imuC4kYdC8FKt qX7huaT4eLUs8LTuexMZ3 VODgzX1aJY5dqmqdm6nbD NfoZAmyUHJzauM5rdC0TC BboPIkZ8LzyM1aPVRfBI3 zaxaas5udCOR5GCcfWPXs IVR5JkTnKQBty1Vuhwi1D aBss6KcfTNxAOqqY10qz4 92BNBfwxZtY9rclNBwjcv moRCiuideRErfrrI1CNRe pwKpi5KcUKHtMSS2KZhtA BsebUYoRUBidHuiy9dmB5 RscGFyXHBsYWluXGYxXGZ zMjBcbGFuZzEwMzNcaGlj aFxmMVxkYmNoXGYxXGxvY 9tcRwJzT6MjROTgGeHqyJ LqM7akxQSfHHgysPC6OSZ kAHBms10ohOr9AKKmiyhn b2PiYVIbeJSbbTQchV3wi aOgg3pxFJHwUPJfRIKxJ5 OrMCO2cLXgOBNggLCskZI 7SU3oluZpVB4fOPEpCite cmVzaWRlbnRzLCBmZWxsb 8uzVG9aJTFcsShsyO0maT Q7GXXop8kvfRZhzDFeq0d eg0PjusXbQAodRVUxRZgc YNVeBWUlRL2mZHXygCNvb sZcf4U2FanscXFmvzquBA xmczIwXGxhbmcxMDMzXGh hR8apDuUzIFGwhKuyLUdg w7XyNGFcWPQvUtjfmoGtY HBhclxwYXJccGFyXHNhMT WiXKZpPrZ2KTDtdYDqbMO qbYmwcC6wHeEhTvSiDZdv mPSksuasSVzoolI4WIshm gecDHDkRRvcW0ftKeLqJO ZyxCfbNRkyo9XbYESjJZK iHkdzunE5OCt4naCcMZAj kDbwmZ8grWW4DODam7Byo 9Mme20jwWUaa58eh04elx WlvVTcDh2vqLYrXFN4IGT RBOXrGLTgA0MmPAEjgDcf P9StyIVyPGXkGnQvYTv0f FEoIoPsVZuhhMYBz4I8yM vwAHLrK1ZkRNWzrHigHUK UNJt3NAixTZKwTZliYMFo XGZzMjBcbGFuZzEwMzNca GljaFxmMVxkYmNoXGYxXG dzB1xtKiKiR3PdLGHeQzS whMZzU9uaaCNymF2= LMP (test code = 0831655924) Educational Note (test code = 5964899676) v4ehnVJpIRFfcVBhNjQpX TWgNHOvi5agRANshWZmGs EwMzNcZnRuYmpcdWMxXGR eNqWwr9gti779dFWim3on GRAzElL4mLJiSDFvzSTsD 162LACwPJffs6vqm6VsQZ XsjUYif4B2XFCJgbdmuSj 0yLeaZ56qi1T7XkprV5dg UXXuFQJdX6NdKM7mCREwH lx3UJU8KXE3ZQHzFCT1JP xncmVlbjEyOFxibHVlNjQ hA3tcAUSoBIgaUKCeBDvb bXMcTPJ1nEfqm1Y6dVAjn GVldHtcZjBcZnMyNCBOb3 LtMXy8gIipE6PgZQJyObA 1bHQgUGFyYWdyYXBoIEZv plU3qS78YWdzvnT0rRSmf 5Usk03ew797oY4lmWDeAH R0EPDhKZIkfVFmPLAaHXE 3INRwjIWrO5ieSXzlSF5v kbnmRVX1YDxyLEBztMioX FxtYXJnYjBcaGVhZGVyeT nzDRfra263EAM1ZyDiNQ0 sF4Vfd1P2yN7ycSDbDGVt pWCoMnUcPYDedn3kdLFuT VjqSAG1CVDovsOlb2Hts3 phZjYsesIbR1uqO9MkRIA fOHXvUCQbUnXsbvOdm3Ad t7NjdVZrhDx8l1gqKSOcZ RMlyVpum3atUBG3YHUxT7 S5uXLux3tiYDooFIMhlFK 7bsMuEJFweRXmR8RkwO4p AFxdXI8smjs4e9tuEbBnU E0qguoct5bsZAdvLSMdLB A7ZhRrEKMly1VepplfMhU jw6JwjRIiHYprN43zr284 QBQwihBdF3wzmYAxhijcs GPjihraZVnirzT7ZJKkFV BsYWluXGYxXGZzMjJcbGF uZzEwMzNcaGljaFxmMVxk UlCbNWNeOTkbT0boIvKhL 8PdVZPeAuGyeIZBNWT5wK XdjPWtvIHsvD6ccPSiKKT vWZQbl3CpSNwoZSXkv4Wc ZCQmhL5iZOIiz8WrfTLzg RTnnLj0IVSimzRsjUNbtP 09bnZfDC6cRKWjKJXcGTO demArjCKad1UnSoXOxRVp gJZwcJUvRCTdMM4kpK0lG DNzhgOfRRV6oJTpq0vnHJ Mqh9PbGipriEV3MZ0pHPT xyDOuBR8mU9J1qPWpXDSx WMLdQDaxXI2tw9DtuYj6B FVoOEX3aYToAfJdMsWqeX eblfRoED2pjMmrSvAkepC yKd3mbW84HWTvZM3oERAx CAqdzCAxiqSlVRBmyE4cT 2MzYDOwB19iKWXfNEJfrS 6poJ9kufPtfiAmtbGfe53 pBS0fKXRhlB4qxOlvpH0n emUgdGhlIGVmZmVjdCBvZ aUzSTjfSTLeVHmmdJd5DB DeJZP1jGJgMwFrIP23jdU eDPKrME76CEDum0NkLTOi KYLgMB1jmdVhWLK9bqPdo 04cqUk9CXynxEPvhE8fNL lhdGVseSBpZiBzaGUgZXh wGKFqVO5dPLViIM49VAYj YFmbyRLnzrFyFNAqxO3jZ 8WyRNElA11hHMOwFVCmkZ 9bzO6gvxzephLdCKOzvDX zcyBvZiBhbnkgUGFwIFRl i2BemxXlbNq8ByeizHMvg lxmMVxmczIyXGxhbmcxMD YkAWnvC0dwMdKzOQDdqOk oOYcoi1PfLEJlSRDnTmGd sBDfLREsgcCgsCtwsC7wT jBcZnMyNFxwbGFpblxmMV zvjjC2IOMnsq2= Embedded Images (test code = [id number]) [facility] ONLY PAP SMEAR-LIQUID [id number] 17:15:00* Test Item Value Reference Range Interpretation Comme nts Case Report (test code = 1703688318) Gynecologic Cytology ?Case: [id number] ? Authorizing Provider: ?Boston Ponce MD ?Collected: ? 08/06/2019926 ?Ordering Location: ? ? [facility] ?Received: ?08/07/2019 0000 ? [facility] [place] ? First Screen: ?Victor, Yohana E. ? Pathologist: ? Rafaela Marcial MD ? Specimen: ? ?Liquid Based Pap Preparation, CERVIX ? Clinical Information (test code = 6396724875) no hx of pap Specimen Adequacy (test code = 68502-8) Satisfactory for Evaluation(Endocervic al/Transformation Zone Component Present) Interpretation (test code = 61316-4) Atypical squamous cells of undetermined significance, cannot exclude high grade Comments (test code = 3552016248) k6llcAIlLMHme7hgYQJfb GFuZzEwMzNcZnRuYmpcdW YdVWdygqCiXPtzx3WlB1X yMjAwMFxhbnNpXGRlZmxh wtrzUSTeGEN6asDeGIXoP FgbVTWrMXboFp9foLOfuO dcMyZrPOCyv5ymlsRJqwf abJf8t9vaVIQaFvY3kEKt ACipJ5mnbaWzmHKbEPKoP Lr6cP71XMGovO3trAGaRK tccmVkMFxncmVlbjBcYmx 8DVGdG4vxDRVsWJOxV1Sa CM4nDGGbXcq8WTD9IWF4a Dnmy5C9dVBnbYVbxVldEg ZmXyRzCSESj5SmOAc0fYk uJ4JbEVLhEzQ6zRNeCOZh XOcbTEQjQCMtiiA2jO34G BtpoyG7rEPrs4Qzc11wh6 63lU4hjXJqRPK4AXChEBU njELbJLFxMKO2FLClzPBf A4nrDBiaBP7qddamHGU1Y FxtYXJndDcyMFxtYXJnYj EhfAWkWLIwxAxjJZxhy30 9FPH9XiNnSR9hZ8Asu0O8 gI2iwMQwPHXbbNGiZwMjG PAybk8kkBSkLAxom9PbNF W7rpI0qABpyBNeQTRdLH3 3Zzspf7KvErbrSAM1TJLr slVux2NjCDG8ox9ylCMdq KqbicIypXXbRQvwE8TuPE Eqn075QNAiM3JsWIMrx6W 3upJbEiPmNSDbfOJ1nrE0 JQAnCQj1aNMwwoC3opYss JVtY5aovK0jVGqoPU5ewk saj1ucBCU7NLrmPYJstJM 3ouwgZQufGGEtRnS2eiBk wYQiBUIijYpsPGntm687V MX9BwCfDBRph7UgR1MvlL lsU89rzUubT37xBCCmaYg tyH8drNrwhK0lEpEyDjNa MFxxbFxwbGFpblxmMFxmc zIwXHBsYWluXGYxXGZzMj BcbGFuZzEwMzNcaGljaFx bROqvPfZcWACbPWmuE0cs RqNuM9FsVCNaXdJntCHrM 6yrX65qv3crQTErI12uoC 6cS00waTAcsaYiDktbjIF 0ZmMURuPhZHMlx0FtiNWn fsCrdhCflJH4GZXrWNWcC H8jgMraaoPpedX0rOZ9rG lvbiwgcGxlYXNlIGZvcnd dycBeSZWof9Z7VU0qTNMv CXXwHOZmg7uuL3baecTjv 7F2VUKkQAMfTCDUpma8BE AidIX7VT2oLASjjYXbCX0 lZGljYWwgQnJhbmNoIEN5 mJ0rRRWse9ppB7hmSTEhg 5RiyG2cuVWjr2GphSWakG r7lEUfo4T5obBeT4PqeEO fhW0tJKAbIKPvPKmhTDFr LPOySwMbgSXfYTTtvo85V SX2OeJqg4N2BXQvAkPzHX UcGY5vhAknUBGnBN4qPHE bD6hfcU0crey1FxHbZRIu DrY3INWqzkD2Bnc1SKDjC Kaxa5aab9YdE2KwqHUybP m4a6kpOHKfMeQ4iVNgANh eO9zstjGzdKKrPKOuYXz5 yM39LGLyyZ3zgAGtZRiiu pDdTxD3WXkiGLMvUdC7AQ OtvMDnMPSeI0poIRMqJDb rNBRzCQrfgNIlOPQ6xQtj x6F2nDTukMTmoRmnYuDyT kTjWNGNr6RrCIc5eYumY3 MxHKScUwK1zCWnHIAyEIx xLDEiILGdraM7vE79DGmu brC5eWPar1Xhz43kk638l G4zyISqGHF1ZXLsSLHfdF IoBBQsBNS9WEQtgFSlL7u hHIWgOP3mnpecORyfOZog XEUaqXC7VKTesUIrK5PoI JLyOYtoYWIsihz4IlBzEg 9mvYZfsAapIFifr8smh8j ihGAzPdh2IBUjMwFfHgva MIzhe1Hsw6jcFXHyay28e TKtrRPrdKNctl5gxyRzbB AouUNlALM0aSFgxvOoSIA kyDJuRLUuMV0fyZDoCNEb dW0fgxmfBCIeIgChjexuI YHnjBuywbDtTh0xqXldTO Q9LMquN4bdzE0sFvX1EHm nH3wduW8qHPm0WJudeCD9 RAXtoT6sRS9fkmxvw8avY HbvKXhhYSDhajG0dtF3VY IgcXQjR7YkjK3nFXVeNG0 mybejv2luWZU8LZdvJXUw NCT6NdRmCQMtc7Vjiuu3H bMek2YehXFoFFzvK00nk8 33RIIkmsPiE2xnvDFxjip skTNzhdeiIIpfcnD5CNKv ybSjc7RuYIWrDDI3EXweX HvsaGIpNNXrzVvka9gdD7 RscGFyXHBsYWluXGYxXGZ zMjBcbGFuZzEwMzNcaGlj aFxmMVxkYmNoXGYxXGxvY 7reZoQlS9TgFEEePiUiqN YnL0kmxYZoIBmctZY3QIN oBFFxl71usCc2PEHufpnx d8LwTBExuNVysJRwwQ8hn vCzr8zaHDXiUPAmAOKhO9 HpFAD6cVWfZOHhmUKidTY 7DY5zkhTcLG8jQNLbGsfi cmVzaWRlbnRzLCBmZWxsb 0owZV2lZBTniIydnJ0ecT F8XZWmw0jygYTiiKCub3s ja2ZnreYzJHqhMHGaLMwp WOMgVEAmVP8cZZZfwFXzu tGrm2Y1GsuexJXybxemEM xmczIwXGxhbmcxMDMzXGh vK3cdLzUjGUBalLyeKGcz s6NjDPXwBYVqMlbmqwYoY HBhclxwYXJccGFyXHNhMT LmCHLkDcK2DHLjgGLraNF ipJsqgU8lNmYcBgVfHYpz eNMbbwrzJLqubaE0YYlxi insODJjUFagR6yyNsPuDL SnoXkeYGion0DcMKRlOOK yUvptsgR1IPd2bwPfLYGt bKibfD0maRZ5KXNxr8Rlp 1Edj26vdSUwz65uz66uuz EzsFVyCi1oyKAiIJM2ZLH AIGEgQNJbA2FdDBFpjZro L9UukKMvLWTuRyBlDUy8r XGuFuOrLIodsXPYc4Z0sF nyVWApB8WtGWQoyRzfMEC ZAQu7JZwiYGBvMOigBHHk XGZzMjBcbGFuZzEwMzNca GljaFxmMVxkYmNoXGYxXG ylC5whJnObC8CkRYUvBnQ zqJInG7vbrNOpcM9= LMP (test code = 6969218309) Educational Note (test code = 2499072881) m9sxmYMnTQEqcUMxTyRcG LKhBYUno7lzURDpxJIzLx EwMzNcZnRuYmpcdWMxXGR hWnUzm3wwu777rGIof8fp APFmRhJ3uTWqLFUnvHAlZ 980ERPyPQbdy9jdp2WdCY LqhHHza1O3UBGFmnovsBh 7uNpkQ50ed7Z8XvhxJ1bs OHUxZYOaV1LmIP7zZNZpH ij8BEZ9OHA4UKAvCZV3MS xncmVlbjEyOFxibHVlNjQ gK7ycSBUnIBxtSSTpGAyd cTUwNOC5rVqiu1G5bPJvg GVldHtcZjBcZnMyNCBOb3 UtNRl9hOdlA9MkADOaUnX 1bHQgUGFyYWdyYXBoIEZv gwB5kR67UMjmwoR6iPIuo 5Vlq87tl080iL7gwWGpHQ W6JQKoGIFzhXThELIgJWG 7KGRjsOJcR5fmCKsqBZ4y tmhuHGM5BAseOCExzLblI FxtYXJnYjBcaGVhZGVyeT nfRDgdk564XXN2WqWhPW7 wK5Ofz5O4oP0rqDFrURYk oXDnWuWcKJOqky8seHJrY EciHJC3FCByriEfr8Lvo6 rzXhUskuCeS2xnB2ToTZM aIVDfAVQpNuIkatWca8Nj a3SsnWMadDv7o6uxGROmV XOmsRpzd4txDCV4EWDdW4 O6gYPym6frPLwtZTLroAP 3bxBuZQZmjQBpC8SlnU6q ZVyxCK2cpzp7s3wpUbOzQ M2xfmcnb0lbUTrcTARmQO T9ZmLiVKHjb6JcsmusKmS oe7ZzhMEeEWdaH68gc251 QQQmhuIaL1pycXYqjzgyc PQnboxkCIxloeA1IJEpRB BsYWluXGYxXGZzMjJcbGF uZzEwMzNcaGljaFxmMVxk XdArXYQlSJvwO8qkVxDjC 0NcVRPaMcXllJCIJAX4qD OvfEQyrEMsdK2unQBjFHO wXQYdl4FcMGpsUGRyk3Zx SLDnnI5yXQEin9TgfTRlh BLwnEs7NMWnpqJblEEczN 18hkEdQS3zDQFzTMMeZHL qskYsdCAmu7MwMmWJrGNm oAJmsXLkXKVtRT4fmI1rZ MMkqkUuFAJ1tMYpt6qeEI Fgs3TnAdbqbJH2OJ0mGUM irNGsXK9lF4M8cXGgNQCy LSHxABucDQ4bl0UntCo9A XKxLKP7kZEdLeTfNwXcoB lbquHoJM7xxIouNuRdqiN lRu4hbV87OZIuJY3sJDUf SEprhXPninWdJLGluA8aV 9JqPGBeB01wDJRsSYRcdL 0jhS9ewjQjngCsbmYbv77 fLR2nTYCjzL3bsRgazL0u emUgdGhlIGVmZmVjdCBvZ nBgZKnaPHPzMOyhnAk3RD FtDQL0wUSyHtEdWC19nvA dZWVyYT47VVIej2ZaLRDz KKKhSI1oywPrPUI4zjOxu 80gsRt5AQzusFMcmA9nWM lhdGVseSBpZiBzaGUgZXh dPRMrCI6tRWNcLE46PNVn VHknmEWhykYbZFMndS1xN 4EqJWIfR67rKFLuPPWwjJ 0jlW2olbcuenYaKUPtmZT zcyBvZiBhbnkgUGFwIFRl i1WblwOkuJm8YxxjpHBcb lxmMVxmczIyXGxhbmcxMD BiLQuyO6chDmFlWWBhdMl zXVgfg5QbOBXgEYDhCeSv gPLmGUScjjIirVaxbU5pP jBcZnMyNFxwbGFpblxmMV whdwJ4NPUhqq1= Embedded Images (test code = [id number]) [facility] ONLY PAP SMEAR-LIQUID [id number] 17:15:00* Test Item Value Reference Range Interpretation Comme nts Case Report (test code = 3126629478) Gynecologic Cytology ?Case: [id number] ? Authorizing Provider: ?Boston Ponce MD ?Collected: ? 08/06/2019 0927 ?Ordering Location: ? ? [facility] ?Received: ?08/07/2019 0000 ? [facility] [place] ? First Screen: ?Victor, Yohana E. ? Pathologist: ? Rafaela Marcial MD ? Specimen: ? ?Liquid Based Pap Preparation, CERVIX ? Clinical Information (test code = 6707667561) no hx of pap Specimen Adequacy (test code = 57602-3) Satisfactory for Evaluation(Endocervic al/Transformation Zone Component Present) Interpretation (test code = 11290-1) Atypical squamous cells of undetermined significance, cannot exclude high grade Comments (test code = 9285468317) b2zxlIPzWQYul5jwGFHxu GFuZzEwMzNcZnRuYmpcdW GbMXcwleEsXYjox0VkG0B yMjAwMFxhbnNpXGRlZmxh blluCPRqTZP2jyPdDSMcH TobJOMvTKkbNp3crAAkkS ysZpOxHXYre2vpuaKSegp piZc6b6olILTmNpI6qWZz ZOzcK2eyheSntDBqFHFeJ Yl0aX54ZDDyoP3glJRgVZ tccmVkMFxncmVlbjBcYmx 4APNqG8dnKKExLZRvQ7Ht MG5pMLIrGqu7ZMG9DHL0o Qama1Y9yNZsfRZfyHbrJr InQpDnZLRTb3YnONx1zHh zW9OwXEIqBnW6pDRjRVWb TCfdBLCqTFPxzqO5tG99T PlrytF3qXZik8Huz15co4 62iE5dnDSiQHN3YFDfYZW dzHYeDCLcHLE2JCZnmFHs B9dmBSwmWW9oncswQDX9S FxtYXJndDcyMFxtYXJnYj GxwQHhUMLwcHnyHAbrc96 7MDK6BfGtCJ1mT6Ast5M3 lO2giIIbQDMesQKzOsAqG TImxr4wcGOoWFhbh4XiCG S7ucI2uEZjzHPvMKUtIG0 4Bfjqn9MlUvtyMHQ3AVEp cnNbb4IlTPB6ym0pqMAcv TrvccAjjGWgIYovS3QbPA Coq600KHHsE5ExTRDrk2W 4jvKgRgDfDKJjaLV9wdU3 PBXsZRp6kPBpuvB4vuCux LIuS6exjN3nOJqyNG2qxt bjp0tmYMX3QPdpAQPpeAC 4mxqyIVayGCXnPcC3urWt hNIwQOLgjBobRUcns046O VT9XhTfBNAls2BbO5EktD zmV51nxYdzX30tBNXrvBc tqU1woCygmD6zCsGzGoXh MFxxbFxwbGFpblxmMFxmc zIwXHBsYWluXGYxXGZzMj BcbGFuZzEwMzNcaGljaFx hGDcgDsHoTFInBPiuL2qg EjLcI2EjJQRgIkWgvQHqZ 3ojU80rx3wuBPWtK73saA 9yI11nnIDdsnHnImtmlZB 5QiBDZsAaKUOgb1PwfMKh lfAyalGbxAM2YCCaOQQwX J5ulJhnixXijaG9sXR5xD lvbiwgcGxlYXNlIGZvcnd ggxTgWTXrj8R6EC6rSTOk QDDgXNGst9kjW8twdjXcf 5P9JGJfMFGcMIJMkkr9SJ HciZN0WF5zVYFjeRDpBR7 lZGljYWwgQnJhbmNoIEN5 vZ1bFMLtx9qvX7fdMSJnh 9GljX2cmIWed9RlhOSevG f5oSPcn4L1phZdG2XpdEV rlU2mUEOcDVQgZNocZCBb SCJsJhLssCHsCWCkrf23D PG1WeCxt2Q8CSWqCfRmKD OgBU7pnDouMWQmOM8pPBL sE7kxoS0phpi8RnVdFBTv BbZ1UYLtqjZ9Ztz2JNWoE Hnsk6mdh0YoM6BdxSOlrH e3p4voHWVwAvC0lXPtDQb sA4iernZeuEXqVTOxHTt2 nU98XIDemC7krDNsHArsf qOvZaC9AGiuIOYtHlX9YP QisSWwNUIpR8fnXDHoKIi vXSGeQFbdfYYdWIA9xIxy j9D7cLSzdZGsfLegJjWrI yNsUTCOp9NjSPn7tCgpN2 QeZPAmFzD0mWAcEXHsZBl vQJEpGYZyvvF1jK37GDlk nfJ3pAAzm5Qfx89ac458h I4boSUhRZX7CBViDLWpeJ DmVPSjNWP8ELRqoWSqW8b nDSTjQX7mvthoSVziHQby WMQolHW3ZACuoBYpW5WwU HLkHWfuBQFunel1TuLcQj 9dkSPieIqjIBlzp1bbq7f evPXyHyn3SGXdLjUcRzmm KQptw3Qxl0rxENAkyf84e JDtxUUmlRAnvc1uszKhlS AasHVaDGC8pTIavpWlVVN abUNhCKTtZE8krJDuGMVy sS2rosroNBAsVzUmbtgnK YQpkLqmxtOgYo9tsOpnCE B9GXwaU1judB7sVsI0AKz sJ2xzdF6lHSv2ZNzzgGN2 NTDjcG5zWP4qzjfrf3urU RxnHGchJTIiazK7naO7WB BybXBrF9BatD0nVAJcBF8 xjqhku7snRFV4RWnrMPEe CJC0VlRwSJYms0Jhywl8O vGzr4XitWEaDMgzJ48kb1 51PQSlvsOvY5zbeRNdrhy muEPmbiefHZwkpiH5MMPl ygSlt9TvHMBvATV8YHkpI DftkIKlMAYhdBpnu7xyL9 RscGFyXHBsYWluXGYxXGZ zMjBcbGFuZzEwMzNcaGlj aFxmMVxkYmNoXGYxXGxvY 6dhRtEgM1RbRFNiEiLqtD JnA4cavUDxGRjzxFA9DWH xOVSbx84zoVi2YHHcvvey g5MkIQKzzQPawPNvfB9uo jYff3ljVJDwRPPkNZIaJ6 QjGID5kSLuSXCvkTHeaMT 8DV7vnjYyRQ6qGAFoTlpj cmVzaWRlbnRzLCBmZWxsb 5zkWI6hXDPnwElybT9ukN W8WIKhz9cjmHSgtLDvi1t wv1BpecOyCIdkDLEpYUox NSIfLWQcFH4oHAPrkWAsw bIqa7J4FrnmqTXbnbepCM xmczIwXGxhbmcxMDMzXGh qN7utBmQfZEFtyVzeUNgh h6CuDJZdGCXgQgopctEbA HBhclxwYXJccGFyXHNhMT JzRBHzJeH0QQYsiTJehHF wyAmthT1oVsSlNcUeDQxt nUYpyefuAWjuinM6FDxny qtoAIXiHJodX9vaDvRdCZ MecKzzCBrfq3MrUSAsXFK qXjgjbvE3QKv5rwGmGRUp vXibaL7ueZN3HECiz9Kov 2Ouc32kzHXeu17qj82usm MtqYYmTo9whWOtMTC5DII TRQUpAIRjK4ZbHQZnfZwf D2HxoHJpCHBzCbViJCo1i JPdLiXkKYpgbEKNm3B6wQ rwAZPeD2OmUUXdvAqxEFN FZFf2EWizFCZjOBuyYJHl XGZzMjBcbGFuZzEwMzNca GljaFxmMVxkYmNoXGYxXG jeI7mbHjIzH4NcBVUuCeT qgOJgV3kcoLRqsL4= LMP (test code = [id number]) Educational Note (test code = [id number]) q1mkyIKlLRLqeZLvOyFoN BUqFPXvy5lkOWGszUEmQs EwMzNcZnRuYmpcdWMxXGR xPcNrq1awn157cDQtm3rz BWYjFxO3kTAeUIZqfCIiI 256UURnTCsta5zad0EyAV PveEQdt7K3SGCZdlbwmAx 1mSgdA60cc0F8QuraC9ug MLYvFHXdV3NzDR0dCVRaH yn8ZVK5GBP8JYDaODV8OA xncmVlbjEyOFxibHVlNjQ wL6haAJCfJUzrKHXjONxd iXZuPLX6cJeic7Z8tUEyb GVldHtcZjBcZnMyNCBOb3 QuKKr3bBdkB3ImCGKbHiY 1bHQgUGFyYWdyYXBoIEZv tzD0sJ99SZfrvfM3iBNwr 2Qwn50mf148kZ6jlGWnHD A6XHQcXVBxjVIbQJCtWSX 8GGKdsBWiT7evTNmvSJ4s jaxlYYI9KWxoCSJrqRifQ FxtYXJnYjBcaGVhZGVyeT svTQjpu698ZNR3XjJkWG2 aF4Boj5Z7bM8jeGGgIQIz rVDmZjBaYHGoqy0wfCQwG QdzLSP1IWAqbfDkj1Eph0 pjQbStriCjG4wnS5BfFIJ vTIRyWHDbNeMljyOaa7Qc q7ScsIHiaNd5z6ddCKLjY LKuxAawx1bsZBZ2XALuM6 K8eHAck7vxKUclJZNjoYT 9ptImXMBsyZAuI6LtpF5c ORkgYG5xjfn8k2ehYnSbD G1kxwrhk4ubXKmhHDFbYX D9BpPmJQSyr3PdfvsiImL vo4MpqZYcWHsiY38wu803 FOQgbxIzR4ephHTuxwxjc FUmdfmiJPtaztP9ANGhXY BsYWluXGYxXGZzMjJcbGF uZzEwMzNcaGljaFxmMVxk EfBvYFQgCHciW0urOqSyI 2SrPPEeAiSuvRRRSJN0wX JusHLgzXHfkL0rmEKqQZJ gEXGqq9FdWTbbWOKhd6Vg UCWxmF9cJGBfe3LpfCLbq OKsnBd3SNDgskHxxVVwsU 92tcRjWX1pTBJdHGAuMRX fqpCksXJqm7IcDsEFuXMt wLLiqZIiAAJnWG0qrB3nP DXotxIdYUX2nLGei2qmQW Adu3UnEznroZN6KK9rBKT elJMvCR0cG7V8aDKrNEPb NGSxEAueEF9fh8EojBm5D VRdGGO5tRDcWuWbQpHtzA lahcVlTZ7rnZumCvAfebB iKn6snP25OTPqCA4xJDFe KWuytQIwmdSrJKKhmH8gL 1GhUGHmH32yGFAaKMUpdB 2iaP2lwyTgkdAwruNmq89 oUL7lPBCjgF1oxYdomK2i emUgdGhlIGVmZmVjdCBvZ fUsJJdoEHFfOPvnhNv2NO HcXOO5zXWfGdFxOF68huJ lGNSzKY23XXCdw8FqORDm HKAcWH2xbjSoTRM3ikApi 61xwDn4NImahTApuE0fML lhdGVseSBpZiBzaGUgZXh pBOFhCD6qHAMrAJ56DTFy ZVbvwFLbhoVvLQCnhS2nP 1PvABGiR93lEHKkVGUqmS 9ayR1ocpuogaNdMSLxmFV zcyBvZiBhbnkgUGFwIFRl f9JfacBmjVz6WtczvRVcg lxmMVxmczIyXGxhbmcxMD VhMVgnV1lhUpIqAZNobXq fSDgss3XlPOMjTDTcHbRn dJGfMXSzwhIqaXncgI7bJ jBcZnMyNFxwbGFpblxmMV okkkO1RNAxri4= Embedded Images (test code = [id number]) [facility] [id number] 17:15:00* Test Item Value Reference Range Interpretation Comme nts Case Report (test code = 5202232710) Gynecologic Cytology ?Case: [id number] ? Authorizing Provider: ?Boston Ponce MD ?Collected: ? 08/06/2019 0927 ?Ordering Location: ? ? [facility] ?Received: ?08/07/2019 0000 ? [facility] [place] ? First Screen: ?Victor, Yohana E. ? Pathologist: ? Rafaela Marcial MD ? Specimen: ? ?Liquid Based Pap Preparation, CERVIX ? Clinical Information (test code = 0254238248) no hx of pap Specimen Adequacy (test code = 31347-0) Satisfactory for Evaluation(Endocervic al/Transformation Zone Component Present) Interpretation (test code = 92660-1) Atypical squamous cells of undetermined significance, cannot exclude high grade Comments (test code = 4206004304) f5xzsRDeXHMgi3wwYVOuz GFuZzEwMzNcZnRuYmpcdW LxIGtmzePwNYxhk1SqR9B yMjAwMFxhbnNpXGRlZmxh ltdqNGLwUVI3fqWcZPOxA EhmJFJqJHwvUr9wjPNimI bgQnYqWDHuh4naxzCVtdv zsVh8l0xvISUgCqM9lVTe LVvuJ3hedmTzlXXyLVYgA Io3sA24HLRwlP4oiXDdMQ tccmVkMFxncmVlbjBcYmx 4FIOfX4dyJMVvHXBaR6Dj OX3vMEIuZvs7FHN5XSH2p Tcel4V6mMZqqYKspUxnHb VrMlQbYFJMi9CrHXc7oXa rK2AfXSMpNlM5cFYrDEPk YXrgSRYwRIHplzC0vL34E XszprD8eNBjo5Xvk79gl4 42uJ3exBWmWHE6HTBpKWE hsGBbKRTzFXT7ITVxiNWi E4ufWIcxGR4jpsrlBXF2F FxtYXJndDcyMFxtYXJnYj LspVNvIPKitZyyHHsnr44 9KKX3LaQzGL6yC4Ixd8Y4 lH3qgADyTTCcxJWsEnPcB SSihi1muCXiPBaht9MuKF M9laK0pGPhpAFfUHKkHO5 4Uwolq2MwCmvqWOD7EZUp qfUqw4YaIOB7zu3gpFIct RukobIthTAnAYrhE1BlQD Dmx862OLOhJ3VzWAYkj8M 8miGnFfCvAJLluVJ1ebC2 HNFjSKc5lXRuorM5xeGug VWrA6ojdE3vZJkwRK6iea tsx4xbXFJ4TLlcAEBlsWV 0sfbmDKncYXDqJeI5doPq nRKcRPGceQkmAUgri573J HE5OvGuVOFxz3CrQ6EgeM gkW88deZhyL11jCOVanCs tmK9uzOexiI2nVlBxMyGy MFxxbFxwbGFpblxmMFxmc zIwXHBsYWluXGYxXGZzMj BcbGFuZzEwMzNcaGljaFx dMZqkVqClPVYpNMfjU6eu TyUtE1MrYAGuVfAnxXFvV 9hpA87ev4wrVBAwK84obT 3cH53taHUbfjQnNjzzqQV 5UvAVDkLzZOLon1NajKTd phHfreCskNL1OTHpJYFkV F3vaYigfyLiqqU4wAM6hT lvbiwgcGxlYXNlIGZvcnd rdwVmTRDed1X4TI5lISCf JPTzVOAtu8iiB4qaptZfl 4N2JIMnJSLnJJXCenw5WY NbiVU4YW7eNBWqxMWkPC8 lZGljYWwgQnJhbmNoIEN5 bR1fHOXfs4mcY8bzJVJhy 3FalE7xvKVhw7TmyRIhyL p6yKYyn3C2ylJyZ6DvoAO ncF1iQFQpMWXwUMllLMIe HPLwTtZyvMTbGEYmgy79D PV7HpEpz4R9TQPvIaPyBA XkSM5zyEvwLMUjBA9dHPG vA8fmtI4zavf4FbJvTTLt ClW1TFXnhtQ2Rsb0IPKeR Zgtj0aco4MbQ9TpyDNjoR m3y6jlWLKpIvU1gRDjNUj tA3kuvkAgsSLdEOCqUIl9 bR65VSUxuS5yaZEyOOpzy pViQgK6LLdzLRKrFqV3HZ OuqGJrVBRhX7glCVTgFDl uVCLyFLgktDGvSEI6gVoy s0T2wAEuyEDioNniFeGkU bMrTIAFr1OwDGh7xIzeR7 TvYDWqEnV7mTQgVIKwPBz pGAClVVOzutQ4eG39WNpw ppJ6fJAkk1Cau50nk092l I0twJTcZYY3FKNkGYXvsA EpKIQaZXS1OTPwvXCjA3w wCEPxZQ1knplxEUrcDTuo EKDirYK0KRAayRBoY6TgL APtEYjfADDznsz9AtKeEu 6clOGfpCutYPnkm6asb0p bkIIpHge3ARSjDqNwCdhd FKqmb5Wik7dpWHZpzs74k KQjxETkiRBckp7ycyZgcM KmoDAkLBT7zKBvvcOmKNT hhJRwFFPqSA5xfUDpNBLd xJ8clklqUAOzNuZtnbxvQ CAskZfmscWlOf2agJiqNR L9OOwdI5fsoT6dKiD7EWy lN1asuE8oUPm5LLvuxCI2 EGRynE3bTD7dsqkbf6amY OvaJVniFSQqmlN2mxV2AQ OypVVmT5ZxdZ7lOJXoUM5 abgkyk5lqFPA5FLqeGBBf ZAP5VqQtCBJjc9Tijsr2Y gEwn9QwzLDdAYerL50mg3 81APMzgqAvT9ivuGUqpey fbXSeeaocKUstgxY4ANTr pfMgm3BlKYKxHBJ8AHbtP YcwsKBhXNHrkAaux1ktI3 RscGFyXHBsYWluXGYxXGZ zMjBcbGFuZzEwMzNcaGlj aFxmMVxkYmNoXGYxXGxvY 8uzAiAcY6RpOBDcByZcpP QcO3bgpAQsNUcmxIF9AUH xOTVdk78ypTw3TZMjeohh s2SkRPBhoYNnaNXsiP4fb mSsc2rkVFNwXHCjOXCsG6 VgRUZ0iFKsREOduTRikOF 7OL7nffVrZJ0pXMDeWnxm cmVzaWRlbnRzLCBmZWxsb 5brWX2iHCWoqGflvR1xoW P0RPEgo8vkbSWzgEAwj7h nd9BbaqUtLSxoADDkXUnb XXAdLWUtQQ3nTIZsuASld pEmt9T6HchpbZUtdhobLI xmczIwXGxhbmcxMDMzXGh tZ6hcXhIgCMLqtAhlBXhj s2XbEJSoOUWdYaxkqnPjZ HBhclxwYXJccGFyXHNhMT LwOMUjGtA9LLAfcMTmhPD znAmrfH4dKvMtIvMyDVwh xGNmiwnoHJiefpI1QEall gdbAFQgXBafU0zoBqHvZI YsrAubNTnez3YiDEVyWIG nBefrbqH6QEm6tpFqSWRx vCznqG8hrYJ0VQGtn7Gim 9Rpe91vyRUgg26wk21lkd SnnBRbHd2xzFAuLVF4GEL FHGTfLZEcU5CtKQQtvGly A7EcqORwVCKeDaJnCHd1b DCrGxPwZTjpnIJDk6Z8jV trFKAzR3ByJXDxnNkhKWX GQWh0VQhdLQVtSFdxLZKo XGZzMjBcbGFuZzEwMzNca GljaFxmMVxkYmNoXGYxXG gnV7sfUgOfM6RdFVWqBrD hcYScH3osqPWmmJ9= LMP (test code = 9335600873) Educational Note (test code = 9907630514) t2wnvZInLGJvqDHwLfYtR ZDrMNRwp0guJSHrxWCfBp EwMzNcZnRuYmpcdWMxXGR oNcSmm1llf785xUSdi5ik RUJwJwN8hYPeYKRdhHInG 707VOUfXSpss9xws7TnVI UwaYNpl9P3LWBIvmynnEo 6sRjgS45sk3J9SojuZ6li IIZsLBJyF1TfPZ3jSJGnT vl9YDB9MOE1TEZlJGU2BE xncmVlbjEyOFxibHVlNjQ xZ3ffTVWmIBprXUWnWYaq lFWfVWK4cNrji4B3pLPcr GVldHtcZjBcZnMyNCBOb3 SnLOw4dSlaI8SpNXEaBqV 1bHQgUGFyYWdyYXBoIEZv uaM6kD55QCfnanK3tIMta 0Ecf48rm406jU4etRGkCI F4UAOiUIXqfMGoNRNiFJJ 8FQLosBZzA8wgUVoqJQ3f efwaSCS2OZzeOGDkaFjiP FxtYXJnYjBcaGVhZGVyeT xtOQycy940JWQ9MyFrWR5 bD9Sao5T3eC6qtMShYRPe xKNoTvOfJOZmvj3pvGSzK EoeXTL3RCRysvRwg8Foh0 heSoPcctHaX6npN9IwBKX pOSXaCWZwBiAwnrOfg8Lx r4GtnYQmzGp0x5duJPYkH TCehOmvd6ubIYY1ARXlK0 N8tDXve4dkOXitZULqgKR 0zpSoEQJrhSFqS2HxzN3q ZLywWA4hewr4b0yaEjCkI C2cltftf4tqUUqvIPBsZB R0LxYuVTPtl5EgwtlpFaF sx2PenYTjLIyyU42mk446 ULRgrfBvE9mpzHOfimkxr ANdlwntOSpkpsZ5CTHqEL BsYWluXGYxXGZzMjJcbGF uZzEwMzNcaGljaFxmMVxk UgQwNTWhXZymQ5pnNgRrH 7NrHXMuGfLfqZNAOEF0pX VvnFEovISesT1vgFLuQHM pUOXmw4LeXGbvGAIqn2Eb UHOhxV4oMUBbv4RteTXwg GEvbNt5KIUanaOhjDVvlI 45gsNkDZ6ySKFvCHZvXXW uaxOeeCTrj2LnOvGYcDVn nTXxrARoVULwSU5xsF8gP DNmcpWaQYC3cRWue8yaCF Vvl7KoQxpgqDO0SM5dUAK tqYIwWN1eS1J3bMTpOJYa OKOwBGrtGL8go5UifEp9H TGxQBD2tUOyGbKdFlKlqS lwzrQtJE1biGlyOjUxeaK pFs5auO34VRCqMR0jIPFn SSzsoNOsvyYaVYBwnS5bD 6ApGPCmP21hTNYlCVRzpU 1gvJ4xwsQlskKajuJpc35 sUT8lCBHlzK6emOjkaI1x emUgdGhlIGVmZmVjdCBvZ xPaKGgfQKDwASysqQj6QJ JaCNJ3dWUnQsBdPN58raV uFLVgMM59IZNeh9IxMHBh RXShYY9kpcBjBEH0dgPiz 05hkPi7DWhiqWFocM8xSA lhdGVseSBpZiBzaGUgZXh xFPFjVN2vUEYeGT05SAOg KQjrrTSkklZuMKRraR2dK 6JhRJOpO59iDJLgHURydR 6ouG9qdfydrnFsUGIsuNK zcyBvZiBhbnkgUGFwIFRl b4AfuyGbaAq4DsggfSUuw lxmMVxmczIyXGxhbmcxMD BeVBpsF5mrUbQwJGRvsCe dWHkja4FqEIZePFPpDdCo xQFgZZEbwuQxoFvmsP2qF jBcZnMyNFxwbGFpblxmMV yistG2TYSzws7= Embedded Images (test code = [id number]) [facility] ONLY PAP SMEAR-LIQUID [id number] 17:15:00* Test Item Value Reference Range Interpretation Comme nts Case Report (test code = 5314636143) Gynecologic Cytology ?Case: [id number] ? Authorizing Provider: ?Boston Ponce MD ?Collected: ? 08/06/2019926 ?Ordering Location: ? ? [facility] ?Received: ?08/07/2019 0000 ? [facility] [place] ? First Screen: ?Victor, Yohana Chandler. ? Pathologist: ? Rafaela Marcial MD ? Specimen: ? ?Liquid Based Pap Preparation, CERVIX ? Clinical Information (test code = 1690761029) no hx of pap Specimen Adequacy (test code = 91990-9) Satisfactory for Evaluation(Endocervic al/Transformation Zone Component Present) Interpretation (test code = 09590-8) Atypical squamous cells of undetermined significance, cannot exclude high grade Comments (test code = 7189668146) [id number] GFuZzEwMzNcZnRuYmpcdW FhYXhjhpUsCUxfn5XtO9U yMjAwMFxhbnNpXGRlZmxh nfudUBScIZS4ghBpVKSwO PokKMAmBTnfCy3tnABqyT fkLcMvGRZvh1vpvwPUusm pyNt0p7lbQGPvWkR7yPTe OKsyT7snrdIuaBRwZXLyI So5nB06BVXxbY0qxZUcHK tccmVkMFxncmVlbjBcYmx 2CQKnX3wlAPSfYBFrO3Gh EN0eZKVzEwk1PIX7NLK1j Mynq7N8zRYcgMLwqNomGt KsZkUvTOIVj7VhIWd5wXr hB3YiDSUcFdW1kVEzDITa SUpcISBxJNDyvdK4oL24M EickmW1tZXon4Niv93xu9 81yG3hwGTpECA9MZTbLXU cdBQxZHYsXFG2JENotRUv J6vsXIgbET7rqlltQVT2F FxtYXJndDcyMFxtYXJnYj NmgDAzOYCkfAdlIRjfd61 2RMG4GgMsQG2hX1Zqs4O3 rV2tmGKhSXPcoPBjLfSrF GFwoe2yeVAqEQbis6AsBU Y6tyM4pFQbpLOxFNQlYU5 7Mgdsv5IcSltxMSL4PYBg hiLdc7TxSKZ2lh8lgNGlg HakegCkmCQwIZheI4UeTF Bge168KGWcU4BfZWGqd4X 8eqSzGvWgSHDhdWN3zsL2 DQUdAYw4gPOazkF5evLai CAcS1cuxZ2sTGhhGD3hff uij1dpFMG8MSlkQYUgzMA 9kvqhADeiROMbPzT8kxTg cRXxSOUsoKucUIjve018B QX1MfFwJACle5CvC0KidN peZ71zzUhnO93gOBEdcTt auP7mwYwguU1eIyTcKzMb MFxxbFxwbGFpblxmMFxmc zIwXHBsYWluXGYxXGZzMj BcbGFuZzEwMzNcaGljaFx aBVakQoFuYIWfGTbgH0be DqYnK4SeFZMiHcFmgYWqU 0nlB87it5esLOLoR12adG 4rG30vdMIicvHwHygygPC 3EcRWQxKlCRPsr1NndBSb dhUesmVbyXY4YALdOAAeJ E0ccUuzbxWasiU9gBU5aC lvbiwgcGxlYXNlIGZvcnd hutMiSZVat0P4IY4iCOYn SPKqSLAwq3odI3dcfnAza 5I1CIYqHBSqPTTNfbt8SH FzdEP3TX5zAEWwqNGoIY3 lZGljYWwgQnJhbmNoIEN5 hR8tQRIxw1qwS9keEOXnv 5YeyF8cgRRmz5GurXAuuV f5pHGba8B5oqBzY1XwmGF zdT3sMKWgIKPnGRndRFRb FJVpPkKdqIMmQICxfc74O PP3MyXwk2S3OSMfEvOcVL XpKO3uiTmmNDYzVI2bNAT xE5pheH6qjns9DqMaWXWy RuB9HJPtxxS5Bwd6CLKlK Isoy2qqg3CzR4RjcEQtbW i4j6jeVHVfVnL7gSEwRSa cL5ljenIwjMVhTYWzCQr9 gF70VKSlnZ2rtDBzFXctc gMiHjH3ERrhOSXwGwY3MT CgrFNkXJOwM0naDLHkROd yLLYaDTthoUJkTSL8nOuc n3G3tAMnrUBlfAkeAjOhH tPgPUFMi8MhTZs1gJzjE9 YwEUZhHgI4vFIaCRFaYGb jMDScANWrbjL1gO68BEdm aaP1hSOfw4Clc89vd354e D0drOViIHF1NFHpVZCeyC WkHSYsABI9LGFdhEYkK2e gPWFfZI2neszxHBdkRFnv KNPzwPS5IVRbvIPkH4UeR AVmGIczIDCurzq4CqYbIv 4ceCDnsBvzEKsrt2qvz5m rjVLxAcr4ZSErYeQrVpzy SKmpc2Wwl8rdWRBeuv24k SLfcVKgzWXell8vcuDguK YsfBVmESI4rETibjHfBJJ ycXGyTVKvJU9aoUKvUYRy cC5foqcuFVYcPyHkgzjdJ EAjqOmuyhBpZf7ucLzkLJ Y5FPsxQ8zplS9xEgI5GCa aJ6xyxN5jMXz2KRrhhMD8 KZLpuO4iCJ1upmwyt3fnB JfnPVsuVGThdmK4bhM9IM TktYIcN1RwaR1cNPVjCY1 islvku0ojEVV5CJjlWUXq LNN5EeOoNQThk3Vzljv4R gCrt2XsuSDxUStfE92wv7 09WLBqrmHlT9esqVKaczq ntDLsdmyaHPlnuzZ0RCCf gfFpk3YaGHOzFXE7UOiwB DtlpZIgMHNenGruf2tcN0 RscGFyXHBsYWluXGYxXGZ zMjBcbGFuZzEwMzNcaGlj aFxmMVxkYmNoXGYxXGxvY 8meHzZaA1UkSBWjNdAznI MkH1igcFPnJMymdPU7WNF qQARkt79glXm0OPDvfijd j9ZbKAVrwHUziSIpaK7nc zQhv9kcXLCjQQUeQOPqC0 FdFJX5fLHlAUVpsDLcgGK 4ZH3luoVmTF6zXALgInvc cmVzaWRlbnRzLCBmZWxsb 2raHI9rPGGtpHaixL0rhC H3EISpg7ppzAWikDQql7q rl8UrfgEuMTwnFQOyRKyb LINbNHXmZQ6qLQQaeDTso dBae3M3RxzkuFQamaxyQJ xmczIwXGxhbmcxMDMzXGh xT6xdLgYwOLUgtVzoKLyw q9SrLNUmLRSzQdegjwSfY HBhclxwYXJccGFyXHNhMT WwWKVcMnZ5XXTrmQEjqCT fsOzqwF1sCjEvHfEoIIsn vMXxpnipHNeqmgJ6IObpq upoQXQcTYddX9nvVqLlDD LzeBtuXMarm0HmNRJkVUU bEabsfjT1PBp2hzCaOALj oYtleE3miMR1RCVoh5Hsn 7Znq72xyAIbs40lo02ato XljCSlQo5guLBdTHF0LOL VQHKwLYMaN6ViKHCpiPmr R5HrtDIoRYCbBrVlPJe6i BEdJcMnXUopwQFZg7W7nY ebFLUoR9OlGGXyqUyuDIN IBTj5TReaAGRvHOunCTLu XGZzMjBcbGFuZzEwMzNca GljaFxmMVxkYmNoXGYxXG rkJ1rnWhWpI1WhVTUlYrJ xbZGuH3sslQWxuT0= LMP (test code = [id number]) Educational Note (test code = [id number]) w5hzlDTeJHGwzKFoUoDqT BHrUHDgs0ttUQQdiDCoKw EwMzNcZnRuYmpcdWMxXGR oByPws9yip549zBAks6kf JPJiTfT3mQCfEKDmuBCzM 387OKTpTNwix2kya9NcMD MxvXMms4N2WOIEtzytxDq 5fDrbX50ms8T5RxnfR4vm YJEgNTVeK4ReXL8oVFBoT nb2EPA6KRS4KPLaPOV1SP xncmVlbjEyOFxibHVlNjQ fU2spOEZrCOxiBFJhMAer cPMhOZP5oEcxt3D6uBKxn GVldHtcZjBcZnMyNCBOb3 AtSDh8hRepK7HyKISdAiK 1bHQgUGFyYWdyYXBoIEZv viD0jL60YDrowrU2jHOtl 2Udk16nz292mM6fjYVxFO N6UYBlAVQuuWBqGECpZRH 5CNOfbNYmZ1lcAHriQN2z jlsxNLJ4YPrxYXLxiPhlS FxtYXJnYjBcaGVhZGVyeT kuAIhhd782FNG0PfAiPW7 jT2Izm6V5qN1oxNEvVPBp fNAjGhYeFKPozi9beTMzV EmlCSF3LCSoksFcg7Vij9 qeOyTxlgEeI9ctG4IcZCK oZAZsTVLpUuLpkaXit6Bl h1TinBGakNh6v0tqEZRcJ YJnxGhgf0grCQV1BFYmG2 O1wXTup3gbYKuaBOWslZL 8yzScTXFooHDpE2NluU0i OThsSZ5bqlr3f6vzYdKhM Q4iujtlp1bfYIunYNOuDQ T5KiEwMQWxs8LclrunHdQ gr6YieTCqLGjtA60un118 RMOhmlOgQ9dhwZAzvzqtn TOnupcaBOsiqzG8UWWhCM BsYWluXGYxXGZzMjJcbGF uZzEwMzNcaGljaFxmMVxk UqLeOCKyGCsqJ9rwVxTlX 2AlCNIsCdBlzMBIFUJ3kN AolOVqbUQkmX0fsEWdAJC gRFWrc9IkJHcuJIVdt6Fs OKFfxJ2yJVNce0NchGDzn RPgoUo2WWIonlVtyFFkbS 62dbWkUS5fEEQrVIHhVCE cfoBlaEGjg8PsCxYUiEJo uLVabDJmNIXgDU5hsX2qR YCjgdYrLHS7xDCmf8uwXG Xdm1DdIheghJQ2IM3lWQZ wqGTyXO9rB5G7qJVpLRZm OVKhYWgqOQ0ne5CogRa9C HTlSEZ7pBFuDoTqLyXiiT ogqmEuKP1idXwqAtFgwpB lIo4xtF70GOIqYT4iYJKw GQjqaUYoqiHpSOJpbC0aW 6ZrGRXyM99wTFCuEZFjmJ 7iyE9hzsMtxfVftdVhp00 rJQ3vXLIcrK4wuNhnfA4i emUgdGhlIGVmZmVjdCBvZ wGdKVwxOXUjKCzdxAs7BR OjKHV3wVYzByQhJH97amI fSNJcVL91UKMhx2RwWTVz BKNaPF2jfcTeMHN2whYoe 38mzSc8JJjnsYSneT1wIH lhdGVseSBpZiBzaGUgZXh dNHKjOL8nONDlXY34VGMb OSssqWUcpdBrIAUlqV1jS 3DvMUNmL88mDLZiHZAeeH 7yhF6gcnizhiZaQCDpdOM zcyBvZiBhbnkgUGFwIFRl u2VlkcOwgJn7QzcfwKSdq lxmMVxmczIyXGxhbmcxMD TeUEhmP4mxJtYkHWHliGe mRSlvz6UxRETkSCOlLmEe fAPsFQKqgeSohAzzqW3aH jBcZnMyNFxwbGFpblxmMV lrgzY1SEJtus2= Embedded Images (test code = 3394388792) [facility] ONLY PAP SMEAR-LIQUID [id number] 17:15:00* Test Item Value Reference Range Interpretation Comme nts Case Report (test code = 1467768293) Gynecologic Cytology ?Case: [id number] ? Authorizing Provider: ?Boston Ponce MD ?Collected: ? 08/06/2019 09 ?Ordering Location: ? ? [facility] ?Received: ?08/07/2019 0000 ? [facility] [place] ? First Screen: ?Victor, Yohana E. ? Pathologist: ? Rafaela Marcial MD ? Specimen: ? ?Liquid Based Pap Preparation, CERVIX ? Clinical Information (test code = 7100807929) no hx of pap Specimen Adequacy (test code = 13827-3) Satisfactory for Evaluation(Endocervic al/Transformation Zone Component Present) Interpretation (test code = 02775-3) Atypical squamous cells of undetermined significance, cannot exclude high grade Comments (test code = 8638693399) j6zejRUzNEIjc0jyCFObq GFuZzEwMzNcZnRuYmpcdW EgJSgklkEqZOgpp2CrR4X yMjAwMFxhbnNpXGRlZmxh rrrtVNHuBOP6osGwSYNkL HrnZMGjUUobQx2bxSHudH zrCtDrIZLbj6xbeuKSnkj tiSf5x6wiMBDaSuO4oOAp OQkiH9smzgNicKDmIHJzF Mw7eU06ZJIqlV7htFWfTZ tccmVkMFxncmVlbjBcYmx 7XOCgW0hbDAAlEFBiS9Nz WM4vRMHfXtc5BQP4ZWQ1o Yclv0S3wHQgdKGasXruIs AxXlQsYSBGn4GqPMt3sEw dK3OcHYCbKnT0kUZkBENq NGypHXPrSFFilyI5mQ66Z CvdvfN5hDZxn8Loe71fg2 78rO3jqGIdYPI6BQVdGXE koROgVZDuQMP6MEEqwNTr N4yuOOjeJA0fhblrKKR0A FxtYXJndDcyMFxtYXJnYj IsbQXsEMClgUcvQPpza71 4SPC2RnToUY4uP0Dzq2E4 tF4vcDFyFKKlkAWaWvEqQ RCvhq6piWFlXPzws7NzCO T6cjG9tSThrXOvMJVrRV7 7Tuhrf4WyRvhyOHJ6OOBt miZou8HnNBY6ko6lmAIns UkyaePvzUThQFyeZ1LrHK Ljl219HAVdJ3CaPKDvc7P 1ktEcHoFfCYJdnVE7vnQ5 YIAlDSt4tEFsocZ3dnPyf FMfK4thuH8vASvgWV4sho zxv2ktCHL7QEqtXBOcdWA 8mkqaRUhgSKWlLxB3ewKc fOTsARJymFcvLXyuj237T UE9RnVlCUMak1TeV8YztK dsA58quTagL12aTRMbxMl eeG9ucAxktP6dTuMeJkGn MFxxbFxwbGFpblxmMFxmc zIwXHBsYWluXGYxXGZzMj BcbGFuZzEwMzNcaGljaFx uPSkvNaAjTYXvSItdM3ep HzPjO5FnSYCsLgOudBEoO 9taI33zz2qhVWVwH26slW 2sF72evEQrngUuOlefyMN 6MwRGLwGxTTXxm1AtiEAk umCouwImzUW4THGdQABjN Y1ruHfnyuGleoL9dXT8qY lvbiwgcGxlYXNlIGZvcnd uvjLtWSQih1K2QU5yEYAx SDBnILWyc3fbT4sxyfJns 2N4WXWxXOCvXJVElac8MN XzrGV7KC5nBHKigRYnTE0 lZGljYWwgQnJhbmNoIEN5 uE7eOKOht2utO6gmNYZup 2WqaC0tfERoe2XjzDZquJ x2aEIeg2V4xpIgP9XutOC lvP2kFPMkDAElNJtnXCHv TQVpLiKkrAVfGRYxqj49Q FU8JhQns0K8NSKuXxMaST FoDY6zmRoqUXVvYQ3sMBQ vL7zrmW3ajgz9XqAhJMQu TvA6JTYmihQ1Bot5IQCyU Svrq8xar8MyZ2BxtAGdsN g0b7gcNKAcGoR8dTWtMTc bA5snxvQorPVvISXaKKe3 fR74FJUgnA4syFRpLRhvb dZoAtV4LHwzQRChKbB1ZW SymDWvVIDoS4qbOYDkAFh eTPYsKGqyvVRnAYT4kVpr d7Q3tGQzkNXfzKsqYqXbU gEeVROMg4GbMLl5mJvuE9 NvUIJjZgY3kJKiWZTxJRs vRSJaTRArgdE4pM95PPsm keM4wXTyv9Xvh80vf616n T7jePPeYAV2FYDnDKFxyN InWHTdBIT7RNSdzDKdS4o rSUFbUE0oakyxZJyiVLbt KOQygWY0CBPgmQAtT5RiB MZeSBypIFIhopi9CpRlSw 1uxKYnnHvaNDuze1qai4h hbQJfLqb5RJSeUoQzUegg FRjer8Cqe9keTAAgmd18i IOujHGzbLCxez7criIodC PheBKcWWR1aXZmloQsLEC fuEGdSCSaFE0wuNFjPVFs xQ1ogwlwFAPcSbWaiemjQ RJweVypcbYtYg6laFjqBR O8DAxyP5vrvM5hKhT8IUx cR0yzqJ7hEXo8KMgarGB0 IJPkhF9aPO6rwtcqi5stX NqpJYwwYYWcdlP5spQ2IP HmrTOqF1ZfsY2nVKFzJD6 emnmue8znBWC7CRyyPAMz PZY2UeVfGCOtt7Vxuvb3F lNnv5WewSFcBUkyT72lr6 83YCSbrvDsO3lasLEnlwi dsGUrbwokAMnqbtN5KSOt iuGku0WyUSWuLHH6THcmD CwuwJCiJGMunGsvi7vqM1 RscGFyXHBsYWluXGYxXGZ zMjBcbGFuZzEwMzNcaGlj aFxmMVxkYmNoXGYxXGxvY 2xiHwImW2XnEIDcCyOgnD JsI5dedCTvOQhifTJ0AMG xVXHyp05mhLk7NKDlzcms h8BwGMRpeHHbkKEubO3fc xUty5doKKDhAKKzVPZpL0 DzHVA1iPTkDKEhaUNntJF 6XS5arxJiOF6iLNNhRvcd cmVzaWRlbnRzLCBmZWxsb 7bcQU0hGKAdtVgdaI0qlK G1JMHgr7fwnVHinLGsi6r nb7AppaIbPTinADBoBLer YIPyKQYoYS4bKAAzlKCcq pAfr7T0YiqcfLHahzdeLF xmczIwXGxhbmcxMDMzXGh aX1aaAzXmYJYfhBqzZCpn i2NlZRIgVVUmHmiquwTiE HBhclxwYXJccGFyXHNhMT VcVLCoPiU0EVKxjHPurOT wqAepoN5kUnOiMcDfMSlv dDNjiebaYKbqjnJ2WOrzw cnnGLQlOHabK7vxAmKhGD XfaYlgNLtao2KgUJRtAZS cRlkbliJ6BDm9ufOkNORc fKmfiE9igKT4PTAel4Bcc 9Als99hvJNro36pq78bpg SyhMSuXo1ntXNfNBV3GLZ ZMBSoLBDgS8KsMHZutXbm O7AtrBEfCTFiPpLqWCz4h IXrTiXoDDwlhRWQn8A9pV hsHPSjP5LpFXCcgNlrUYQ UILg6TDmcTZExYOdhXQXg XGZzMjBcbGFuZzEwMzNca GljaFxmMVxkYmNoXGYxXG noK8paCsJmN6RwDQOuXoV czHZrF2eriERwoS7= LMP (test code = 5743734964) Educational Note (test code = 2546597059) l7txvZVoOTIxtUZsQbDpG GXwHQVss3zwWOCuvXVbAt EwMzNcZnRuYmpcdWMxXGR fJhXpy4dkt748mGNaj3eu HDEzZtX6mDGrRNNylBVjM 491UZIhDXvou3xby7TfYA CmnTLtu4J2PGBBfsgxkDv 7oCxvO91ve8Y6AqqtV5iq CVEbKCZaD1SwNZ5zJICgY rc6XQT4UXQ5PCZxQFF9JS xncmVlbjEyOFxibHVlNjQ rJ2eaOWDcRVrkOYAcFFwe sQEwKBN0qByiq1H4rAOeh GVldHtcZjBcZnMyNCBOb3 OeCGt1yNfwV9JzOAUwKdG 1bHQgUGFyYWdyYXBoIEZv ycC0lR42QBkziwG1sTXtm 1Wua74by537zC5ffXJpNX M3FVVwPYMihIWyVNVwTNI 6LZCbrHMeR5znHAdcAA5r htttCZC9ALedBXDhdVyfB FxtYXJnYjBcaGVhZGVyeT joVQcqv820RMW2KcHsZF9 zN9Wqt3V3rD4bcEHiNSVw lJXiWqNfASIslr9cgZIsL JueUXG1WTSorjYcm2Cqt7 iiRqIjooOkY0ecF1PxWCQ mRTZeLFKvSmFejuCzk3Kj t3DffLZkmSc5e7qyKLPnJ BGzmOnda2oiZQX2AZSnK9 D1iAPgx7onKHfjZGKeoXR 2prTnPHCjcSZnS6FjuP9e QQdpKV0vngj4q8vgRlBmW X4sxmokh2wbSUtjIBSqUA C1HpQcPWNjw9VlnjhuXaI sf9XbxKPrFOddZ20hx519 UMOskqKvJ4papRQkiknzz GLglfpgGCkumwE8USYtVM BsYWluXGYxXGZzMjJcbGF uZzEwMzNcaGljaFxmMVxk PrSfGZEtLLntB9knVxXdP 2PcYVIcAyMcwSVRJUE5oI VlzLQwfYKfxS1rfCTfWFT dQYKrd9HdJLgsCMNow3Yo CYAgpJ8vCXYds6TxnLTjt ZRzpOp6KKJikrYruUNcjD 45luBbNQ2vJDIvFCOvQII wccTfxYXgo3PoViZKwMYv uNQimNQfPCXkVD8pnO6fG QRvnqJwTOS4yTIum7wcWG Vfh0BsWlozhBH8AG3eOMC zvRErNT2kR2A9kWJpNGLw FIMlLTywOB4ns8NlcUi5G IUgADQ5vQBlVdZbFxJqkF ywyqBuDA5xxYsgLxSwerY eEy0laJ73VHJxOL2tFUZn OEaglUQnkxGzEHFegE1rB 7YaBFRpF51rOWOhRDOabC 0kvF5uqfCedtNjpbVom61 rFW9pIQXtsM9baFggdM2n emUgdGhlIGVmZmVjdCBvZ kGdYGivZDLtHErdlCm2LI EwNNY2jLBrRyIpEU25kwW uGROlGK02RDBnn1SsCTUo VYEbKB1hjqRwDGW5tpMdj 00ztQb7ZJqvsPVlvC7ePB lhdGVseSBpZiBzaGUgZXh zQUHnPK9hUSTkIP19BLQb RFcopBRcswQuKAWfhN3lB 2AjPAItO43fIELcPNDciT 5efH5lalzyneYzAGXujWZ zcyBvZiBhbnkgUGFwIFRl d1VcstRhcMo0FidsbNYtb lxmMVxmczIyXGxhbmcxMD HoJUgdV8mzZtDnTWDdtIw qFNsxd3EhNOUfVGVdRyMm oRAbPBPjdrUfoNmydM9pC jBcZnMyNFxwbGFpblxmMV rsrcO9HHMlge4= Embedded Images (test code = 5666965171) [facility] AMPLIF[facility] [id number] 19:50:00* Test Item Value Reference Range Interpretation Comme nts C. trachomatis Nucleic Acid (test code = 07073-0) Negative Negative N. gonorrhoeae Nucleic Acid (test code = 51766-9) Negative Negative Lab Interpretation (test cod e = 14200-6) [facility] AMPLIFIED [id number] 19:50:00* Test Item Value Reference Range Interpretation Comme nts C. trachomatis Nucleic Acid (test code = 41847-5) Negative Negative N. gonorrhoeae Nucleic Acid (test code = 00561-7) Negative Negative Lab Interpretation (test cod e = 95709-3) [facility] AMPLIFIED [id number] 19:50:00* Test Item Value Reference Range Interpretation Comme nts C. trachomatis Nucleic Acid (test code = 03076-8) Negative Negative N. gonorrhoeae Nucleic Acid (test code = 67670-3) Negative Negative Lab Interpretation (test cod e = 69959-3) [facility] AMPLIFIED [id number] 19:50:00* Test Item Value Reference Range Interpretation Comme nts C. trachomatis Nucleic Acid (test code = 00573-7) Negative Negative N. gonorrhoeae Nucleic Acid (test code = 77682-9) Negative Negative Lab Interpretation (test cod e = 85049-9) [facility] AMPLIFIED [id number] 19:50:00* Test Item Value Reference Range Interpretation Comme nts C. trachomatis Nucleic Acid (test code = 38845-6) Negative Negative N. gonorrhoeae Nucleic Acid (test code = 20266-6) Negative Negative Lab Interpretation (test cod e = 47812-3) [facility] AMPLIFIED [id number] 19:50:00* Test Item Value Reference Range Interpretation Comme nts C. trachomatis Nucleic Acid (test code = 16472-3) Negative Negative N. gonorrhoeae Nucleic Acid (test code = 43649-0) Negative Negative Lab Interpretation (test cod e = 86614-4) [facility] AMPLIFIED [id number] 19:50:00* Test Item Value Reference Range Interpretation Comme nts C. trachomatis Nucleic Acid (test code = 33311-5) Negative Negative N. gonorrhoeae Nucleic Acid (test code = 18214-8) Negative Negative Lab Interpretation (test cod e = 41034-0) [facility] [id number] 23:19:00* Test Item Value Reference Range Interpretation Comme nts BENZO U (test code = 5174299735) Negative Negative RENEE U (test code = 0469031822) Negative Negative AMPHET (test code = 8376448549) Negative Negative THC (test code = 2173221298) Negative Negative METHADONE (test code = 3965557789) Negative Negative Meth U (test code = 4437957518) Negative Negative OPIATES (test code = 2872837001) Negative Negative Cocaine Metabolite (test code = 9054277813) Negative Negative PROPOXY (test code = 3258809840) Negative Negative Tric U (test code = 8423788201) Negative Negative PCP (test code = 3763205599) Negative Negative OXYCOD (test code = 3823681792) Negative Negative ADELITA (test code = ADELITA) Urine Drug Cutoff Ranges Benzodiazepines: ? ? 150 ng/mLBarbiturates: ?200 ng/mLAmphetamine: ? 500 ng/mLCannabinoids: ?50 ?ng/mLMethadone: ? 200 ng/mLMethamphetamine: ? ? 500 ng/mL Opiates: ? 100 ng/mL or 2000 ng/mLCocaine: ? 150 ng/mLPropoxyphene: ?300 ng/mLTricyclics: ?300 ng/mLOxycodone: ? 100 ng/mLPCP: ? 25 ?ng/mL The results are to be used only for medical (i.e., treatment) purposes. Unconfirmed screening results must not be used for non-medical purposes (e.g., employment testing, legal testing). Lab Interpretation (test code = 75659-4) Normal [facility] - DRUG SCREEN [id number] 23:19:00* Test Item Value Reference Range Interpretation Comme nts BENZO U (test code = 7174045359) Negative Negative RENEE U (test code = 3692886854) Negative Negative AMPHET (test code = 7925316079) Negative Negative THC (test code = 7301598188) Negative Negative METHADONE (test code = 6349631156) Negative Negative Meth U (test code = 5178612742) Negative Negative OPIATES (test code = 0531982064) Negative Negative Cocaine Metabolite (test code = 1711894132) Negative Negative PROPOXY (test code = 4295374279) Negative Negative Tric U (test code = 7763446579) Negative Negative PCP (test code = 6400257144) Negative Negative OXYCOD (test code = 8384818510) Negative Negative ADELITA (test code = ADELITA) Urine Drug Cutoff Ranges Benzodiazepines: ? ? 150 ng/mLBarbiturates: ?200 ng/mLAmphetamine: ? 500 ng/mLCannabinoids: ?50 ?ng/mLMethadone: ? 200 ng/mLMethamphetamine: ? ? 500 ng/mL Opiates: ? 100 ng/mL or 2000 ng/mLCocaine: ? 150 ng/mLPropoxyphene: ?300 ng/mLTricyclics: ?300 ng/mLOxycodone: ? 100 ng/mLPCP: ? 25 ?ng/mL The results are to be used only for medical (i.e., treatment) purposes. Unconfirmed screening results must not be used for non-medical purposes (e.g., employment testing, legal testing). Lab Interpretation (test code = 71964-7) Normal [facility] - DRUG SCREEN [id number] 23:19:00* Test Item Value Reference Range Interpretation Comme nts BENZO U (test code = 4513587784) Negative Negative RENEE U (test code = 7283596762) Negative Negative AMPHET (test code = 9759080471) Negative Negative THC (test code = 8579948334) Negative Negative METHADONE (test code = 5201829195) Negative Negative Meth U (test code = 2427272880) Negative Negative OPIATES (test code = 5830204564) Negative Negative Cocaine Metabolite (test code = 0864518947) Negative Negative PROPOXY (test code = 4907143291) Negative Negative Tric U (test code = 9348372889) Negative Negative PCP (test code = 7050594442) Negative Negative OXYCOD (test code = 9523823487) Negative Negative ADELITA (test code = ADELITA) Urine Drug Cutoff Ranges Benzodiazepines: ? ? 150 ng/mLBarbiturates: ?200 ng/mLAmphetamine: ? 500 ng/mLCannabinoids: ?50 ?ng/mLMethadone: ? 200 ng/mLMethamphetamine: ? ? 500 ng/mL Opiates: ? 100 ng/mL or 2000 ng/mLCocaine: ? 150 ng/mLPropoxyphene: ?300 ng/mLTricyclics: ?300 ng/mLOxycodone: ? 100 ng/mLPCP: ? 25 ?ng/mL The results are to be used only for medical (i.e., treatment) purposes. Unconfirmed screening results must not be used for non-medical purposes (e.g., employment testing, legal testing). Lab Interpretation (test code = 34581-5) Normal [facility] - DRUG SCREEN [id number] 23:19:00* Test Item Value Reference Range Interpretation Comme nts BENZO U (test code = 1137357354) Negative Negative RENEE U (test code = 4242717775) Negative Negative AMPHET (test code = 3946010670) Negative Negative THC (test code = 4003790440) Negative Negative METHADONE (test code = 7552037249) Negative Negative Meth U (test code = 5093497378) Negative Negative OPIATES (test code = 7113065339) Negative Negative Cocaine Metabolite (test code = 2799364071) Negative Negative PROPOXY (test code = 1960508677) Negative Negative Tric U (test code = 2486778406) Negative Negative PCP (test code = 3932386120) Negative Negative OXYCOD (test code = 6260690105) Negative Negative ADELITA (test code = ADELITA) Urine Drug Cutoff Ranges Benzodiazepines: ? ? 150 ng/mLBarbiturates: ?200 ng/mLAmphetamine: ? 500 ng/mLCannabinoids: ?50 ?ng/mLMethadone: ? 200 ng/mLMethamphetamine: ? ? 500 ng/mL Opiates: ? 100 ng/mL or 2000 ng/mLCocaine: ? 150 ng/mLPropoxyphene: ?300 ng/mLTricyclics: ?300 ng/mLOxycodone: ? 100 ng/mLPCP: ? 25 ?ng/mL The results are to be used only for medical (i.e., treatment) purposes. Unconfirmed screening results must not be used for non-medical purposes (e.g., employment testing, legal testing). Lab Interpretation (test code = 56200-7) Normal [facility] - DRUG SCREEN [id number] 23:19:00* Test Item Value Reference Range Interpretation Comme nts BENZO U (test code = 1032935277) Negative Negative RENEE U (test code = 1422271760) Negative Negative AMPHET (test code = 9269523480) Negative Negative THC (test code = 8253741980) Negative Negative METHADONE (test code = 1139209580) Negative Negative Meth U (test code = 5007253433) Negative Negative OPIATES (test code = 5534013372) Negative Negative Cocaine Metabolite (test code = 8763956351) Negative Negative PROPOXY (test code = 4375506268) Negative Negative Tric U (test code = 4180062924) Negative Negative PCP (test code = 8133967215) Negative Negative OXYCOD (test code = 1676082708) Negative Negative ADELITA (test code = ADELITA) Urine Drug Cutoff Ranges Benzodiazepines: ? ? 150 ng/mLBarbiturates: ?200 ng/mLAmphetamine: ? 500 ng/mLCannabinoids: ?50 ?ng/mLMethadone: ? 200 ng/mLMethamphetamine: ? ? 500 ng/mL Opiates: ? 100 ng/mL or 2000 ng/mLCocaine: ? 150 ng/mLPropoxyphene: ?300 ng/mLTricyclics: ?300 ng/mLOxycodone: ? 100 ng/mLPCP: ? 25 ?ng/mL The results are to be used only for medical (i.e., treatment) purposes. Unconfirmed screening results must not be used for non-medical purposes (e.g., employment testing, legal testing). Lab Interpretation (test code = 36177-6) Normal [facility] - DRUG SCREEN [id number] 23:19:00* Test Item Value Reference Range Interpretation Comme nts BENZO U (test code = 6751053098) Negative Negative RENEE U (test code = 3528876255) Negative Negative AMPHET (test code = 3175732606) Negative Negative THC (test code = 8095774389) Negative Negative METHADONE (test code = 8711748795) Negative Negative Meth U (test code = 2818130285) Negative Negative OPIATES (test code = 6087956906) Negative Negative Cocaine Metabolite (test code = 7591800509) Negative Negative PROPOXY (test code = 4778726209) Negative Negative Tric U (test code = 1043519434) Negative Negative PCP (test code = 3374718070) Negative Negative OXYCOD (test code = 4596377727) Negative Negative ADELITA (test code = ADELITA) Urine Drug Cutoff Ranges Benzodiazepines: ? ? 150 ng/mLBarbiturates: ?200 ng/mLAmphetamine: ? 500 ng/mLCannabinoids: ?50 ?ng/mLMethadone: ? 200 ng/mLMethamphetamine: ? ? 500 ng/mL Opiates: ? 100 ng/mL or 2000 ng/mLCocaine: ? 150 ng/mLPropoxyphene: ?300 ng/mLTricyclics: ?300 ng/mLOxycodone: ? 100 ng/mLPCP: ? 25 ?ng/mL The results are to be used only for medical (i.e., treatment) purposes. Unconfirmed screening results must not be used for non-medical purposes (e.g., employment testing, legal testing). Lab Interpretation (test code = 24931-4) Normal [facility] - DRUG SCREEN [id number] 23:19:00* Test Item Value Reference Range Interpretation Comme nts BENZO U (test code = 5758762521) Negative Negative RENEE U (test code = 5101967901) Negative Negative AMPHET (test code = 9030852558) Negative Negative THC (test code = 3311634494) Negative Negative METHADONE (test code = 4416738168) Negative Negative Meth U (test code = 3088505475) Negative Negative OPIATES (test code = 2272665859) Negative Negative Cocaine Metabolite (test code = 1198032285) Negative Negative PROPOXY (test code = 6234808866) Negative Negative Tric U (test code = 0489589723) Negative Negative PCP (test code = 3124406916) Negative Negative OXYCOD (test code = 1457671951) Negative Negative ADELITA (test code = ADELITA) Urine Drug Cutoff Ranges Benzodiazepines: ? ? 150 ng/mLBarbiturates: ?200 ng/mLAmphetamine: ? 500 ng/mLCannabinoids: ?50 ?ng/mLMethadone: ? 200 ng/mLMethamphetamine: ? ? 500 ng/mL Opiates: ? 100 ng/mL or 2000 ng/mLCocaine: ? 150 ng/mLPropoxyphene: ?300 ng/mLTricyclics: ?300 ng/mLOxycodone: ? 100 ng/mLPCP: ? 25 ?ng/mL The results are to be used only for medical (i.e., treatment) purposes. Unconfirmed screening results must not be used for non-medical purposes (e.g., employment testing, legal testing). Lab Interpretation (test code = 32824-3) Normal [facility]<14 WEEKS US [id number] 16:05:38Limited USG for FHT: ?Single live IUP measured 10 6/7 weeks, consistent with LMP. ?Will date by LMPunless clinically indicated otherwise Boston Ponce MD ?08/06/2019 ?11:05 [facility]<14 WEEKS US [id number] 16:05:38Limited USG for FHT: ?Single live IUP measured 10 6/7 weeks, consistent with LMP. ?Will date by LMPunless clinically indicated otherwise Boston Ponce MD ?08/06/2019 ?11:05 [facility]<14 WEEKS US [id number] 16:05:38Limited USG for FHT: ?Single live IUP measured 10 6/7 weeks, consistent with LMP. ?Will date by LMP unless clinically indicated otherwise Boston Ponce MD ?08/06/2019 ?11:05 AM [facility]<14 WEEKS US [id number] 16:05:38Limited USG for FHT: ?Single live IUP measured 10 6/7 weeks, consistent with LMP. ?Will date by LMPunless clinically indicated otherwise Boston Ponce MD ?08/06/2019 ?11:05 [facility]<14 WEEKS US [id number] 16:05:38Limited USG for FHT: ?Single live IUP measured 10 6/7 weeks, consistent with LMP. ?Will date by LMPunless clinically indicated otherwise Boston Ponce MD ?08/06/2019 ?11:05 [facility]<14 WEEKS US [id number] 16:05:38Limited USG for FHT: ?Single live IUP measured 10 6/7 weeks, consistent with LMP. ?Will date by LMP unless clinically indicated otherwise Boston Ponce MD ?08/06/2019 ?11:05 AM [facility]<14 WEEKS US [id number] 16:05:38Limited USG for FHT: ?Single live IUP measured 10 6/7 weeks, consistent with LMP. ?Will date by LMPunless clinically indicated otherwise Boston Ponce MD ?08/06/2019 ?11:05 [facility]<14 WEEKS US [id number] 16:05:38Limited USG for FHT: ?Single live IUP measured 10 6/7 weeks, consistent with LMP. ?Will date by LMPunless clinically indicated otherwise Boston Ponce MD ?08/06/2019 ?11:05 [facility]2019-07-04 01:44:00* Test Item Value Reference Range Interpretation Comme nts BETA HCG (test code = 0408126649) See_Comment [Automated Spark[employer] ge] The system which generated this result transmitted reference range: Non- female and male patients: <5 mIU/mL. The reference range was not used to interpret this result as normal/abnormal. ADELITA (test code = ADELITA) Gestational Age ?Range (mIU/mL) 1-10 ?Weeks ?46-04812096-69 Weeks ?49238-04975459-02 Weeks ?3197-41958465-52 Weeks ?1535-605482 Biotin has been reported to cause a negative bias, interpret results relative to patient's use of biotin. [facility]:30:[facility]* Test Item Value Reference Range Interpretation Comme nts APPEARANCE (test code = 9123054003) Clear Clear COLOR (test code = 2381627142) Yellow Yellow PH (test code = 1575311647) 4.8-8.0 SP GRAVITY (test code = 9444890798) 1.003-1.030 GLU U QUAL (test code = 4384026093) Normal Normal BLOOD (test code = 6863967731) Negative Negative KETONES (test code = 4237357647) Negative Negative PROTEIN (test code = 2887-8) Negative Negative UROBILIN (test code = 5306418305) Normal Normal BILIRUBIN (test code = 5503179247) Negative Negative NITRITE (test code = 5087824575) Negative Negative LEUK DAVID (test code = 6675706337) Negative Negative RBC/HPF (test code = 4756120465) See_Comment [Automated messa ge] The system which generated this result transmitted reference range: 0 - 3 HPF. The reference range was not used to interpret this result as normal/abnormal. WBC/HPF (test code = 0666811786) <1 See_Comment [Automated messa ge] The system which generated this result transmitted reference range: 0 - 5 HPF. The reference range was not used to interpret this result as normal/abnormal. BACTERIA (test code = 3455798738) Few Negative A MUCOUS (test code = 8927915918) Slight Negative LPF A SQ EPITH (test code = 8405848296) HPF HYAL CAST (test code = 8721844597) See_Comment [Automated messa ge] The system which generated this result transmitted reference range: <=2 LPF. The reference range was not used to interpret this result as normal/abnormal. TRANS EPI (test code = 8763812418) <1 See_Comment [Automated messa ge] The system which generated this result transmitted reference range: <=1 HPF. The reference range was not used to interpret this result as normal/abnormal. Lab Interpretation (test code = 41427-4) Abnormal [facility]. METABOLIC PANEL (81282)2019-07-04 01:02:00* Test Item Value Reference Range Interpretation Comme nts NA (test code = 3591225822) 138 mmol/L 135-145 K (test code = 6914089501) 3.8 mmol/L 3.5-5 CL (test code = 6077357017) 102 mmol/L 98-108 CO2 TOTAL (test code = 9675688595) 24 mmol/L 23-31 AGAP (test code = 5820334390) 2-16 BUN (test code = 5832617331) 18 mg/dL 7-23 GLUCOSE (test code = 2555366001) 87 mg/dL 70-110 CREATININE (test code = 2967136699) 0.67 mg/dL 0.5-1.04 TOTAL BILI (test code = 0051017112) 0.2 mg/dL 0.1-1.1 CALCIUM (test code = 7591035398) 9.7 mg/dL 8.6-10.6 T PROTEIN (test code = 7034253381) 7.6 g/dL 6.3-8.2 ALBUMIN (test code = 0652770969) 4.7 g/dL 3.5-5 ALK PHOS (test code = 5906796259) 43 U/L 34-122 ALTv (test code = 1742-6) 20 U/L 5-35 AST(SGOT) (test code = 8030019149) 26 U/L 13-40 eGFR Calculation (Non-) (test code = 6284182233) mL/min/1.73m2 eGFR Calculation () (test code = 3062185954) mL/min/1.73m2 ADELITA (test code = ADELITA) Association of Glomerular Filtration Rate (GFR) and Staging of Kidney Disease* + -+ + ---+| GFR (mL/min/1.73 m2) ?| With Kidney Damage ?| ?Without Kidney Damage+ -------+ ------+ ---------+| ?>90 ?| ?Stage one ?| ? Normal ?+ --+ -+ ----+| ?60-89 ?| ?Stage two ?| ? Decreased GFR ? + -+ + ---+| ?30-59 ?| ?Stage three ?| ? Stage three ? + -+ + ---+| ?15-29 ?| ?Stage four ? | ? Stage four ?+ --+ -+ ----+| ?<15 (or dialysis) ? ?| ?Stage five ? | ? Stage five ?+ --+ -+ ----+ *Each stage assumes the associated GFR level has been in effect for at least three months. ?Stages 1 to 5, with or without kidney disease, indicate chronic kidney disease. Notes: Determination of stages one and two (with eGFR >59mL/min/1.73 m2) requires estimation of kidney damage for at least three months as defined by structural or functional abnormalities of the kidney, manifested by either:Pathological abnormalities or Markers of kidney damage (including abnormalities in the composition of the blood or urine or abnormalities in imaging tests). [facility] WITH [id number] 00:47:00* Test Item Value Reference Range Interpretation Comme nts WBC (test code = 6690-2) See_Comment [Automated messa ge] The system which generated this result transmitted reference range: 4.30 - 11.10 10*3/?L. The reference range was not used to interpret this result as normal/abnormal. RBC (test code = 789-8) See_Comment [Automated Sparktrenda ge] The system which generated this result transmitted reference range: 3.93 - 5.25 10*6/?L. The reference range was not used to interpret this result as normal/abnormal. HGB (test code = 718-7) 12.2 g/dL 11.6-15 HCT (test code = 4544-3) 36.6 % 35.7-45.2 MCV (test code = 787-2) 88.6 fL 80.6-95.5 MCH (test code = 785-6) 29.5 pg 25.9-32.8 MCHC (test code = 786-4) 33.3 g/dL 31.6-35.1 RDW-SD (test code = 25156-4) 40.4 fL 39-49.9 RDW-CV (test code = 788-0) 12.5 % 12-15.5 PLT (test code = 777-3) See_Comment [Automated Spark[employer]ren[employer] ge] The system which generated this result transmitted reference range: 166 - 358 10*3/?L. The reference range was not used to interpret this result as normal/abnormal. MPV (test code = 29898-6) 8.8 fL 9.5-12.9 L NRBC/100 WBC (test code = 3965255751) See_Comment [Automated [employer] ssage] The system which generated this result transmitted reference range: 0.0 - 10.0 /100 WBCs. The reference range was not used to interpret this result as normal/abnormal. NRBC x10^3 (test code = 4326568472) <0.01 See_Comment [Automated [employer] ge] The system which generated this result transmitted reference range: 10*3/?L. The reference range was not used to interpret this result as normal/abnormal. GRAN MAT (NEUT) % (test code = 770-8) 63.3 % IMM GRAN % (test code = 0320717427) 0.30 % LYMPH % (test code = 736-9) 28.1 % MONO % (test code = 5905-5) 6.8 % EOS % (test code = 713-8) 1.0 % BASO % (test code = 706-2) 0.5 % GRAN MAT x10^3(ANC) (test code = 6346169850) 5.95 10*3/uL 1.88-7.09 IMM GRAN x10^3 (test code = 3238236837) 0.03 10*3/uL 0-0.06 LYMPH x10^3 (test code = 731-0) 2.64 10*3/uL 1.32-3.29 MONO x10^3 (test code = 742-7) 0.64 10*3/uL 0.33-0.92 EOS x10^3 (test code = 711-2) 0.09 10*3/uL 0.03-0.39 BASO x10^3 (test code = 704-7) 0.05 10*3/uL 0.01-0.07 Lab Interpretation (test code = 50040-6) [facility] [id number] 00:39:00* Test Item Value Reference Range Interpretation Comme nts POCT PREG (test code = 1605) positive On board controls acceptable with C Line (test code = 3574) positive POCT PREG LOT # (test code = 3575) [id number] POCT PREG TEST DATE ( test code = 3576) 09/13/2020 Lab Interpretation (test cod e = 71685-9) Normal [facility] Center[facility] GROUP [id number] 18:21:00* Test Item Value Reference Range Interpretation Comme nts Streptococcus pyogenes (grou p A) antigen (test code = 83880-1) Negative Negative Lab Interpretation (test cod e = 31129-0) Normal [facility] Notes Date/Time Note Provider Source 2023-07-11 15:29:58 Pt given printed and verbal discharge instructions regarding fever, strep pharyngitis, dehydration, encouraged hydration, 0 Prescriptions provided Discussed ibuprofen and to take with food to avoid GI distress. Pt verbalized understanding of instructions, pt awake alert oriented, resp reg unlabored, skin w/d, color appropriate for race, moves all ext well,pt encouraged to follow up with pcp. Advised to seek medical attention for new/prolonged/worsening of symptoms, Symptoms improved. No adverse reaction to meds given in ER noted upon discharge PIV d'cd, dressing to site, catheter in tact. Awake, alert oriented, resp reg unlabored, skin w/d, pt leaving amb with steady gait, in no apparent distress, [facility] 2023-07-11 14:55:50 Report given to Winston Melvin RN. Updated on patient's medical history, history of present condition and plan of care. Melody Velez RN [facility] 2023-07-11 13:43:24 Patient arrived ambulatory c/o of headache that started yesterday morning and took over the counter which did not help. Patient started left chest pain through her neck last night. Body aches. Shonda Melvin RN [facility]"
[2024-07-06] MEDS ORDERED: FAMOTIDINE 20 MG/2 ML VIAL IV ONE (13:25)
[2024-07-06] MEDS ORDERED: MORPHINE 4 MG/ML SYR ONE (13:29)
[2024-07-06 13:39] LABS: Specific Gravity 1.009 (1.005-1.030)
[2024-07-06 13:40] LABS: Absolute Eosinophils 0.1 K/uL (0-0.5); Absolute Lymphocytes (CBC) 1.7 K/uL (0.7-4.9); Absolute Monocytes 0.8 K/uL (0.1-1.3); Absolute Neutrophil 4.8 K/uL (1.8-8.0); Basophils % 0.5 % (0-1.3); Eosinophils % 0.8 % (0-4.4); Hematocrit 38.8 % (36.0-45.0); Hemoglobin 13.1 g/dL (12.0-15.0); Lymphocytes % 22.8 % (15.3-44.8); MCH 28.6 pg (27.0-35.0); MCHC 33.9 g/dL (32.0-36.0); MCV 84.3 fL (80-100); Monocytes % 10.7 % (3.3-12.3); Neutrophils % 65.2 % (41.7-73.7); Platelets 296 thou/uL (152-406); Red Cell Distribution Width 13.5 % (12.1-15.2)
[2024-07-06 13:56] LABS: Albumin 4.1 g/dL (3.4-5.0); Albumin/Globulin Ratio 1.1 (1.1-1.8); Anion Gap 7.5 mEq/L (5.0-15.0); Bilirubin Total 0.3 mg/dL (0.2-1.0); Globulin 3.7 g/dL (2.3-3.5); Potassium 3.5 mEq/L (3.5-5.1); Protein, Total 7.8 g/dL (6.4-8.2)
--- NOTE | 2024-07-06 14:49 | RAD REPORT ---
EXAMINATION: CT ABDOMEN AND PELVIS WITH CONTRAST CLINICAL INDICATION: ABD PAIN TECHNIQUE: CT abdomen and pelvis was performed, after the administration of IV contrast, as per [facility] protocol. Axial, sagittal and coronal reconstructions were obtained. One or more of the following dose reduction techniques were used: Automated exposure control, adjustment of the mA and k V according to patient size, and iterative reconstruction. Unless otherwise specified, incidental findings do not require dedicated imaging follow-up. COMPARISON: No prior exam. FINDINGS: LOWER CHEST: The visualized lung bases are clear. LIVER: Normal in size and contour. No focal lesion. Grossly unremarkable gallbladder. SPLEEN: Normal size. No focal lesion. PANCREAS: No mass, ductal dilation, or lacy-pancreatic fluid. ADRENALS: Normal; no mass. KIDNEYS: Normal size and contour. No hydronephrosis. GASTROINTESTINAL TRACT: No evidence of free air, significant intra-abdominal free fluid, bowel obstru ction or abscess. Moderate stool retention throughout the colon. APPENDIX: Appendix not visualized, but no inflammatory changes in region of appendix. LYMPH NODES: No lymphadenopathy. MUSCULOSKELETAL: No acute or suspicious osseous abnormality. ADDITIONAL FINDINGS: Small fat-containing umbilical hernia. IMPRESSION: No acute abnormalities seen in the abdomen or pelvis.
--- NOTE | 2024-07-06 16:07 | RAD REPORT ---
EXAMINATION: US PELVIS TRANSABDOMINAL WITH DOPPLER CLINICAL INDICATION: Female 28 years old. PELVIC PAIN TECHNIQUE: Real-time ultrasonography of the pelvis was performed transvaginally. Color and spectral D oppler evaluation of the ovaries was performed. COMPARISON: No prior exam. FINDINGS: UTERUS AND CERVIX: The uterus measures 7.4 x 5.3 x 3.7 cm (cervix to fundus x AP x transverse). The u terus is normal. No masses seen The endometrium is normal, 14 mm in thickness. RIGHT OVARY: Normal. The right ovary measures 3.8 x 1.7 x 1.7 cm. Normal color and spectral Doppler evaluation of the right ovary.. LEFT OVARY: Normal. The left ovary measures 3.7 x 2.4 x 2.7 cm. Normal color and spectral Doppler evaluation of the left ovary.. FREE FLUID: No free fluid. IMPRESSION: Unremarkable exmaination.
--- NOTE | 2024-07-06 16:26 | ER ---
Nurse's Notes [facility] Name: Maria Rivera Age: 28 yrs Sex: Female : 1995 Arrival Date: 07/06/2024 Time: 12:04 Bed 13 Private MD: Diagnosis: Lower abdominal pain, unspecified Presentation: 07/06 12:20 Chief complaint: Patient states: FEVER, HEADACHE, LOWER ABDOMINAL PAIN THAT RADIATED TO dd2 THE LT SIDE, VOMITING ONCE TODAY, RUNNY NOSE AND SORE THROAT SINCE YESTERDAY. PT REPORTS WENT TO THE URGENT CARE [facility]N WAS ADVISED TO COME HERE. Coronavirus screen: fever, headache, runny nose, sore throat, vomiting. Ebola Screen: No symptoms or risks identified at this time. Initial Sepsis Screen: Does the patient meet any 2 criteria? No. Patient's initial sepsis screen is negative. Does the patient have a suspected source of infection? No. Patient's initial sepsis screen is negative. Risk Assessment: Do you want to hurt yourself or someone else? Patient reports no desire to harm self or others. Onset of symptoms was July 05, 2024. 12:20 Method Of Arrival: Ambulatory dd2 12:20 Acuity: BROOKE 3 dd2 Triage Assessment: 12:23 General: Appears in no apparent distress. uncomfortable, Behavior is calm, cooperative, dd2 appropriate for age. Pain: Complains of pain in right lower quadrant and left lower quadrant Pain radiates to anterior aspect of left lateral abdomen Pain currently is 6 out of 10 on a pain scale. GI: Abdomen is non-distended, Abd is soft X 4 quads Abdomen is tender to palpation in left lower quadrant Reports lower abdominal pain, vomiting. 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 - Infectious Disease History:: Denies. - Social history:: Smoking status: Patient denies any tobacco usage or history of. Screenin:42 [facility] ED Fall Risk Assessment (Adult) History of falling in the last 3 months, ld1 including since admission No falls in past 3 months (0 pts) Confusion or Disorientation No (0 pts) Intoxicated or Sedated No (0 pts) Impaired Gait No (0 pts) Mobility Assist Device Used No (0 pt) Altered Elimination No (0 pt) Score/Fall Risk Level 0 - 2 = Low Risk Oriented to surroundings, Hourly rounding (assess needs \T\ fall precautionary measures) done. Abuse screen: Denies threats or abuse. Denies injuries from another. Nutritional screening: No deficits noted. Tuberculosis screening: No symptoms or risk factors identified. Assessment: 13:42 General: Appears in no apparent distress. uncomfortable, Behavior is crying. Pain: ld1 Complains of pain in left lower quadrant Pain does not radiate. Pain currently is 9 out of 10 on a pain scale. Quality of pain is described as sharp, shooting, throbbing, Pain began 4 hours ago. Is continuous. Neuro: Level of Consciousness is awake, alert, obeys commands, Oriented to person, place, time, situation. Cardiovascular: Capillary refill < 3 seconds Patient's skin is warm and dry. Respiratory: Airway is patent Respiratory effort is even, unlabored. GI: Abdomen is flat, non-distended, Bowel sounds present X 4 quads. Reports lower abdominal pain. GI: Reports nausea, vomiting. : No signs and/or symptoms were reported regarding the genitourinary system. EENT: No signs and/or symptoms were reported regarding the EENT system. Derm: No signs and/or symptoms reported regarding the dermatologic system. Musculoskeletal: No signs and/or symptoms reported regarding the musculoskeletal system. Vital Signs: 12:20 BP 129 / 82; Pulse 84; Resp 16; Temp 97.9; Pulse Ox 100% on R/A; Weight 72.12 kg; dd2 Height 5 ft. 4 in. ; Pain 7/10; 13:42 BP 122 / 82; Pulse 87; Resp 18; Pulse Ox 99% on R/A; Pain 9/10; ld1 15:59 Pulse 75; Resp 18; Pulse Ox 100% on R/A; ld1 12:20 Body Mass Index 27.29 (72.12 kg, 162.56 cm) dd2 12:20 Pain Scale: Adult dd2 13:42 Pain Scale: Adult ld1 ED Course: 12:13 Patient arrived in ED. cj3 12:18 Reynold Andujar DO is Attending Physician. ms3 12:23 Triage completed. dd2 12:23 Arm band placed on right wrist. dd2 13:41 Teresa Andujar, RN is Primary Nurse. ld1 13:42 Patient has correct armband on for positive identification. Placed in gown. Bed in low ld1 position. Call light in reach. Side rails up X2. Pulse ox on. NIBP on. Door closed. Noise minimized. Warm blanket given. 13:42 No provider procedures requiring assistance completed. Inserted saline lock: 20 gauge ld1 in right antecubital area, using aseptic technique. Blood collected. Flushed with 10 mL NS. 14:21 CT Abd/Pelvis - IV Contrast Only In Process Unspecified. EDMS 16:01 Transvaginal Study Probe In Process Unspecified. EDMS 16:02 US Pelvis Complete In Process Unspecified. EDMS 16:24 Haja Farrar DO is Referral Physician. ms3 16:55 IV discontinued, intact, bleeding controlled, No redness/swelling at site. ld1 Administered Medications: 13:42 Drug: Famotidine IVP 20 mg IVP once; dilute with 10 mL 0.9% NaCl; give over 2 minutes ld1 Route: IVP; Site: right antecubital; 13:42 Drug: morphine IVP or IV 4 mg IVP once over 4 mins Route: IVP; Infused Over: 4 mins; ld1 Site: right antecubital; Medication: 13:42 VIS not applicable for this client. ld1 Outcome: 16:25 Discharge ordered by MD. ms3 16:55 Discharged to home ambulatory, ld1 16:55 Condition: stable 16:55 Discharge instructions given to patient, Instructed on discharge instructions, follow up and referral plans. Demonstrated understanding of instructions, follow-up care, 16:55 Patient left the ED. ld1 Signatures: Dispatcher [employer] EDMS Reynold Andujar DO DO ms3 Teresa Andujar RN RN ld1 SANDRA COLBY RN RN dd2 Maddi Chua cj3
--- NOTE | 2024-07-06 16:26 | EDPHYS ---
Physician Documentation [facility] Name: Maria Rivera Age: 28 yrs Sex: Female : 1995 Arrival Date: 07/06/2024 Time: 12:04 Bed 13 Private MD: ED Physician Reynold Andujar HPI: 07/06 12:25 This 28 yrs old Female presents to ER via Ambulatory with complaints of Abdominal Pain ms3 - LT, Nausea/Vomiting, Headache. 12:25 28-year-old female with past medical history of ovarian cysts presents to the emergency ms3 department for left lower quadrant abdominal pain that began last night. Patient states her pain is a 7/10 at this time. Patient endorses nausea, vomiting, fevers.. 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 - Infectious Disease History:: Denies. - Social history:: Smoking status: Patient denies any tobacco usage or history of. ROS: 12:25 Constitutional: Negative for fever, and chills. Cardiovascular: Negative for chest ms3 pain, and palpitations. Respiratory: Negative for shortness of breath, cough, wheezing, and pleuritic chest pain, MS/Extremity: Negative for injury and deformity, 12:25 Abdomen/GI: Positive for abdominal pain, nausea and vomiting, Exam: 12:25 Constitutional: This is a well developed, well nourished patient who is awake, alert, ms3 and in no acute distress. Cardiovascular: Regular rate and rhythm with a normal S1 and S2. No gallops, murmurs, or rubs. Normal PMI, no JVD. No pulse deficits. Respiratory: Lungs have equal breath sounds bilaterally, clear to auscultation and percussion. No rales, rhonchi or wheezes noted. No increased work of breathing, no retractions or nasal flaring. Skin: Warm, dry with normal turgor. Normal color with no rashes, no lesions, and no evidence of cellulitis. MS/ Extremity: Pulses equal, no cyanosis. Neurovascular intact. Full, normal range of motion. 12:25 Abdomen/GI: Inspection: abdomen appears normal, Bowel sounds: normal, in all quadrants, Palpation: moderate abdominal tenderness, in the left lower quadrant, Vital Signs: 12:20 BP 129 / 82; Pulse 84; Resp 16; Temp 97.9; Pulse Ox 100% on R/A; Weight 72.12 kg; dd2 Height 5 ft. 4 in. ; Pain 7/10; 13:42 BP 122 / 82; Pulse 87; Resp 18; Pulse Ox 99% on R/A; Pain 9/10; ld1 15:59 Pulse 75; Resp 18; Pulse Ox 100% on R/A; ld1 12:20 Body Mass Index 27.29 (72.12 kg, 162.56 cm) dd2 12:20 Pain Scale: Adult dd2 13:42 Pain Scale: Adult ld1 MDM: 12:25 Differential diagnosis: Nonspecific abd pain, diverticulitis, Ovarian cyst. ms3 12:29 Medical Screening Exam initiated ms3 18:53 Data reviewed: vital signs, nurses notes, lab test result(s), radiologic studies, and ms3 as a result, I will discharge patient. I considered the following discharge prescriptions or medication management in the emergency department Medications were administered in the Emergency Department. See MAR. Counseling: I had a detailed discussion with the patient and/or guardian regarding the historical points, exam findings, and any diagnostic results supporting the discharge/admit diagnosis, lab results, radiology results, the need for outpatient follow up, to return to the emergency department if symptoms worsen or persist or if there are any questions or concerns that arise at home. Special discussion: Based on the patient's Hx, exam, and Dx evaluation, there is no indication for emergent surgery or inpatient Tx. It is understood by the patient/guardian that if the Sx's persist or worsen they need to return immediately for re-evaluation. ED course: Discussed labs and imaging with patient. Patient to follow-up with primary care physician in 2 to 3 days. Patient understands and agrees with plan. All questions were answered. Return precautions discussed include worsening symptoms, or any other concerns. On reevaluation patient is alert and oriented x 4, no apparent distress, nontoxic-appearing, speaking full sentences.. 07/06 12:21 Order name: CBC with Diff; Complete Time: 14:01 ms3 07/06 12:21 Order name: CMP; Complete Time: 14:01 ms3 07/06 12:21 Order name: Test, Urine; Complete Time: 14:01 ms3 07/06 14:02 Order name: CT Abd/Pelvis - IV Contrast Only; Complete Time: 15:01 ms3 07/06 15:12 Order name: US Pelvis Complete; Complete Time: 16:10 ms3 07/06 16:00 Order name: Transvaginal Study Probe; Complete Time: 16:10 EDMS 07/06 12:21 Order name: IV Saline Lock; Complete Time: 13:42 ms3 07/06 12:21 Order name: Labs collected and sent; Complete Time: 13:42 ms3 Administered Medications: 13:42 Drug: Famotidine IVP 20 mg IVP once; dilute with 10 mL 0.9% NaCl; give over 2 minutes ld1 Route: IVP; Site: right antecubital; 13:42 Drug: morphine IVP or IV 4 mg IVP once over 4 mins Route: IVP; Infused Over: 4 mins; ld1 Site: right antecubital; Disposition Summary: 07/06/24 16:25 Discharge Ordered Notes: Location: Home ms3 Condition: Stable ms3 Diagnosis - Lower abdominal pain, unspecified ms3 Followup: ms3 - With: Haja Farrar DO - When: 2 - 3 days - Reason: Recheck today's complaints Discharge Instructions: - Discharge Summary Sheet ms3 - Abdominal Pain, Adult ms3 Forms: - Work release form la1 - Medication Reconciliation Form ms3 - Antibiotic Education ms3 - Prescription Opioid Use ms3 - Patient Portal Instructions ms3 - Leadership Thank You Letter ms3 Signatures: Dispatcher [employer] EDReynold Lao DO DO ms3 Teresa Andujar RN RN ld1 SANDRA COLBY RN RN dd2
[2024-07-06 16:59] VITALS: TEMP 97.9
[2024-07-06 17:01] VITALS: BP 122/82
[2024-07-06 17:03] VITALS: O2SAT 100
== END 2024-07-06 16:55 | disposition home or self-care (01) ==
LOC: ER 12:04
DX: R10.32 Left lower quadrant pain (principal); R11.2 Nausea with vomiting, unspecified
CPT/HCPCS: 36415; 74177; 76830; 76856; 80053; 81025; 85025; 96374; 96375; 99284